=== PATIENT | male | born 1955 | race Caucasian/White ===

== ENCOUNTER 2021-08-27 10:27 | Outpatient (REF) | payer MEDICARE, SELFPAY ==
--- NOTE | ~2021-08-27 | XR_ITS ---
EXAMINATION: XR SHOULDER, RIGHT CLINICAL INFORMATION: Right shoulder pain COMPARISON: None TECHNIQUE: AP external rotation, Grashey, scapular Y, and axillary views of the right shoulder. FINDINGS: No acute fracture or dislocation. Glenohumeral joint space is maintained. Minimal marginal osteophyte formation at the inferior glenoid and inferior humeral head. Acromiohumeral interval is maintained. No periarticular soft tissue calcification. Acromioclavicular arthropathy is characterized by joint space narrowing with subchondral sclerosis and osteophyte formation. Mild chondrocalcinosis at the AC joint. Postsurgical changes of ACDF in the lower cervical spine noted. Visualized right lung as grossly clear. XR/XR shoulder RT min 2V IMPRESSION: 1. No acute osseous injury. 2. Advanced acromioclavicular arthropathy. 3. Minimal glenohumeral joint degenerative change with preserved joint space.
== END 2021-08-27 10:28 | disposition home or self-care (01) ==
LOC: HO.XRAY 10:27
PROVIDERS: PCP Family Medicine; Visit Provider Family Medicine
DX: M25.511 Pain in right shoulder (principal)
CPT/HCPCS: 73030

== ENCOUNTER → 2021-11-09 13:53 | Outpatient (BNVA) | payer MEDICARE, SELFPAY | PROVIDERS: PCP Family Medicine; Visit Provider Physician Assistant | DX: M19.011 Primary osteoarthritis, right shoulder (principal) | CPT/HCPCS: 20610; 99202; J1040 ==

== ENCOUNTER 2022-04-29 09:31 | Emergency (ER) | payer MEDICARE, SELFPAY ==
--- NOTE | 2022-04-29 | ECG_ITS ---
Test Reason : cp Blood Pressure : / mmHG Vent. Rate : 068 BPM Atrial Rate : 068 BPM P-R Int : 160 ms QRS Dur : 104 ms QT Int : 382 ms P-R-T Axes : -12 021 026 degrees QTc Int : 406 ms Normal sinus rhythm Normal ECG No previous ECGs available Referred By: Generic ED Physician Electronically Signed By:Harvey Lopez
[2022-04-29 09:33] VITALS: BP 149/88; PULSE 70; RESP 18; TEMP 36.3; O2SAT 96; BMI 33.4
[2022-04-29 09:48] VITALS: BP 139/88; PULSE 67; RESP 14; TEMP 36.7; O2SAT 97
[2022-04-29 10:21] LABS: Hematocrit 46.8 % (42.0-52.0); Hemoglobin 16.1 g/dl (14.0-18.0); Mean Corpuscular HGB Conc 34.4 g/dl (31.0-36.0); Mean Corpuscular Volume 87.3 fL (80.0-98.0); Mean Platelet Volume 8.7 fL (9.4-12.4); Platelet Count 185 X10*3/uL (160-400); Red Blood Count 5.36 X10*6/uL (4.60-5.80); Red Cell Distribution Width 12.6 % (11.0-16.0); White Blood Count 6.5 X10*3/uL (4.8-10.8)
[2022-04-29 10:26] LABS: Prothrombin Time 11.8 SEC (10.0-13.1)
[2022-04-29 10:42] LABS: Anion Gap 13 (12-20); Blood Urea Nitrogen 16 mg/dL (9-16); Calcium 9.4 mg/dL (8.4-10.2); Carbon Dioxide 25 mmol/L (22-29); Chloride 107 mmol/L (96-108); Creatinine Clr Calc Pharmacy 87.8; Estimated Glomerular Filt Rate > 60; Glucose Random 100 mg/dL (60-115); Potassium 4.2 mmol/L (3.3-5.1); Sodium 141 mmol/L (135-145)
[2022-04-29 10:54] LABS: Troponin-I High Sensitivity < 3.5 ng/L (<3.5-35.0)
--- NOTE | 2022-04-29 12:12 | ED_ITS ---
HPI - Chest Pain General Chief Complaint: Chest Pain Stated Complaint: chest pain Time Seen by Provider: 04/29/22 09:46 Source: patient Mode of arrival: ambulatory History of Present Illness HPI narrative: 67-year-old male without significant past medical history states he has been having 6 months of intermittent racing heart and was walking with his daughter last night and stated that he was having some palpitations and put on her Apple watch which demonstrated a heart rate of over 160. Patient denies any shortness of breath, dizziness, diaphoresis or nausea with his event and just ?rode it out?. Patient denies any current chest pain, palpitations, shortness of breath and states he does want to come in and get checked out. Related Data Previous Rx's Medication Instructions Recorded meloxicam 15 mg tablet 15 mg PO DAILY 30 days #30 tabs 05/21/21 cyclobenzaprine 10 mg tablet 10 mg PO TID PRN muscle spasm 10 08/27/21 days #30 tabs diclofenac potassium 50 mg tablet 50 mg PO TID PRN pain 14 days #42 08/27/21 tabs Allergies Allergy/AdvReac Type Severity Reaction Status Date / Time sildenafil [Viagra] AdvReac Unknown ineffective Verified 11/09/21 14:04 Review of Systems Review of Systems: Pertinent positives and negatives as stated in HPI [facility] Past Medical History Source: nursing notes reviewed Surgical History History of carpal tunnel release History of fusion of cervical spine History of repair of laceration Family History Family History Father Dementia Mother CHF (congestive heart failure) Hypertension Brother Afib Son In good health Daughter In good health Daughter In good health Sister No problems noted. 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 GENERAL: Well developed, well nourished, in no acute distress. HEAD: Normocephalic/atraumatic EYES: PERRLA, EOMI LUNGS: Normal breath sounds. No adventitious sounds or accessory muscle use. SpO2<97> CARDIOVASCULAR: Regular rate and rhythm without noted murmurs, no JVD or lower extremity edema. ABDOMEN: Soft, non-tender, non-distended with bowel sounds. MUSCULOSKELETAL: No tenderness, deformities, or effusions noted on gross inspection. EXTREMITIES: No cyanosis, clubbing or edema. SKIN: Inspection of the skin reveals no rashes NEUROLOGIC: Alert and oriented x 4. Strength and sensation to light touch were grossly intact x 4. Medical Decision Making Medical Decision Making [facility] Narrative: 67-year-old male who presents for evaluation for palpitations, I reviewed all investigations and I do not find any evidence of infection, anemia, electrolyte abnormalities and troponin is within normal limits. EKG does not demonstrate atrial fibrillation, however history sounds very suspicious for either intermittent SVT or atrial fibrillation he will be referred to Cardiology for either a Holter monitor or event monitor. He knows that he needs to follow-up with his primary care provider by calling the office TODAY. Differential Diagnosis Please see the discussion above Lab Data Please see the discussion above 04/29/22 10:14 04/29/22 10:14 Labs: Lab Results 04/29/22 04/29/22 04/29/22 Range/Units 10:14 10:14 10:14 WBC 6.5 (4.8-10.8) X10*3/uL RBC 5.36 (4.60-5.80) X10*6/uL Hgb 16.1 (14.0-18.0) g/dl Hct 46.8 (42.0-52.0) % MCV 87.3 (80.0-98.0) fL MCH 30.0 (27.0-33.0) pg MCHC 34.4 (31.0-36.0) g/dl RDW 12.6 (11.0-16.0) % Plt Count 185 (160-400) X10*3/uL MPV 8.7 L (9.4-12.4) fL Absolute Nucleated RBC 0.000 (0.0-0.012) X10*3/uL Nucleated RBC % (auto) 0.0 (0.0-0.2) /100WBC PT 11.8 (10.0-13.1) SEC INR 1.0 (0.9-1.1) Sodium 141 (135-145) mmol/L Potassium 4.2 (3.3-5.1) mmol/L Chloride 107 (96-108) mmol/L Carbon Dioxide 25 (22-29) mmol/L Anion Gap 13 (12-20) BUN 16 (9-16) mg/dL Creatinine 0.96 (0.5-1.4) mg/dL Estim Creat Clear Calc 87.8 Estimated GFR > 60 Random Glucose 100 (60-115) mg/dL Calcium 9.4 (8.4-10.2) mg/dL Troponin I High Sens (<3.5-35.0) ng/L 04/29/22 Range/Units 10:14 WBC (4.8-10.8) X10*3/uL RBC (4.60-5.80) X10*6/uL Hgb (14.0-18.0) g/dl Hct (42.0-52.0) % MCV (80.0-98.0) fL MCH (27.0-33.0) pg MCHC (31.0-36.0) g/dl RDW (11.0-16.0) % Plt Count (160-400) X10*3/uL MPV (9.4-12.4) fL Absolute Nucleated RBC (0.0-0.012) X10*3/uL Nucleated RBC % (auto) (0.0-0.2) /100WBC PT (10.0-13.1) SEC INR (0.9-1.1) Sodium (135-145) mmol/L Potassium (3.3-5.1) mmol/L Chloride (96-108) mmol/L Carbon Dioxide (22-29) mmol/L Anion Gap (12-20) BUN (9-16) mg/dL Creatinine (0.5-1.4) mg/dL Estim Creat Clear Calc Estimated GFR Random Glucose (60-115) mg/dL Calcium (8.4-10.2) mg/dL Troponin I High Sens < 3.5 (<3.5-35.0) ng/L Independent Interpretation I performed an independent interpretation of an: EKG Interpretation: Normal sinus rhythm, HR-68, no STEMI, NH/QRS/QTC is within normal limits External Record Review External record reviewed: Prior outpatient labs Discharge Plan Discharge Clinical Impression: Palpitations Patient Disposition: Home, Self-Care Instructions: Heart Palpitations (DC) Additional Instructions: 1. Recommend to stop your alcohol intake, try to limit your caffeine intake. 2. Call the office of Cardiology today to set up an appointment for Holter monitor and/or event monitor for further characterization of these palpitations that you have been experiencing. 3. Follow-up with primary care provider by calling the office today to set up an appointment for further outpatient management. Return to the ER for any worsening symptoms. Prescriptions: No Action meloxicam 15 mg tablet 15 mg PO DAILY 30 Days Qty: 30 1RF Rx Instructions: Take with food diclofenac potassium 50 mg tablet 50 mg PO TID PRN (Reason: pain) 14 Days Qty: 42 0RF cyclobenzaprine 10 mg tablet 10 mg PO TID PRN (Reason: muscle spasm) 10 Days Qty: 30 0RF Referrals: Gabe Warren MD [Primary Care Provider] - Harvey Lopez MD [Physician] - 1 day (Patient with intermittent palpitations for 6 months, apple watch identified a rate of over 160 yesterday, patient completely asymptomatic on presentation to this emergency room, no evidence of infection/anemia/electrolyte abnormality but patient does drink alcohol daily.)
== END 2022-04-29 13:00 | disposition home or self-care (01) ==
PROVIDERS: Emergency Provider Student in an Organized Health Care Education/Training Program; PCP Family Medicine
DX: R07.89 Other chest pain (principal); R00.2 Palpitations; Z79.899 Other long term (current) drug therapy
CPT/HCPCS: 36415; 80048; 84484; 85027; 85610; 93005; 99283; 99285

== ENCOUNTER → 2022-06-20 15:05 | Outpatient (BNVA) | payer MEDICARE, SELFPAY | PROVIDERS: PCP Family Medicine; Referring Provider Family Medicine; Visit Provider Nurse Practitioner Family | DX: R00.2 Palpitations (principal); R06.02 Shortness of breath | CPT/HCPCS: 99202 ==

== ENCOUNTER → 2022-08-26 10:00 | Outpatient (BNV) | payer MEDICARE, SELFPAY | PROVIDERS: PCP Family Medicine; Visit Provider Internal Medicine Cardiovascular Disease | DX: I48.91 Unspecified atrial fibrillation (principal) | CPT/HCPCS: 93244; 93306 ==

== ENCOUNTER → 2022-08-26 10:23 | Outpatient (REF) | payer MEDICARE, SELFPAY ==
--- NOTE | 2022-08-26 10:25 | HM_ITS ---
Conclusion: 1. Patient was monitored for total period of 5 days 2. Baseline was normal sinus rhythm with average heart of 74 beats per minute 3. Intermittent episodes of atrial fibrillation with total burden of 13.2% with longest episode lasting 15 hours and 53 minutes on day 3 with the fastest heart rate of 200 beats per minute 4. Rare PACs noted 5. No significant pauses noted 6. Patient had 1 symptom entry in the diary but this was associated with disconnected lead an artifact MTDD
== END ==
LOC: HO.CARD 10:23
PROVIDERS: PCP Family Medicine; Visit Provider Nurse Practitioner Family
DX: R00.2 Palpitations (principal)
CPT/HCPCS: 93242; 93306

== ENCOUNTER 2022-09-12 13:27 | Outpatient (REF) | payer MEDICARE, SELFPAY ==
[2022-09-12 16:09] LABS: B Type Natriuretic Peptide 220 pg/mL (<100)
[2022-09-12 16:21] LABS: Anion Gap 16 (12-20); Carbon Dioxide 22 mmol/L (22-29); Chloride 106 mmol/L (96-108); Estimated Glomerular Filt Rate > 60; Glucose Random 93 mg/dL (60-115); Magnesium 2.2 mg/dL (1.6-2.6); Potassium 4.3 mmol/L (3.3-5.1); Sodium 140 mmol/L (135-145)
[2022-09-12 17:09] LABS: Blood Urea Nitrogen 16 mg/dL (9-16)
== END 2022-09-12 13:28 | disposition home or self-care (01) ==
LOC: HO.LAB 13:27
PROVIDERS: PCP Family Medicine; Visit Provider Nurse Practitioner Family
DX: I48.91 Unspecified atrial fibrillation (principal); R06.02 Shortness of breath; R00.2 Palpitations; E66.9 Obesity, unspecified; Z68.35 Body mass index [BMI] 35.0-35.9, adult; Z79.899 Other long term (current) drug therapy
CPT/HCPCS: 36415; 80048; 83735; 83880; 93005; 99212

== ENCOUNTER 2022-09-12 13:27 | Outpatient (AMB) | payer MEDICARE, SELFPAY ==
[2022-09-12 13:49] VITALS: BP 120/90; PULSE 111; BMI 35.2
--- NOTE | 2022-09-12 13:49 | A.OFFVIS_ITS ---
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 He was ordered to start on diltiazem and Eliquis. An echocardiogram was performed and he now presents for follow-up. Today he reports that he has had heart palpitations consistently since yesterday afternoon after riding his bike. He can feel his heart beating fast. He denies having chest discomfort or shortness of breath but has had an intermittent cough in the last day. No dizziness, presyncope, syncope, falls. No PND, orthopnea or edema. He is maintaining good hydration. He continues to drink 2-3 beers daily. is present. He went to roll picker his medications from the pharmacy and they told him there was a conflict so he did not purchase them. He has not been on med management for his AFib. [facility] Medical History Arthritis of right acromioclavicular joint Asthma, mild intermittent, well-controlled Surgical History History of carpal tunnel release History of fusion of cervical spine History of repair of laceration Family History Father Dementia Mother CHF (congestive heart failure) Hypertension Brother Afib Son In good health Daughter In good health Daughter In good health Sister No problems noted. 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 Review of Systems Const All systems reviewed & are unremarkable except as noted in HPI and below ENT Reports dizziness Card Denies chest pain, Denies chest pain at rest, Denies chest pain with activity, Denies rapid heart rate, Denies pedal edema, Denies edema, Denies leg edema, Denies lightheadedness, Reports palpitations, Denies dyspnea, Denies dyspnea on exertion and Denies orthopnea Resp Reports cough, Denies dyspnea and Denies dyspnea on exertion GI Denies hematochezia and Denies change in stool character Musc Denies abnormal gait, Reports limited range of motion, Reports muscle cramps, Denies muscle weakness, Denies numbness, Denies radiating pain into limb, Denies stiffness and Denies tingling Neuro Denies abnormal gait, Reports dizziness, Denies numbness and Denies tingling Endo Reports palpitations Physical Exam Vital Signs: Last Vital Signs Pulse 111 H 09/12/22 13:49 BP 120/90 H 09/12/22 13:49 BMI result Body Mass Index 35.2 Const General: cooperative, comfortable and no acute distress Orientation/consciousness: patient oriented x3 Neck Neck: Yes normal visual inspection and Yes no JVD Resp Effort & Inspection: normal respiratory effort Auscultation: clear to auscultation bilaterally, no crackles, no rales, no rhonchi and no wheezes Cardio Jugular venous distension: no JVD Rate: tachycardic Rhythm: abnormal rhythm Heart sounds: S1 normal heart sound present, S2 normal heart sound present, no murmurs and no rubs GI Inspection: Yes normal to inspection Neuro General: patient oriented x3 Extrem General: Yes normal to inspection and No no pedal edema Psych Appearance: grossly normal Mental Status: mental status grossly normal Speech and movement: Normal speech and movement present Office Procedures EKG Details: Today, read by me, atrial fibrillation with rapid ventricular response, rate 111, no acute ST or T-wave abnormalities, QTC 437 millisecond [id number], Complete Assessment & Plan Assessment & Plan (1) Atrial fibrillation with RVR: Code(s): I48.91 - Unspecified atrial fibrillation Plan: New finding of paroxysmal atrial fibrillation inpatient with new were reports of heart palpitations. Holter monitor done on 08/26/2022 for 5 days showed baseline rhythm sinus with average heart rate 74, intermittent episodes of paroxysmal atrial fibrillation with burden of 13.2%, longest episode nearly 16 hours with fastest heart rate 200 beats per minute. Echocardiogram done 08/26/2022 showed EF 55-60%, mild aortic regurgitation, ascending aorta 3.7 cm. When Holter report was reviewed patient was notified and instructed to start on diltiazem CD 120 mg daily as well as Eliquis 5 mg b.i.d.. He says he went to the pharmacy and they told him there was a med conflict. He previously had meloxicam on his med list which has since been discontinued on our side. Pharmacy notified. Today he is reporting heart palpitations that started yesterday after riding his bike. EKG does confirm atrial fibrillation with rapid ventricular response rate 111. He does have an intermittent dry cough but no other signs indicating heart failure. Offered ER for evaluation and treatment and he declines. Will check labs today including CMP, magnesium and BNP. Diagnosis of atrial fibrillation, stroke risk with AFib, treatment plans for AFib reviewed with him and . At this time will work on obtaining rhythm control. Will have him start on his previously ordered diltiazem and Eliquis. Office EKG in 3 days. Emergency care if needed for ongoing sustained palpitations. Plan to review labs once available and call him if any significant abnormalities. Discussed avoidance of alcohol, caffeine reduction, rest quietly when he feels he is in AFib. Office visit 1 months, sooner if needed (2) Palpitations: Code(s): R00.2 - Palpitations (3) Shortness of breath: Code(s): R06.02 - Shortness of breath Plan: Reports of shortness of breath with activity which he relates to his asthma and drywall dust exposure. Lungs are clear on examination. Echocardiogram as above. Once heart rate and rhythm controlled, will plan on nuclear stress test for further evaluation. Orders: Orders Basic Metabolic Panel Today I48.91 - Unspecified atrial fibrillation B Type Natriuretic Peptide Today R06.02 - Shortness of breath Magnesium Today I48.91 - Unspecified atrial fibrillation Coding Level of Care Code Est Pt Level 4 (60619) Diagnoses Atrial fibrillation with RVR I48.91 Palpitations R00.2 Shortness of breath R06.02 CPT Codes EKG - CPT: 30117-[id number], Complete ([id number]) Time Spent (min) 28 Comment Chart review, documentation, interview, assessment
== END 2022-09-12 14:37 | disposition home or self-care (01) ==
PROVIDERS: Visit Provider Nurse Practitioner Family
DX: I48.91 Unspecified atrial fibrillation (principal); R00.2 Palpitations; R06.02 Shortness of breath
CPT/HCPCS: 93010; 99214

== ENCOUNTER 2022-09-16 08:26 | Outpatient (AMB) | payer MEDICARE, SELFPAY ==
--- NOTE | 2022-09-16 09:08 | AM.OFFVISNUR ---
Intake Intake Visit Reasons: EKG Intake Note: Recent h/o afib that was noted on Marija 08/26. He was here on 09/12/22 to see Valeria More NP, and was started on diltiazem 180mg qd and Eliquis 5mg bid. He is taking meds as directed. 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 EKG on Valeria More's desk for review and signature. Pt taking all meds as directed. Office Procedures EKG [id number], Complete Coding Diagnoses CPT Codes EKG - CPT: 41993-[id number], Complete ([id number]) Time Spent (min) 20 Comment EKG, Med reconciliation, education.
== END 2022-09-16 09:15 | disposition home or self-care (01) ==
PROVIDERS: PCP Family Medicine; Visit Provider Nurse Practitioner Family
DX: R94.31 Abnormal electrocardiogram [ECG] [EKG] (principal)
CPT/HCPCS: 93010

== ENCOUNTER → 2022-09-16 08:26 | Outpatient (BNVA) | payer MEDICARE, SELFPAY | PROVIDERS: PCP Family Medicine; Visit Provider Nurse Practitioner Family | DX: I48.91 Unspecified atrial fibrillation (principal) | CPT/HCPCS: 93005 ==

== ENCOUNTER 2022-10-15 08:03 | Outpatient (AMB) | payer MEDICARE, SELFPAY ==
--- NOTE | 2022-10-15 08:07 | MHC.OFFVIS ---
Intake Vital Signs 10/15/22 08:08 Height 5 ft 8 in Weight 229 lb 4.492 oz BMI 34.9 BP 120/84 Blood Pressure Location Lt brachial Position Sitting Pulse 67 Pulse Source Monitor Intake Visit Reasons: 1 mth f/up Intake Note: 1 month follow up with EKG. Open Claims Representative Required: No Accompanied by: Self / Same As Patient Allergies sildenafil [Viagra] Adverse Reaction (Unknown, Verified 09/12/22 14:05) ineffective Medication List - Last Reconciled 10/15/22 by Valeria More NP-C albuterol sulfate 90 mcg/actuation 1 puff inhalation QID apixaban (Eliquis) 5 mg PO BID dronedarone (Multaq) 400 mg PO BID levalbuterol tartrate 45 mcg/actuation 2 puffs inhalation Q4-6H PRN 30 days HPI 1 mth f/up HPI Details Parrish is a 67-year-old male with past medical history of obesity, mild asthma who was recently evaluated for heart palpitations with Holter monitor showing paroxysmal atrial fibrillation.? He was ordered to start on diltiazem and Eliquis.? Continue to have episodes and Multaq was added. He now presents for follow-up. Today he reports that he needed to stop diltiazem as it was giving him a pain that went up the back of his neck and into his head. He continues to take Multaq as directed. He has been getting breakthrough episodes of atrial fibrillation about once a week. He can feel the heart palpitations but no other significant associated symptoms. No chest discomfort at rest or with activity. His prior cough has resolved. He has some shortness of breath with exertion which is not new. He does report history of asthma. He denies any shortness of breath at rest, no PND, orthopnea or edema. No presyncope, syncope, falls. No bleeding issues reported. Taking meds as directed with the exception of diltiazem. [facility] Medical History Arthritis of right acromioclavicular joint Asthma, mild intermittent, well-controlled Surgical History History of carpal tunnel release History of fusion of cervical spine History of repair of laceration Family History Father Dementia Mother CHF (congestive heart failure) Hypertension Brother Afib Son In good health Daughter In good health Daughter In good health Sister No problems noted. 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 Review of Systems Const All systems reviewed & are unremarkable except as noted in HPI and below Denies weakness ENT Denies dizziness Card Denies chest pain, Denies chest pain with activity, Denies syncope, Denies rapid heart rate, Denies pedal edema, Denies edema, Denies leg edema, Denies lightheadedness, Reports palpitations, Denies dyspnea, Reports dyspnea on exertion and Denies orthopnea Resp Denies cough, Denies dyspnea and Reports dyspnea on exertion GI Denies hematochezia and Denies change in stool character Musc Denies abnormal gait, Denies muscle cramps, Denies muscle weakness, Denies numbness, Denies radiating pain into limb and Denies tingling Neuro Denies abnormal gait, Denies dizziness, Denies syncope, Denies numbness, Denies tingling and Denies weakness Endo Reports palpitations Physical Exam Vital Signs: Last Vital Signs Pulse 67 10/15/22 08:08 BP 120/84 10/15/22 08:08 BMI result Body Mass Index 34.9 Const General: cooperative, comfortable and no acute distress Orientation/consciousness: patient oriented x3 Neck Neck: Yes normal visual inspection and Yes no JVD Resp Effort & Inspection: normal respiratory effort Auscultation: clear to auscultation bilaterally, no crackles, no rales, no rhonchi and no wheezes Cardio Jugular venous distension: no JVD Rate: tachycardic Rhythm: abnormal rhythm Heart sounds: S1 normal heart sound present, S2 normal heart sound present, no murmurs and no rubs GI Inspection: Yes normal to inspection Neuro General: patient oriented x3 Extrem General: Yes normal to inspection and No no pedal edema Psych Appearance: grossly normal Mental Status: mental status grossly normal Speech and movement: Normal speech and movement present Office Procedures EKG Details: Today, reviewed by me, normal sinus rhythm, no acute ST or T-wave abnormalities, QTC 448 milliseconds, rate 67 [id number], Complete Assessment & Plan Assessment & Plan (1) Atrial fibrillation with RVR: Code(s): I48.91 - Unspecified atrial fibrillation Plan: New finding of paroxysmal atrial fibrillation in patient with reports of heart palpitations. Holter monitor done on 08/26/2022 for 5 days showed baseline rhythm sinus with average heart rate 74, intermittent episodes of paroxysmal atrial fibrillation with burden of 13.2%, longest episode nearly 16 hours with fastest heart rate 200 beats per minute. Echocardiogram done 08/26/2022 showed EF 55-60%, mild aortic regurgitation, ascending aorta 3.7 cm. When Holter report was reviewed patient was notified and instructed to start on diltiazem CD 120 mg daily as well as Eliquis 5 mg b.i.d. there was a minor delay in starting his medication and on last visit he came with palpitations and EKG does confirm atrial fibrillation with rapid ventricular response rate 111. He then started the diltiazem and dose was increased. He continued to have breakthrough episodes and Multaq was added. EKG done today showing sinus rhythm, QTC 448 milliseconds, rate 67. He tells me he had to stop the diltiazem due to reports of pain going up his neck and into his head each time after taking diltiazem. He is currently noticing heart palpitations approximately once a week lasting several hours. Will continue Multaq at this time with hopes that it will continue to further suppress AFib. Will order exercise nuclear stress test to evaluate for any ischemia. Will order home sleep study to evaluate for any obstructive sleep apnea. Will continue to work on rhythm control. If he has ongoing recurrent AFib then will consider alternate antiarrhythmic. He also may need ablation going forward. Emergency care if needed for concerning/sustained palpitations. Discussed avoidance of alcohol (drinking 2-3 beers daily), caffeine reduction, rest quietly when he feels he is in AFib. Office visit 3 months, sooner if needed (2) Palpitations: Code(s): R00.2 - Palpitations (3) Shortness of breath: Code(s): R06.02 - Shortness of breath Plan: Reports of shortness of breath with activity which he relates to his asthma and drywall dust exposure. Lungs are clear on examination. Echocardiogram as above. Nuclear stress test being ordered. (4) Paroxysmal A-fib: Code(s): I48.0 - Paroxysmal atrial fibrillation Orders: Orders CA stress test Today I48.0 - Paroxysmal atrial fibrillation NM cardiolite stress test Today I48.0 - Paroxysmal atrial fibrillation, R06.02 - Shortness of breath RT home sleep study Today G47.10 - Hypersomnia, unspecified, I48.0 - Paroxysmal atrial fibrillation Coding Level of Care Code Est Pt Level 3 (30656) Diagnoses Atrial fibrillation with RVR I48.91 Palpitations R00.2 Shortness of breath R06.02 Paroxysmal A-fib I48.0 CPT Codes EKG - CPT: 43387-[id number], Complete ([id number]) Time Spent (min) 24 Comment Chart review, documentation, interview, assessment
[2022-10-15 08:08] VITALS: BP 120/84; PULSE 67; BMI 34.9
== END 2022-10-15 08:35 | disposition home or self-care (01) ==
PROVIDERS: PCP Family Medicine; Referring Provider Family Medicine; Visit Provider Nurse Practitioner Family
DX: I48.91 Unspecified atrial fibrillation (principal); R00.2 Palpitations; R06.02 Shortness of breath; I48.0 Paroxysmal atrial fibrillation
CPT/HCPCS: 93010; 99213

== ENCOUNTER → 2022-10-15 08:03 | Outpatient (BNVA) | payer MEDICARE, SELFPAY | PROVIDERS: PCP Family Medicine; Referring Provider Family Medicine; Visit Provider Nurse Practitioner Family | DX: I48.91 Unspecified atrial fibrillation (principal); R00.2 Palpitations; R06.02 Shortness of breath; I48.0 Paroxysmal atrial fibrillation | CPT/HCPCS: 93005; 99212 ==

== ENCOUNTER → 2022-11-29 07:39 | Outpatient (REF) | payer MEDICARE, SELFPAY ==
--- NOTE | ~2022-11-29 | NM_ITS ---
EXERCISE MYOCARDIAL PERFUSION STUDY INDICATION: Atrial fibrillation, shortness of breath TECHNIQUE: The patient was brought in for an exercise perfusion study on 11/29/2022. Patient performed exercise as per Shashi protocol and was injected 35 mCi of sestamibi once target heart rate was achieved. Images were obtained using the SPECT gamma camera interlaced with the gating device. Images were obtained in supine position. Resting perfusion study was performed on 12/02/2022. Patient was administered 35 mCi of sestamibi intravenously at rest. Images were then obtained in supine position. Images were processed with the software and compared side to side in short axis, horizontal long axis and vertical long axis views. Total DLP 103mGy-cm. FINDINGS: Raw images were reviewed. The stress perfusion study showed diminished tracer uptake along the basal to mid part of inferior wall. With CT attenuation correction, there is improvement suggestive of diaphragmatic attenuation artifact. The gated study shows normal LV systolic function with calculated LVEF of 63%. LV cavity is normal in size. The gated study shows normal wall thickening and contraction of segments. Resting study shows no significant perfusion defects. Gating at rest reveals normal wall motion with ejection fraction at 45%. The findings are consistent with no clear reversible or fixed perfusion defects. NM/NM cardiolite stress test IMPRESSION: 1. Myocardial perfusion imaging study shows probably normal myocardial perfusion. 2. Gated LVEF is 63% during stress and 45% during rest. 3. Transient ischemic dilatation not present. EKG component of the test reported separately.
--- NOTE | 2022-11-29 07:41 | CA_ITS ---
Acquisition Time: 2022-11-29 07:45:32 Total Exercise Time: 00:09:29 Test Indications: AFIB, SOB Medications: SEE H Protocol: RIZWANA Max HR: 139 BPM 89% of Pred: 155 BPM Max BP: 154/068 mmHG Max Work Load: 10.7 METS Exercise stress test exercise 9 min 29 sec of Rizwana protocol achieving 89% MPHR, with mild SOB, no chest discofmort, without arrhythmias, with normotensive response to exercise, without EKG changes. Nuclear images pending. Test reviewed with Dr. Lopez. Referred By: Valeria More Overread By: Amber Kaur
== END ==
LOC: HO.CARD 07:39
PROVIDERS: PCP Family Medicine; Visit Provider Nurse Practitioner Family
DX: I48.0 Paroxysmal atrial fibrillation (principal); R06.02 Shortness of breath
CPT/HCPCS: 78452; 93017; A9500

== ENCOUNTER → 2022-11-29 07:41 | Outpatient (BNV) | payer MEDICARE, SELFPAY | PROVIDERS: PCP Family Medicine; Visit Provider Nurse Practitioner | DX: I48.0 Paroxysmal atrial fibrillation (principal); R06.02 Shortness of breath | CPT/HCPCS: 78452; 93016; 93018 ==

== ENCOUNTER → 2022-12-05 08:47 | Outpatient (REF) | payer MEDICARE, SELFPAY | LOC: HO.SL 08:47 | PROVIDERS: PCP Family Medicine; Visit Provider Nurse Practitioner Family | DX: Z13.89 Encounter for screening for other disorder (principal) ==

== ENCOUNTER → 2022-12-10 15:44 | Outpatient (REF) | payer MEDICARE, SELFPAY | LOC: HO.SL 15:44 | PROVIDERS: Visit Provider Nurse Practitioner Family | DX: G47.10 Hypersomnia, unspecified (principal); R06.83 Snoring; I48.0 Paroxysmal atrial fibrillation | CPT/HCPCS: 95806 ==

== ENCOUNTER → 2022-12-10 15:55 | Outpatient (BNV) | payer MEDICARE, SELFPAY | PROVIDERS: Visit Provider Internal Medicine | DX: R06.83 Snoring (principal); R40.0 Somnolence | CPT/HCPCS: 95806 ==

== ENCOUNTER 2022-12-17 11:44 | Outpatient (AMB) | payer MEDICARE, SELFPAY ==
[2022-12-17 11:54] VITALS: BP 120/58; PULSE 66; RESP 13; TEMP 37.1; O2SAT 100; BMI 40.5
--- NOTE | 2022-12-17 11:54 | A.OFFPC_ITS ---
Vital Signs 12/17/22 11:54 Height 5 ft 8 in Weight 266 lb 8 oz BMI 40.5 BP 120/58 L Blood Pressure Location Lt brachial Position Sitting Respiration 13 Pulse 66 Pulse Source Pulse Oximeter Temp 98.7 F Temp Source Oral Pulse Oximetry (%) 100 Oxygen Delivery Method Room Air Intake Visit Reasons: Annual Physical Intake Note: Patient is here for his physical and states he has no concerns at this time. 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 No recent labs to review. Pt reports he is tolerating medication regimen well. Pt has complaints of R ring finger trigger finger. [facility] Medical History Arthritis of right acromioclavicular joint Asthma, mild intermittent, well-controlled Surgical History History of fusion of cervical spine History of repair of laceration History of carpal tunnel release Family History Father Dementia Mother CHF (congestive heart failure) Hypertension Brother Afib Son In good health Daughter In good health Daughter In good health Sister No problems noted. Social History (Updated 12/17/22 @ 12:09 by Cyndee Curiel CMA) Household Members: Spouse Housing: House Alcohol intake: current Alcohol intake frequency: 0-2 drinks per day Alcohol type: beer Patient Tobacco Use Status: Former Tobacco user Years Smoked: 15 Packs Per Year: 8 Packs per year/per ci.75 e-Cigarette/Vaping Use: Never Used Second Hand Smoke Exposure: No service: No Current occupational status: retired Current occupational exposures/hazards: No Cognitive needs: No Hearing needs: No Vision needs: Yes (wears glasses) Questionnaire PHQ-9 Over the last 2 weeks, how often have you been bothered by any of the following problems? 1. Little interest or pleasure in doing things: not at all 2. Feeling down, depressed, or hopeless: not at all 3. Trouble falling or staying asleep, or sleeping too much: not at all 4. Feeling tired or having little energy: not at all 5. Poor appetite or overeating: not at all 6. Feeling bad about yourself - or that you are a failure or have let yourself or your family down: not at all 7. Trouble concentrating on things, such as reading the newspaper or watching television: not at all 8. Moving or speaking so slowly that other people could have noticed. Or the opposite - being so fidgety or restless that you have been moving around a lot more than usual: not at all 9. Thoughts that you would be better off or of hurting yourself in some way: not at all Total score: 0 Depression Screening Interpretation: Negative Depression Screening Done: Yes 85543 - PHQ-9 Billing: Yes Source: Developed by Drs. Delano Thibodeaux, Toma Del Rosario, Jon Pan and colleagues, with an educational ronn from [employer]. Thrive Questionnaire Date Thrive assessed: 12/17/22 I am a: Patient What is your living situation today?: I have a steady place to live Within the past 12 months, did the food you bought not last and you didn't have the money to get more?: Never true Within the past 12 months, did you worry whether your food would run out before you got money to buy more?: Never true Do you have trouble paying for medicines?: No Do you have trouble getting transportation to medical appointments?: No Do you have trouble paying your heating and electricity bill?: No Do you have trouble taking care of your child, family member or friend?: No Do you have trouble with day-to-day activities such as bathing, preparing meals, shopping, managing finances, etc.?: No Are you currently unemployed and looking for a job?: No Are you interested in more education?: No Please select the resources that you would like help with: None Currently or been in a relationship where the following occur: no concerns reported AUDIT C Alcohol Use Questionnaire (AUDIT-C) 1. How often do you have a drink containing alcohol?: Never 3. How often do you have six or more drinks on one occasion?: Never Total Score: 0 JOSÉ MIGUEL-7 AMB Questionnaire JOSÉ MIGUEL-7 Date JOSÉ MIGUEL - 7 assessed: 12/17/22 Feeling nervous, anxious, or on edge: 0 = Not at all Not being able to stop or control worryin = Not at all Worrying too much about different things: 0 = Not at all Trouble relaxin = Not at all Being so restless that it is hard to sit still: 0 = Not at all Becoming easily annoyed or irritable: 0 = Not at all Feeling afraid as if something awful might happen: 0 = Not at all Total JOSÉ MIGUEL-7 score (0-4 normal; 5-9 mild; 10-14 moderate; 15-21 severe): 0 Source: Developed by Drs. Delano Thibodeaux, Toma Del Rosario, Jon Pan and colleagues, with an educational ronn from [employer]. JOSÉ MIGUEL-7 Assessment Billing JOSÉ MIGUEL-7 Assessment Tool: JOSÉ MIGUEL-7 Assessment 93228 ACT Questionnaire In the past 4 weeks, how much of the time did your asthma keep you from getting as much done at work, school or at home?: None of the time During the past 4 weeks, how often have you had shortness of breath?: 1-2 times a week During the past 4 weeks, how often did your asthma symptoms wake you up at night or earlier than usual in the morning?: Not at all During the past 4 weeks, how often have you had to use your rescue inhaler or nebulizer medication?: Once a week or less How would you rate your asthma control during the past 4 weeks?: Completely controlled ACT Interpretation: Negative Score: 23 Review of Systems Const Denies chills, Denies fatigue, Denies fever(s), Denies headache(s) and Denies weakness Eyes Denies change in vision ENT Denies dizziness, Denies headache(s), Denies hearing loss, Denies nasal congestion, Denies sinus pain, Denies sinus pressure and Denies sore throat Card Denies chest pain, Denies lightheadedness, Denies dyspnea and Denies other (palpitations) Resp Denies cough, Denies dyspnea and Denies wheezing GI Denies abdominal pain, Denies melena, Denies hematochezia, Denies change in bowel habits, Denies dyspepsia and Denies nausea Denies hematuria and Denies dysuria Musc Denies abnormal gait, Denies myalgias, Denies arthralgias, Denies numbness and Denies tingling Skin/Breast Denies rash, Denies unusual bruising and Denies wounds Neuro Denies abnormal gait, Denies dizziness, Denies headache(s), Denies memory loss, Denies numbness, Denies Sensory deficit (Neuro), Denies tingling and Denies weakness Psych Denies anxiety, Denies depression and Denies memory loss Endo Denies cold intolerance, Denies fatigue, Denies heat intolerance, Denies polydipsia and Denies polyuria Freddie/Lymph Denies easy bleeding and Denies easy bruising Aller/Immun Denies wheezing Physical exam (Primary Care) Vital Signs: Last Vital Signs Temp 98.7 F 12/17/22 11:54 Pulse 66 12/17/22 11:54 Resp 13 12/17/22 11:54 BP 120/58 L 12/17/22 11:54 Pulse Ox 100 12/17/22 11:54 Oxygen Delivery Method Room Air 12/17/22 11:54 BMI result Body Mass Index 40.5 Tobacco/Smoking Status: Tobacco use Status Tobacco use date assessed 12/17/22 12/17/22 12:03 Patient Tobacco Use Status Former Tobacco user 12/17/22 12:09 e-Cigarette/Vaping Use Never Used 12/17/22 12:09 PHQ-9: PHQ-9 Score PHQ-9: Total score 0 12/17/22 12:23 Depression Screening Interpretation: Negative Thrive Assessment: Date of Thrive Assessment Date Thrive assessed 12/17/22 12/17/22 12:05 Currently or been in a relationship where the following occur: no concerns reported Const General: no acute distress, well developed, alert and awake Nutritional Appearance: well nourished and obese morbidly obese Orientation/consciousness: patient oriented x3 HENMT Head: Yes normocephalic and Yes atraumatic Ears: hearing grossly normal bilaterally and TM's normal bilaterally General nose exam: Normal external nose present and Normal nares present Mouth: Normal oral and palatal mucosa present and moist mucous membranes Teeth and gingiva: dentition normal Throat: Yes posterior oropharynx normal Eyes General: appearance normal, both eyes and all related structures Pupils: Equal, round and reactive pupils present and Pupil accommodation reflex normal EOM: EOMs intact bilaterally Neck Neck: Yes normal visual inspection, Yes no lymphadenopathy and Yes trachea midline Thyroid: Thyroid normal Carotids: no bruits Lymphatic: no lymphadenopathy noted Chest Chest palpation & inspection: normal inspection of the chest Resp Effort & Inspection: normal respiratory effort Auscultation: clear to auscultation bilaterally Cardio Rate: regular rate Rhythm: regular rhythm Heart sounds: S1 normal heart sound present, S2 normal heart sound present, no gallops, no murmurs and no rubs Bruits: no abdominal aortic bruits and no carotid bruits GI Palpation (GI): No Abdominal aortic bruit present, Soft to palpation, nontender, No hepatosplenomegaly present and No Rebound tenderness present Auscultation: normal bowel sounds General: Yes no CVA tenderness Back/Spine/Pelvis Back: no CVA tenderness Cervical Spine: cervical ROM normal and No Cervical spine tenderness Thoracic/Lumbar Spine: thoraco-lumbar ROM normal, No pain with thoraco-lumbar ROM, No thoracic spinal tenderness and No lumbar spinal tenderness Skin Lesions: no lesions Rashes: no rashes Trauma: no lacerations or abrasions Wounds: no wounds Nails: normal Neuro General: patient oriented x3 Cranial nerves: Yes Equal, round and reactive pupils present Cognition (Neuro): normal cognition Gait exam (Neuro): Normal gait present Motor exam (neuro): 5/5 motor strength present throughout Sensory Exam: No Sensory deficit (Neuro) Deep tendon reflexes (DTR's): Right patellar reflex intensity grade: 2+ and Left patellar reflex intensity grade: 2+ Extrem General: Yes normal to inspection and No edema Psych Appearance: grossly normal Affect: normal affect Attitude: cooperative Thought process: Normal thought process present Assessment and Plan Assessment & Plan (1) Adult general medical exam: Code(s): Z00.00 - Encounter for general adult medical examination without abnormal findings Plan: 67-year-old?male?presents?for?complete?physical?exam Encouraged?healthy?diet?with?active?lifestyle?and?plenty?of?exercise (2) Paroxysmal A-fib: Code(s): I48.0 - Paroxysmal atrial fibrillation Plan: Currently?in?regular?rhythm He?is?rhythm?controlled?with?Multaq?and?he?is?anticoagulated?with?Eliquis Follow-up?with?Cardiology?as?recommended (3) Trigger finger: Code(s): M65.30 - Trigger finger, unspecified finger Plan: Right?ring?finger?catches?and?needs?to?be?extended?using?his?other?hand. Will?refer?to?hand?surgery?for?evaluation (4) Screening for colon cancer: Code(s): Z12.11 - Encounter for screening for malignant neoplasm of colon Plan: Cologuard?test?in?September?was?negative. He?will?have?another?Cologuard?test?in?3?year (5) Screening for prostate cancer: Code(s): Z12.5 - Encounter for screening for malignant neoplasm of prostate Plan: Check?PSA Orders: Orders Lipid Panel Today Z00.00 - Encounter for general adult medical examination without abnormal findings Microalbumin, Random (w Creat) Today I10 - Essential (primary) hypertension TSH reflex Free T4 Today Z00.00 - Encounter for general adult medical examination without abnormal findings Comprehensive [place]. Panel Fast Today Z00.00 - Encounter for general adult medical examination without abnormal findings Complete Blood Count Auto Diff Today Z00.00 - Encounter for general adult medical examination without abnormal findings Prostate Specific Antigen Scr Today Z12.5 - Encounter for screening for malignant neoplasm of prostate UA and rflx microscopic Today Z00.00 - Encounter for general adult medical examination without abnormal findings Referrals Hand Surgery Referral M65.30 - Trigger finger, unspecified finger Coding Level of Care Code Est Pt Level 3 (39516) Est Pt Prev Care >65y(33256) Diagnoses Adult general medical exam Z00.00 Paroxysmal A-fib I48.0 Trigger finger M65.30 Screening for colon cancer Z12.11 Screening for prostate cancer Z12.5 Additional Codes JOSÉ MIGUEL-7 Assessment Billing - JOSÉ MIGUEL-7 Assessment Tool: JOSÉ MIGUEL-7 Assessment 97488 ([id number])
== END 2022-12-17 12:43 | disposition home or self-care (01) ==
PROVIDERS: PCP Family Medicine; Visit Provider Family Medicine
DX: Z00.00 Encounter for general adult medical examination without abnormal findings (principal); I48.0 Paroxysmal atrial fibrillation; M65.311 Trigger thumb, right thumb; Z12.11 Encounter for screening for malignant neoplasm of colon; Z12.5 Encounter for screening for malignant neoplasm of prostate
CPT/HCPCS: 99397

== ENCOUNTER 2022-12-24 08:20 | Outpatient (REF) | payer MEDICARE, SELFPAY ==
[2022-12-24 11:17] LABS: MANUAL DIFF FLAG NO
[2022-12-24 11:27] LABS: Basophils Absolute Auto 0.1 X10*3/uL (0.0-0.2); Basophils Percent Auto 0.9 % (0-2); Eosinophils Absolute Auto 0.1 X10*3/uL (0.0-0.4); Eosinophils Percent Auto 1.5 % (0-4); Hematocrit 45.1 % (42.0-52.0); Hemoglobin 15.5 g/dl (14.0-18.0); Imm Gran Abs Auto 0.02 X10*3/uL (0.00-0.03); Imm Gran Pct Auto 0.4 % (0.0-0.4); Lymphocytes Absolute Auto 1.8 X10*3/uL (1.2-4.9); Mean Corpuscular HGB Conc 34.4 g/dl (31.0-36.0); Mean Corpuscular Hemoglobin 30.8 pg (27.0-33.0); Mean Corpuscular Volume 89.5 fL (80.0-98.0); Mean Platelet Volume 9.6 fL (9.4-12.4); Monocytes Absolute Auto 0.5 X10*3/uL (0.1-1.2); Monocytes Percent Auto 9.5 % (2-11); Neutrophils Absolute Auto 2.8 x10*3/uL (2.0-8.3); Neutrophils Percent Auto 53.7 % (45-73); Platelet Count 183 X10*3/uL (160-400); Red Blood Count 5.04 X10*6/uL (4.60-5.80); Red Cell Distribution Width 13.5 % (11.0-16.0); White Blood Count 5.3 X10*3/uL (4.8-10.8)
[2022-12-24 11:28] LABS: Appearance Urine Clear; Color Urine Yellow; Glucose Urine UA Negative (Negative); Leukocyte Esterase Urine Negative (Negative); Nitrite Urine Negative (Negative); PH 6.5 (5.0-9.0); Urine Blood Negative (Negative); Urine Ketones Negative (Negative); Urine Protein Negative (Neg-Trace)
[2022-12-24 12:10] LABS: Prostate Specific Antigen Scr 1.43 ng/mL (<0.05-4.0)
[2022-12-24 12:14] LABS: Alanine Aminotransferase 36 U/L (0-40); Albumin Level 4.2 g/dL (3.5-5.0); Alkaline Phosphatase 54 U/L (39-117); Anion Gap 12 (12-20); Aspartate Amino Transferase 23 U/L (5-37); Bilirubin Total 0.5 mg/dL (0.0-1.0); Blood Urea Nitrogen 13 mg/dL (9-16); Calcium 9.4 mg/dL (8.4-10.2); Carbon Dioxide 23 mmol/L (22-29); Chloride 108 mmol/L (96-108); Cholesterol 217 mg/dL (<200); Estimated Glomerular Filt Rate > 60; Glucose Fasting 110 mg/dL (60-99); HDL Cholesterol 44 mg/dL (>40); LDL Cholesterol Calculated 133 mg/dL (<100); Potassium 4.1 mmol/L (3.3-5.1); Sodium 139 mmol/L (135-145); TSH reflex Free T4 0.66 uIU/mL (0.32-4.0); Total Protein 6.9 g/dL (6.5-8.0); Triglycerides 200 mg/dL (<150)
[2022-12-24 12:21] LABS: Creatinine Urine 62.63 mg/dL; Microalbumin Urine < 5.0 mg/L
== END 2022-12-24 08:21 | disposition home or self-care (01) ==
LOC: HO.WFDLDS 08:20
PROVIDERS: Visit Provider Family Medicine
DX: Z00.00 Encounter for general adult medical examination without abnormal findings (principal); I10 Essential (primary) hypertension; Z12.5 Encounter for screening for malignant neoplasm of prostate
CPT/HCPCS: 36415; 80053; 80061; 81003; 82043; 82570; 84153; 84443; 85025

== ENCOUNTER 2023-01-16 07:58 | Outpatient (AMB) | payer MEDICARE, SELFPAY ==
[2023-01-16 08:06] VITALS: BP 120/82; PULSE 68; BMI 34.3
--- NOTE | 2023-01-16 08:06 | MHC.OFFVIS ---
Intake Vital Signs 01/16/23 08:06 Height 5 ft 8 in Weight 225 lb 4.999 oz BMI 34.3 BP 120/82 Blood Pressure Location Lt brachial Position Sitting Pulse 68 Intake Visit Reasons: f/up stress Allergies sildenafil [Viagra] Adverse Reaction (Unknown, Verified 01/16/23 08:08) ineffective Medication List - Last Reconciled 01/16/23 by Valeria More, SCIENTIFIC RESEARCH ASSOCIATE-C albuterol sulfate 90 mcg/actuation 1 puff inhalation QID apixaban (Eliquis) 5 mg PO BID dronedarone (Multaq) 400 mg PO BID HPI f/up stress HPI Details Parrish is a 67-year-old male with past medical history of obesity, mild asthma who was recently evaluated for heart palpitations with Holter monitor showing paroxysmal atrial fibrillation.? He was ordered to start on diltiazem and Eliquis.? Continue to have episodes and Multaq was added. He stopped Diltiazem due to side effects. On last visit a stress test and sleep study were ordered. Today he reports that he has been doing well overall. He will notice some heart palpitations at times that last a few hours then resolved. He has some fatigue when he has the heart palpitations however no other symptoms. He states his asthma has been mostly controlled. He has only occasional shortness of breath. No chest discomfort at rest or with activity. No lightheadedness, presyncope, syncope, PND, orthopnea or edema. No bleeding issues with Eliquis. Taking meds as directed. Asking about ablation. [facility] Medical History Arthritis of right acromioclavicular joint Asthma, mild intermittent, well-controlled Surgical History History of fusion of cervical spine History of repair of laceration History of carpal tunnel release Family History Father Dementia Mother CHF (congestive heart failure) Hypertension Brother Afib Son In good health Daughter In good health Daughter In good health Sister No problems noted. Social History Household Members: Spouse Housing: House Alcohol intake: current Alcohol intake frequency: 0-2 drinks per day Alcohol type: beer Patient Tobacco Use Status: Former Tobacco user Years Smoked: 15 e-Cigarette/Vaping Use: Never Used Second Hand Smoke Exposure: No service: No Current occupational status: retired Current occupational exposures/hazards: No Cognitive needs: No Hearing needs: No Vision needs: Yes (wears glasses) Review of Systems Const All systems reviewed & are unremarkable except as noted in HPI and below ENT Denies dizziness Card Details: Heart palpitations Denies chest pain, Denies chest pain at rest, Denies chest pain with activity, Denies rapid heart rate, Denies pedal edema, Denies edema, Denies leg edema, Denies lightheadedness, Denies palpitations, Denies dyspnea, Denies dyspnea on exertion and Denies orthopnea Resp Denies cough, Denies dyspnea and Denies dyspnea on exertion GI Denies hematochezia and Denies change in stool character Musc Denies abnormal gait, Reports limited range of motion, Reports muscle cramps, Denies muscle weakness, Denies numbness, Denies radiating pain into limb, Denies stiffness and Denies tingling Neuro Denies abnormal gait, Denies dizziness, Denies numbness and Denies tingling Endo Denies palpitations Physical Exam Vital Signs: Last Vital Signs Pulse 68 01/16/23 08:06 BP 120/82 01/16/23 08:06 BMI result Body Mass Index 34.3 Const General: cooperative, healthy appearing, comfortable and no acute distress Orientation/consciousness: patient oriented x3 Neck Neck: Yes normal visual inspection Resp Effort & Inspection: normal respiratory effort Auscultation: clear to auscultation bilaterally, no crackles, no rales, no rhonchi and no wheezes Cardio Jugular venous distension: no JVD Rate: regular rate Rhythm: regular rhythm Heart sounds: S1 normal heart sound present, S2 normal heart sound present, no murmurs and no rubs Neuro General: patient oriented x3 Extrem General: Yes normal to inspection, No no pedal edema and No calf tenderness Psych Appearance: grossly normal Mental Status: mental status grossly normal Speech and movement: Normal speech and movement present Office Procedures EKG Details: Today, read by me, normal sinus rhythm, no acute ST or T-wave abnormalities, QTC 429 milliseconds, rate 68 [id number], Complete Assessment & Plan Assessment & Plan (1) Atrial fibrillation with RVR: Code(s): I48.91 - Unspecified atrial fibrillation Plan: Newer finding of paroxysmal atrial fibrillation in patient with reports of heart palpitations. Holter monitor done on 08/26/2022 for 5 days showed baseline rhythm sinus with average heart rate 74, intermittent episodes of paroxysmal atrial fibrillation with burden of 13.2%, longest episode nearly 16 hours with fastest heart rate 200 beats per minute. Echocardiogram done 08/26/2022 showed EF 55-60%, mild aortic regurgitation, ascending aorta 3.7 cm. When Holter report was reviewed patient was notified and instructed to start on diltiazem CD 120 mg daily as well as Eliquis 5 mg b.i.d.. Multaq was then added for breakthrough heart palpitations. He stopped diltiazem 2 to reported side effects of pain going up his neck and into his head. Today he reports that he has been getting heart palpitations at times, a proximally once every 1-2 weeks lasting a few hours. He has some fatigue with this however no shortness of breath or chest discomfort. He is asking about ablation. Discussed option of AFib ablation and he prefers to wait until next visit to make a final decision. EKG done today showing normal sinus rhythm, QTC 429 milliseconds, rate 68. Nuclear stress test was done on 11/29/2022 with good exercise tolerance, no EKG changes of ischemia and normal myocardial perfusion imaging. A sleep study was done on 12/16/2022 which was negative for sleep apnea. At this time will continue on Multaq for rhythm control. Will continue Eliquis for anticoagulation. Office EKG in 3 months. Cardiology follow up an EKG in 6 months. He may consider referral for ablation next visit. Emergency care if needed for concerning/sustained palpitations. Discussed avoidance of alcohol (drinking 1-2 beers few times a weekly), caffeine reduction, rest quietly when he feels he is in AFib. (2) Palpitations: Code(s): R00.2 - Palpitations Plan: As above (3) Shortness of breath: Code(s): R06.02 - Shortness of breath Plan: Reports of shortness of breath with activity which he relates to his asthma and drywall dust exposure. Lungs are clear on examination. Echocardiogram as above. Nuclear stress test normal. (4) Paroxysmal A-fib: Code(s): I48.0 - Paroxysmal atrial fibrillation Plan: As above Patient Instructions: Time spent with chart review, documentation, interview and assessment Coding Level of Care Code Est Pt Level 3 (18622) Diagnoses Atrial fibrillation with RVR I48.91 Palpitations R00.2 Shortness of breath R06.02 Paroxysmal A-fib I48.0 CPT Codes EKG - CPT: [id number]-[id number], Complete ([id number]) Time Spent (min) 24
== END 2023-01-16 08:40 | disposition home or self-care (01) ==
PROVIDERS: PCP Family Medicine; Visit Provider Nurse Practitioner Family
DX: I48.91 Unspecified atrial fibrillation (principal); R00.2 Palpitations; R06.02 Shortness of breath; I48.0 Paroxysmal atrial fibrillation
CPT/HCPCS: 93010; 99213

== ENCOUNTER → 2023-01-16 07:58 | Outpatient (BNVA) | payer MEDICARE, SELFPAY | PROVIDERS: PCP Family Medicine; Visit Provider Nurse Practitioner Family | DX: R00.2 Palpitations (principal); R06.02 Shortness of breath; I48.0 Paroxysmal atrial fibrillation; J45.20 Mild intermittent asthma, uncomplicated; Z87.891 Personal history of nicotine dependence | CPT/HCPCS: 93005; 99212 ==

== ENCOUNTER 2023-01-29 16:44 | Outpatient (AMB) | payer MEDICARE, SELFPAY ==
--- NOTE | 2023-01-29 16:39 | A.OFFPC_ITS ---
Intake Visit Reasons: follow up CPE Lab Allergies sildenafil [Viagra] Adverse Reaction (Unknown, Verified 01/29/23 16:40) ineffective Tobacco use date assessed: 01/29/23 Fall risk assessment: No Falls in past year Last assessed Fall Risk: 01/29/23 HPI follow up CPE Lab HPI Details 67 y/o male presents to f/u CPE-labs via telemedicine. Labs were drawn 12/24/22. Reviewed labs with pt. Elevated fasting glucose of 110. He notes he felt like he had a good fast. Triglycerides 200. TC 217. LDL improved from 153 to 133. HDL 44. [facility] Medical History (Updated 01/29/23 @ 16:47 by Satish Kapoor) Afib Arthritis of right acromioclavicular joint Asthma, mild intermittent, well-controlled Surgical History History of fusion of cervical spine History of repair of laceration History of carpal tunnel release Family History Father Dementia Mother CHF (congestive heart failure) Hypertension Brother Afib Son In good health Daughter In good health Daughter In good health Sister No problems noted. Social History Household Members: Spouse Housing: House Alcohol intake: current Alcohol intake frequency: 0-2 drinks per day Alcohol type: beer Patient Tobacco Use Status: Former Tobacco user Years Smoked: 15 e-Cigarette/Vaping Use: Never Used Second Hand Smoke Exposure: No service: No Current occupational status: retired Current occupational exposures/hazards: No Cognitive needs: No Hearing needs: No Vision needs: Yes (wears glasses) Questionnaire Thrive Questionnaire Date Thrive assessed: 12/17/22 JOSÉ MIGUEL-7 AMB Questionnaire JOSÉ MIGUEL-7 Date JOSÉ MIGUEL - 7 assessed: 12/17/22 Source: Developed by Drs. Delano Thibodeaux, Toma Del Rosario, Jon Pan and colleagues, with an educational ronn from [employer]. Physical exam (Primary Care) Tobacco/Smoking Status: Tobacco use Status Tobacco use date assessed 01/29/23 01/29/23 16:43 Patient Tobacco Use Status Former Tobacco user 01/29/23 16:43 e-Cigarette/Vaping Use Never Used 01/29/23 16:43 Thrive Assessment: Date of Thrive Assessment Date Thrive assessed 12/17/22 01/29/23 16:43 Telehealth Telehealth Minutes spent on Phone/Video with Pt.: 8 Assessment and Plan Assessment & Plan (1) Elevated fasting glucose: Code(s): R73.01 - Impaired fasting glucose Plan: Mildly?elevated?fasting?blood?sugar Will?repeat?fasting?blood?sugar?along?with?an?A1c?in?February. Encouraged?him?to?ensure?he?has?a?good?10+?our?fast? (2) Hyperlipidemia: Code(s): E78.5 - Hyperlipidemia, unspecified Plan: LDL?cholesterol?is?a?little?high Encouraged?a?diet?lower?in?saturated?fats?and?cholesterol We?can?follow-up?on?this?at?a?subsequent?visit Orders: Orders Hemoglobin A1c Today R73.01 - Impaired fasting glucose Basic Metabolic Panel Fasting Today R73.01 - Impaired fasting glucose Coding Level of Care Code Tele Est Pt Level 2 (41515) Diagnoses Elevated fasting glucose R73.01 Hyperlipidemia E78.5
== END 2023-01-29 17:00 | disposition home or self-care (01) ==
LOC: HO.HMGFM 16:44
PROVIDERS: PCP Family Medicine; Visit Provider Family Medicine
DX: R73.01 Impaired fasting glucose (principal); E78.5 Hyperlipidemia, unspecified
CPT/HCPCS: 99212

== ENCOUNTER 2023-03-11 08:45 | Outpatient (REF) | payer MEDICARE, SELFPAY ==
[2023-03-11 12:10] LABS: Estimated Average Glucose 108 mg/dL; Hemoglobin A1c % 5.4 % (<6.0)
[2023-03-11 12:28] LABS: Anion Gap 12 (12-20); Blood Urea Nitrogen 18 mg/dL (9-16); Calcium 9.5 mg/dL (8.4-10.2); Carbon Dioxide 27 mmol/L (22-29); Chloride 106 mmol/L (96-108); Estimated Glomerular Filt Rate > 60; Glucose Fasting 94 mg/dL (60-99); Potassium 4.5 mmol/L (3.3-5.1); Sodium 140 mmol/L (135-145)
== END 2023-03-11 08:46 | disposition home or self-care (01) ==
LOC: HO.WFDLDS 08:45
PROVIDERS: Visit Provider Family Medicine
DX: R73.01 Impaired fasting glucose (principal)
CPT/HCPCS: 36415; 80048; 83036

== ENCOUNTER → 2023-07-17 07:50 | Outpatient (BNVA) | payer MEDICARE, SELFPAY | PROVIDERS: PCP Family Medicine; Visit Provider Nurse Practitioner Family ==

== ENCOUNTER 2024-01-17 10:43 | Inpatient (IN) | payer MEDICARE, SELFPAY ==
[2024-01-17] VITALS (9 sets, daily range): BP systolic 111–167; BP diastolic 78–109; PULSE 83–156; RESP 16–20; TEMP 36.1–37; O2SAT 95–97; BMI 35.5
--- NOTE | ~2024-01-17 | XR_ITS ---
EXAMINATION: XR CHEST CLINICAL INFORMATION: Dyspnea. COMPARISON: Chest radiograph dated 12/09/2018. TECHNIQUE: Frontal view of the chest was obtained. FINDINGS: Mild cardiomegaly, new when compared to the prior examination. No pleural effusion or pneumothorax. No airspace consolidation. XR/XR chest 1V IMPRESSION: Mild cardiomegaly, new when compared to the prior examination. Electronically signed by: Tam Adam MD 01/17/2024 12:01 PM [facility]
--- NOTE | ~2024-01-17 | CT_ITS ---
EXAMINATION: IV contrast enhanced CT angiography of the head and neck; delayed IV contrast-enhanced CT the head CLINICAL INFORMATION: Facial droop in rapid A. fib COMPARISON: Unenhanced CT of the head 01/17/2024 TECHNIQUE: IV contrast enhanced CT angiography of the head and neck with multiple 3-D reformatted angiographic thick section MIPS images processed on the technologist workstation under concurrent supervision; delayed IV contrast-enhanced CT the head. Vascular stenoses are made with reference to the NASCET criteria less otherwise specified. This CT examination was performed using dose optimization techniques as appropriate, variously including the following: *Automated exposure control *Adjustment of mA and/or kV according to patient size (this includes techniques or standardized protocols for targeted exams where dose is matched to indication/reason for exam; i.e. extremities or head) *Use of iterative reconstruction technique Intravenous Contrast: Omnipaque 350 70 mL DLP: 1555 mGy-cm FINDINGS: IV contrast enhanced CT of the head: No intracranial hemorrhage, tumors or acute infarcts identified. Mild diffuse commensurate prominence of ventricles and sulci are within expected limits of normal anatomic variation. No focal parenchymal lesions of the brain or abnormal extra-axial fluid collections. Normal appearance of the orbits and globes. No extracranial soft tissue inflammatory changes. Opacification of the small number left mastoid air cells towards the mastoid tip are noted. Elsewhere within the mastoid air cells, paranasal sinuses and middle ear cavities, no significant opacification identified. Serial profile interbody devices are noted at C5-C6 and C6-C7. In the body osseous bridging is present at C5-C6. Interbody bridging is not visualized at C6-C7. Multilevel facet and endplate hypertrophic changes are present including a moderate posterior broad-based disc-osteophyte complex at C4-C5. Subligamentous disc ossification is present focally at C3-C4 and may represent a chronic disc extrusion. CT angiography neck: Conventional branching anatomy of the great vessels in relation to the transverse aorta is noted. Minimal scattered calcific plaque is noted in the transverse aorta. Minimal nonocclusive eccentric calcific and noncalcific plaque without ulceration is noted in the left carotid bulb. The right carotid bulb is patent. The vertebral arteries are codominant. No stenoses, occlusions or dissections are noted in the cervical components of the carotid and vertebral artery systems. CT angiography head: origin of the left posterior cerebral artery is present. Minimal nonocclusive scattered calcific plaques are present in the cavernous portions of the internal carotid arteries. An anterior communicating artery is present. No intracranial occlusions, stenoses or aneurysms are noted. Within the inside visualized pulmonary arterial system, no intraluminal filling defects are noted to suggest the presence of pulmonary emboli. The lung apices are clear. Normal appearance of the thyroid. No cervical lymphadenopathy. CT/CT angio head neck STROKE IMPRESSION: IV contrast enhanced CT the head: *No acute intracranial abnormalities. No acute infarcts or intracranial hemorrhage. CT angiography head: *No intracranial large vessel occlusions. *Minimal scattered nonocclusive calcific atherosclerosis of the cavernous portions of the internal carotid arteries. CT angiography neck: *No occlusions or stenoses of the cervical carotid and vertebral artery systems. *Nonocclusive eccentric mixed calcific and noncalcific nonulcerative plaque within the left carotid bulb. Patent right carotid bulb. *Multilevel chronic spondylosis of the cervical spine. Status post C4-C5 interbody fusion. Status post C5-C6 interbody device placement. No gross interbody osseous bridging at C5-C6. Electronically signed by: Nate Bain MD 01/17/2024 11:51 AM EST
--- NOTE | ~2024-01-17 | MR_ITS ---
EXAMINATION: MR BRAIN WITHOUT CONTRAST CLINICAL INFORMATION: Facial droop. Question CVA.] Atrial fibrillation. COMPARISON: CT head dated January 17, 2024. CTA head and neck dated January 17, 2024. TECHNIQUE: MRI of the brain was obtained using routine sequences without contrast. FINDINGS: There is a small focus of abnormal restricted diffusion within the right insular cortex seen best on image #15, series #7. This same area of abnormal restricted diffusion demonstrates mild increased signal on both T2 and FLAIR sequences and is consistent with a subacute infarct. There is a punctate focus of abnormal restricted diffusion and the linear focus of abnormal restricted diffusion within the right boswell radiata. These areas of abnormal restricted diffusion are difficult to appreciate on the T2 and FLAIR sequences but are also consistent with subacute infarcts. These are best illustrated on image #18, series #7. There is no acute intracranial hemorrhage. There is minimal microvascular ischemic change. There is no midline shift or mass effect. There is no extra-axial fluid collection. The ventricles are normal in size. The flow voids at the base of the brain are intact. Midline structures are normal in appearance. The cerebellar tonsils are normally positioned. The orbits are symmetric and within normal limits. There is minimal right maxillary sinus circumferential mucosal thickening. There is scattered ethmoid air cell mucosal disease. There is a moderate to large left mastoid air cell effusion. MR/MR head/brain wo con IMPRESSION: There is a small subacute infarct within the right insular cortex. There are small subacute infarcts within the right boswell radiata. This critical result was discussed with Corey BILLINGS at 9:23 PM on 01/17/2024 and it was ascertained that the content and urgency of the report was understood at the time of direct communication. Electronically signed by: Partha Louis DO 01/17/2024 09:23 PM [facility]
--- NOTE | ~2024-01-17 | CT_ITS ---
EXAMINATION: CT HEAD WITHOUT CONTRAST (STROKE PROTOCOL) CLINICAL INFORMATION: Stroke protocol. Facial drooping. Rapid atrial fibrillation. COMPARISON: None available. TECHNIQUE: Contiguous axial imaging was performed from the skull base to vertex without intravenous administration of contrast. This CT examination was performed using dose optimization techniques as appropriate, variously including the following: *Automated exposure control *Adjustment of mA and/or kV according to patient size (this includes techniques or standardized protocols for targeted exams where dose is matched to indication/reason for exam; i.e. extremities or head) *Use of iterative reconstruction technique DLP: 721 mGy-cm FINDINGS: No acute intracranial hemorrhage. No mass effect or midline shift. No parenchymal lesion. The ferrell-white differentiation is maintained. No extra-axial fluid collection. The ventricles and sulci are unremarkable. The basal cisterns are patent. The calvarium is intact. The visualized paranasal sinuses and mastoid air cells are clear. CT/CT head for STROKE IMPRESSION: No acute intracranial hemorrhage or mass effect. This critical result was discussed with Dr. Sung at 11:25 AM on 01/17/2024. It was ascertained that the content and urgency of the report was understood at the time of direct communication. Electronically signed by: Tam Adam MD 01/17/2024 11:27 AM [facility]
--- NOTE | 2024-01-17 10:52 | ED_ITS ---
HPI - SOB/Dyspnea General Chief Complaint: Dyspnea Stated Complaint: diff breathing Time Seen by Provider: 01/17/24 10:50 Source: patient and old records reviewed Mode of arrival: ambulatory Limitations: no limitations History of Present Illness ED Provider: JOSHUA CAMPOS Narrative: 68 yo male with PMH afib, HLD, reactive airway disease, BPH who took himself off all medications 6 months ago including afib meds and eliquis only takes his xopenex inhaler who notes worsening breathing over 3 days but no cough, fevers, swelling, chest pain. Noted this AM they think around 830am (he woke at 5am) L sided lower facial droop and drooling. He denies headache, prior bleeding, no other weakness or numbness. No difficulty speaking or swallowing. noted the droop at the kitchen table when he mentioned it. confirms he drank coffe at 645am but then stated it was 745am and was normal no drooling or having a hard time keeping liquid in his mouth he then noted around 830pm things on the left lower corner of the mouth seemed different - in between that time did not drink anything else or look in the mirror. The never saw him or noted till he asked her. Last known well 745am. MD elicited complaint: shortness of breath (facial droop) Pertinent past history: other (afib) Onset (ago): hour(s) (8/830am) Context: medication noncompliance Timing: constant Severity: moderate Exacerbating factors: lying flat, exertion and movement Relieving factors: rest Known history of: other (asthma and afib) Associated symptoms: palpitations and other (L facial droop) Treatment prior to arrival: none Related Data Home Medications ?Medication ?Instructions ?Recorded ?Confirmed albuterol sulfate 90 mcg/actuation 1 puff inhalation QID 07/11/22 01/16/23 aerosol inhaler Previous Rx's ?Medication ?Instructions ?Recorded apixaban 5 mg tablet (Eliquis) 5 mg PO BID 90 days #180 tabs 01/17/23 dronedarone 400 mg tablet (Multaq) 400 mg PO BID 90 days #180 tabs 01/17/23 levalbuterol tartrate 45 2 puff inhalation Q4-6H PRN 10/21/23 mcg/actuation aerosol inhaler shortness of breath 30 days #15 grams Allergies Allergy/AdvReac Type Severity Reaction Status Date / Time No Known Allergies Allergy Verified 01/17/24 10:48 Review of Systems 2 Review of Systems: Constitutional : No Fever, No Chills ENT/Mouth : No sore throat, No Rhinorrhea, No Swallowing Difficulty Eyes: No Eye Pain, No Swelling, No Redness Cardiovascular : No Chest Pain, positive SOB, No Orthopnea, no Edema, pos palpitations Respiratory : No Cough, No Sputum, No Wheezing, positive dyspnea Gastrointestinal : No Nausea, No Vomiting, No Diarrhea, No abdominal Pain, No Hematochezia, No Melena Genitourinary : No Dysuria, No Urinary Frequency, No Hematuria Musculoskeletal : No joint pain, No Myalgias Skin : No Skin Lesions, No rash Neuro : No Weakness, No Numbness, No Dizziness, No Headache Psych : No Anxiety/Panic, No Depression All other systems reviewed and are negative [facility] [place] Past Medical History Attestation statement: The following information was validated with the patient. Medical History Afib Arthritis of right acromioclavicular joint Asthma, mild intermittent, well-controlled Surgical History History of fusion of cervical spine History of repair of laceration History of carpal tunnel release Family History Family History Father Dementia Mother CHF (congestive heart failure) Hypertension Brother Afib Son In good health Daughter In good health Daughter In good health Sister No problems noted. Social History Social History Household Members: Spouse Housing: House Alcohol intake: current Alcohol intake frequency: 0-2 drinks per day Alcohol type: beer Patient Tobacco Use Status: Former Tobacco user Years Smoked: 15 Smoked in Last 30 Days: No e-Cigarette/Vaping Use: Never Used Second Hand Smoke Exposure: No Use of substances other than those prescribed or required for medical reasons: No Advance Directives: No Advance Directives Information Provided: Yes Do you have a plan to hurt others: No Plan service: No Current occupational status: retired Current occupational exposures/hazards: No Cognitive needs: No Hearing needs: No Vision needs: Yes (wears glasses) Physical Exam 2 Vital Signs: Vital Signs: Last Vital Signs Temp 97.8 F 01/17/24 11:00 Pulse 137 H 01/17/24 11:06 Resp 18 01/17/24 11:00 BP 135/109 H 01/17/24 11:06 Pulse Ox 96 01/17/24 11:00 O2 Del Method Room Air 01/17/24 11:00 BMI result Body Mass Index 35.5 Appearance: Alert. Oriented X3. No acute distress. Eyes: Pupils equal, round and reactive to light. ENT: Pharynx normal. Neck: Normal inspection. Neck supple. CVS: irregular tachycardic heart rate and rhythm. Pulses normal. Respiratory: No respiratory distress. Breath sounds normal. Abdomen: Soft and non-tender. Skin: Skin warm and dry. Normal skin color. Normal skin turgor. Extremities: No lower extremity edema. No calf ttp Neuro: Oriented X 3. mild L lower facial droop. No sensory deficit. NIH Stroke Scale Internal: Initial- Upon Arrival Level of Consciousness: Alert Level of Consciousness Questions: Answers both questions correctly Level of Consciousness Commands: Performs both tasks correctly Best Gaze: Normal Visual: No visual loss Facial Palsy: Minor paralyis Motor Arm (Right): No drift Motor Arm (Left): No drift Motor Leg (Right): No drift Motor Leg (Left): No drift Limb Ataxia: Absent Sensory: Normal Best Language: No aphasia Dysarthia: Normal Extinction and Inattention: No abnormality Score: 1 Course Course Course Narrative: [place] to [place] [id number] Reevaluation(s) Reevaluation #1: symptoms stable still NIH 1 no change in mild droop no other symptoms HR down to 90s after IV dilt RN aware if neurology wants TNK he is 25mg Reevaluation #2: symptoms better with rate control symptoms on and off for months doubt VTE suspect afib with rvr Medications Administered Discontinued Medications Generic Name Dose Route Start Last Admin Trade Name Efraq PRN Reason Stop Dose Admin Diltiazem HCl 10 mg 01/17/24 11:01 01/17/24 11:06 Diltiazem Hcl 50 Mg/10 Ml Vial IVPUSH 01/17/24 11:02 10 mg STAT STA Administration Iohexol 70 ml 01/17/24 11:28 01/17/24 11:28 Iohexol 350 Mg/Ml 100 Ml Infus..Btl IV 01/17/24 11:29 70 ml ONCE ONE Administration Medical Decision Making Medical Decision Making [facility] Narrative: 68 yo male with PMH afib, HLD, reactive airway disease, BPH here with 2 complaints has dyspnea on and off for 3 days but much worse and then intermittent elevated HR though he has a hard time telling he is in afib. He took himself off all of his medications including eliquis 6 months ago only takes xopenex inhaler now. This AM around 830 he noted L facial droop and drooling when trying to eat breakfast. He went to bed normal 830pm. He woke up at 5am and denies these symptoms were present but did not look in the mirror or drink anything. He has isolated lower mild facial droop and NIH score is 1 - suspect afib with CVA drank coffee at 745am and was fine (he initially stated 645am so the timing has changed a few times). Upon assessment and line access patient sent over for stroke protocol IV dilt 10mg ordered labs has no contraindications to TNK if needed per discussion last known well 745am his score is so low and I only note left lower facial droop given the changes of last known well and such a low score with NIH 1 which is NOT debilitating spoke to [place] agrees with holding TNK patient and his aware and are in agreement given the timeline the mild score to hold TNK they are very comfortable with this Differential Diagnosis Differential Diagnoses: The differential diagnosis associated with the presentation includes afib, stroke, CHF, viral syndrome, med noncompliance Admission/Observation Consideration of admission/observation: Escalation of care including admission/observation considered Consult Healthcare Provider Management of the patient was discussed with: Perinatal Educator Lab Data [facility] Lab Attestation statement: I reviewed the patient's lab results. 01/17/24 11:08 01/17/24 11:08 Labs: Lab Results 01/17/24 01/17/24 Range/Units 11:08 11:49 WBC 7.1 (4.8-10.8) X10*3/uL RBC 5.45 (4.60-5.80) X10*6/uL Hgb 17.0 (14.0-18.0) g/dl Hct 47.7 (42.0-52.0) % MCV 87.5 (80.0-98.0) fL MCH 31.2 (27.0-33.0) pg MCHC 35.6 (31.0-36.0) g/dl RDW 13.2 (11.0-16.0) % Plt Count 184 (160-400) X10*3/uL MPV 9.0 L (9.4-12.4) fL Immature Gran % (Auto) 0.6 H (0.0-0.4) % Neut % (Auto) 53.5 (45-73) % Lymph % (Auto) 32.9 (20-40) % Cedar % (Auto) 10.6 (2-11) % Eos % (Auto) 1.6 (0-4) % Baso % (Auto) 0.8 (0-2) % Lymph # (Auto) 2.3 (1.2-4.9) X10*3/uL Cedar # (Auto) 0.8 (0.1-1.2) X10*3/uL Eos # (Auto) 0.1 (0.0-0.4) X10*3/uL Baso # (Auto) 0.1 (0.0-0.2) X10*3/uL Abs Immat Gran (auto) 0.04 H (0.00-0.03) X10*3/uL Absolute Neuts (auto) 3.8 (2.0-8.3) x10*3/uL Absolute Nucleated RBC 0.000 (0.0-0.012) X10*3/uL Nucleated RBC % (auto) 0.0 (0.0-0.2) /100WBC PT 11.4 (10.9-12.4) SEC INR 1.0 (0.9-1.1) APTT 29.8 (26.0-36.8) SEC VBG pH 7.39 (7.32-7.43) VBG pCO2 62 mmHg VBG pO2 44 mmHg VBG HCO3 38 H (22-26) mmol/L VBG O2 Saturation 74.0 % VBG Base Excess 10.7 mmol/L Sodium 142 (135-145) mmol/L Potassium 4.4 (3.3-5.1) mmol/L Chloride 109 H (96-108) mmol/L Carbon Dioxide 22 (22-29) mmol/L Anion Gap 15 (12-20) BUN 21 H (9-16) mg/dL Creatinine 1.25 (0.5-1.4) mg/dL Estim Creat Clear Calc 68.6 Estimated GFR 58 Random Glucose 116 H (60-115) mg/dL Calcium 9.7 (8.4-10.2) mg/dL Magnesium 2.4 (1.6-2.6) mg/dL Total Bilirubin 0.6 (0.0-1.0) mg/dL Direct Bilirubin 0.2 (0.0-0.5) mg/dL AST 36 (5-37) U/L ALT 56 H (0-40) U/L Alkaline Phosphatase 51 (39-117) U/L Troponin I High Sens < 2.7 (<3.5-35.0) ng/L B-Natriuretic Peptide 174 H (<100) pg/mL Total Protein 7.3 (6.5-8.0) g/dL Albumin 4.5 (3.5-5.0) g/dL Independent Interpretation I performed an independent interpretation of an: EKG, Plain X-Ray and CT Scan Interpretation: Rate: 120 Rhythm: afib with RVR [place]: normal Normal QRS complex. ST T wave : no KEN qTC: 460 prior studies: in afib with RVR The study has been interpreted contemporaneously by me. . Radiology Impression Discussion of test interpretation with radiology: I have reviewed the radiologist's reading. Radiologist Impression: CT head normal 1126am Independent Historian Clinical information obtained from an independent historian. History obtained from or confirmed by: Spouse External Record Review External record reviewed: Outpatient record Critical Care Time Critical Care Time Critical Care Time: Yes Total Critical Care Time: 45 Attestation: stroke protocol, IV dilt for afib with RVR, consult, admission, discussion with patinet and family, reassessments I attest to this time spent taking care of the patient Discharge Plan Discharge Clinical Impression: Atrial fibrillation with rapid ventricular response, Acute dyspnea, Facial droop Patient Disposition: Admitted As Inpatient Print Language: [place] Citizen
[2024-01-17] MEDS: dilTIAZem HCL 50 MG/10 ML VIAL 10 MG IVPUSH (11:06)
--- NOTE | 2024-01-17 11:11 | ECG_ITS ---
Test Reason : sob Blood Pressure : / mmHG Vent. Rate : 120 BPM Atrial Rate : 000 BPM P-R Int : 000 ms QRS Dur : 102 ms QT Int : 326 ms P-R-T Axes : 000 020 023 degrees QTc Int : 460 ms Atrial fibrillation with rapid ventricular response Abnormal ECG When compared with ECG of 29-APR-2022 09:37, Atrial fibrillation has replaced Sinus rhythm Vent. rate has increased BY 52 BPM Referred By: Hermelinda Sung Electronically Signed By:SHYLA ARRIAZA
[2024-01-17 11:13] LABS: MANUAL DIFF FLAG NO
[2024-01-17 11:14] LABS: Basophils Absolute Auto 0.1 X10*3/uL (0.0-0.2); Basophils Percent Auto 0.8 % (0-2); Eosinophils Absolute Auto 0.1 X10*3/uL (0.0-0.4); Eosinophils Percent Auto 1.6 % (0-4); Hematocrit 47.7 % (42.0-52.0); Imm Gran Abs Auto 0.04 X10*3/uL (0.00-0.03); Imm Gran Pct Auto 0.6 % (0.0-0.4); Lymphocytes Absolute Auto 2.3 X10*3/uL (1.2-4.9); Lymphocytes Percent Auto 32.9 % (20-40); Mean Corpuscular HGB Conc 35.6 g/dl (31.0-36.0); Mean Corpuscular Hemoglobin 31.2 pg (27.0-33.0); Mean Corpuscular Volume 87.5 fL (80.0-98.0); Monocytes Absolute Auto 0.8 X10*3/uL (0.1-1.2); Monocytes Percent Auto 10.6 % (2-11); Neutrophils Absolute Auto 3.8 x10*3/uL (2.0-8.3); Neutrophils Percent Auto 53.5 % (45-73); Platelet Count 184 X10*3/uL (160-400); Red Blood Count 5.45 X10*6/uL (4.60-5.80); Red Cell Distribution Width 13.2 % (11.0-16.0); White Blood Count 7.1 X10*3/uL (4.8-10.8)
[2024-01-17 11:23] LABS: Prothrombin Time 11.4 SEC (10.9-12.4)
[2024-01-17 11:25] LABS: Partial Thromboplastin Time 29.8 SEC (26.0-36.8)
[2024-01-17] MEDS: iohexoL 350 MG/ML 100 ML INFUS..BTL 70 ML IV (11:28)
--- NOTE | 2024-01-17 11:28 | PC.NURSE ---
Patient arrived from home with with reports of left sided facial droop, garbled speech, and drooling. Reports cough and sob. Patient in rapid afib. 20g placed in left ac , medicated per apr. Brought to CT scan. patient reports symptoms started around 8:30am, was okay around 6:45am when he was drinking his coffee
[2024-01-17 11:30] LABS: Alanine Aminotransferase 56 U/L (0-40); Albumin Level 4.5 g/dL (3.5-5.0); Alkaline Phosphatase 51 U/L (39-117); Anion Gap 15 (12-20); Aspartate Amino Transferase 36 U/L (5-37); Bilirubin Direct 0.2 mg/dL (0.0-0.5); Bilirubin Total 0.6 mg/dL (0.0-1.0); Blood Urea Nitrogen 21 mg/dL (9-16); Calcium 9.7 mg/dL (8.4-10.2); Carbon Dioxide 22 mmol/L (22-29); Chloride 109 mmol/L (96-108); Creatinine Clr Calc Pharmacy 68.6; Estimated Glomerular Filt Rate 58; Glucose Random 116 mg/dL (60-115); Magnesium 2.4 mg/dL (1.6-2.6); Potassium 4.4 mmol/L (3.3-5.1); Sodium 142 mmol/L (135-145); Total Protein 7.3 g/dL (6.5-8.0)
[2024-01-17 11:35] LABS: B Type Natriuretic Peptide 174 pg/mL (<100)
[2024-01-17 11:37] LABS: Troponin-I High Sensitivity < 2.7 ng/L (<3.5-35.0)
[2024-01-17 11:53] LABS: VBG Base Excess 10.7 mmol/L; VBG HCO3 38 mmol/L (22-26); VBG pCO2 62 mmHg; VBG pH 7.39 (7.32-7.43); VBG pO2 44 mmHg
[2024-01-17 11:55] LABS: Venous Blood Gas Refer to POC result
[2024-01-17 12:18] LABS: Estimated Average Glucose 117 mg/dL; Hemoglobin A1C 164.1524 umol/L; Hemoglobin A1c % 5.7 % (<6.0); Total Hemoglobin (HGBA1C) 4256.5833 umol/L
[2024-01-17] MEDS: Metoprolol Tartrate 25 MG TABLET PO ×3 (12:18→20:20)
[2024-01-17 12:20] LABS: Cholesterol 259 mg/dL (<200); HDL Cholesterol 48 mg/dL (>40); LDL Cholesterol Calculated 146 mg/dL (<100); Triglycerides 326 mg/dL (<150)
[2024-01-17] MEDS: Aspirin 81 MG TAB.CHEW PO (12:20)
[2024-01-17 12:33] LABS: Influenza A PCR NEGATIVE (Negative); Influenza B PCR NEGATIVE (Negative); Resp Syncy Virus RNA Qual PCR NEGATIVE (Negative); SARS COV2 PCR INHOUSE NEGATIVE (Negative)
--- NOTE | 2024-01-17 13:14 | PM.IMHP ---
History of Present Illness Date of Service: 01/17/24 Attending physician on admission: Yesi El Chief Complaint: Left facial droop Pt is a 68-year-old male with a PMH significant for?paroxysmal AFib no longer taking Eliquis or Multaq, HLD, and peripheral neuropathy who presents to the ED with?left-sided facial droop and drooling since earlier this morning. Patient reports has been experiencing shortness of breath for the past 1-2 months worse the past 2 days. Patient reports difficulty breathing and shortness of breath was so bad last night was having difficulty sleeping. Also experiencing a minor, sharp upper abdominal/lower chest pain. During breakfast this morning at around 8:30 noticed he was drooling food and drink out of the left side of his mouth. noted left-sided facial droop and some mumbling when patient pointed this out to her. Pt's timeline of last known well time unclear: reported to this provider last drink prior to breakfast was some water at 1:00 when he got up to go to the bathroom, but reported to ED clinician he drank coffee before breakfast at 7:45 without difficulty. Patient denies headache or acute vision changes. No difficulty word finding or fogginess in thinking. Denies new or worsening numbness or tingling in extremities. No hemiparesis. No difficulty grasping or holding onto objects. No chest pressure or palpitations. Patient stopped taking his home medications around 5-6 months ago, including Eliquis and Multaq for AFib. Patient reports he did not think that he needed them or that he had AFib. States every time he came to get an EKG it never showed atrial fibrillation. However, patient had Holter monitor in 08/2022 which found intermittent episodes of AFib with total burden of 13.2% with longest episode lasting 15 hours 53 minutes with fastest heart rate of 200 beats per minute. In the ED pt was tachycardic up to 156 and hypertensive up to 167/104. Labs were significant for ALT 56, BNP 1 784, lipid panel elevated at triglycerides 326, cholesterol 259, and LDL at 146. No leukocytosis. No significant electrolyte abnormalities. Stable H&H. CXR showed mild cardiomegaly, new when compared to prior from 2019. Tested negative for flu, RSV, COVID. CT of head negative for acute intracranial hemorrhage or mass effect. CTA of head found no acute intracranial large vessel occlusion, but showed minimal scattered nonocclusive calcific atherosclerosis of internal carotid arteries. CTA of neck showed no occlusions or stenosis of cervical carotid and vertebral artery systems, but did show nonocclusive mixed calcific and noncalcific non ulcerative plaque within left carotid bulb. Pt was treated with diltiazem 10 mg IV, metoprolol 25 p.o., and aspirin. ED contacted Neurology but given patient's low NIH score of 1, decided against giving TNK. Pt will be admitted to the hospital for treatment and further evaluation of left-sided facial droop concerning for CVA versus TIA and AFib with RVR secondary to medication noncompliance. Review of Systems Review of Systems: Negative except for that which is stated in the [facility] Medical History Afib Arthritis of right acromioclavicular joint Asthma, mild intermittent, well-controlled Family History Father Dementia Mother CHF (congestive heart failure) Hypertension Brother Afib Son In good health Daughter In good health Daughter In good health Sister No problems noted. Surgical History History of fusion of cervical spine History of repair of laceration History of carpal tunnel release Social History Household Members: Spouse Housing: House Alcohol intake: current Alcohol intake frequency: 0-2 drinks per day Alcohol type: beer Patient Tobacco Use Status: Former Tobacco user Years Smoked: 15 Smoked in Last 30 Days: No e-Cigarette/Vaping Use: Never Used Second Hand Smoke Exposure: No Use of substances other than those prescribed or required for medical reasons: No Advance Directives: No Advance Directives Information Provided: Yes Do you have a plan to hurt others: No Plan service: No Current occupational status: retired Current occupational exposures/hazards: No Cognitive needs: No Hearing needs: No Vision needs: Yes (wears glasses) Meds Allergies Allergy/AdvReac Type Severity Reaction Status Date / Time No Known Allergies Allergy Verified 01/17/24 10:48 Home Medications ?Medication ?Instructions ?Recorded ?Confirmed ?Last Taken ?Type cyanocobalamin (vitamin B-12) 1,000 mcg PO DAILY 01/17/24 01/17/24 Unknown History 1,000 mcg tablet levalbuterol tartrate 45 2 puff inhalation Q4H PRN 01/17/24 01/17/24 Unknown History mcg/actuation aerosol inhaler shortness of breath magnesium oxide 400 mg (241.3 mg 400 mg PO DAILY 01/17/24 01/17/24 Unknown History magnesium) tablet omega 8-hip-lxp-fish oil 300 1 cap PO DAILY 01/17/24 01/17/24 Unknown History mg-1,000 mg capsule,delayed release (Fish Oil) Physical Exam Vital Signs and Narrative: Vital Signs: Last Vital Signs Temp 97.8 F 01/17/24 11:00 Pulse 100 01/17/24 12:18 Resp 18 01/17/24 11:00 BP 119/81 01/17/24 12:18 Pulse Ox 96 01/17/24 11:00 O2 Del Method Room Air 01/17/24 11:00 BMI result Body Mass Index 35.5 General: AOx3, no acute distress Resp: CTA bilaterally CVS: Irregularly irregular rhythm, tachycardic GI: +BS, NT, no distention Skin: Warm, dry Neuro: Mild left-sided facial droop. Patient handling secretions well. No dysarthria or difficulty word finding noted. Motor grossly intact bilaterally. Intact sensation to light touch of face and bilateral upper and lower extremities. Intact and symmetric strength of upper and lower extremities bilaterally. Negative pronator drift. Extremities: No edema Psych: Appropriate affect Results Labs 01/17/24 11:08 01/17/24 11:08 Labs: Laboratory Results - last 24 hr 01/17/24 01/17/24 01/17/24 11:08 11:43 11:49 MCV 87.5 MCH 31.2 MCHC 35.6 RDW 13.2 Plt Count 184 MPV 9.0 L Immature Gran % (Auto) 0.6 H Neut % (Auto) 53.5 Lymph % (Auto) 32.9 [place] % (Auto) 10.6 Eos % (Auto) 1.6 Baso % (Auto) 0.8 Lymph # (Auto) 2.3 [place] # (Auto) 0.8 Eos # (Auto) 0.1 Baso # (Auto) 0.1 Abs Immat Gran (auto) 0.04 H Absolute Neuts (auto) 3.8 Absolute Nucleated RBC 0.000 Nucleated RBC % (auto) 0.0 PT 11.4 INR 1.0 APTT 29.8 VBG pH 7.39 VBG pCO2 62 VBG pO2 44 VBG HCO3 38 H VBG O2 Saturation 74.0 VBG Base Excess 10.7 Anion Gap 15 Estim Creat Clear Calc 68.6 Estimated GFR 58 Random Glucose 116 H Estimat Average Glucose 117 Hemoglobin A1c % 5.7 Calcium 9.7 Magnesium 2.4 Total Bilirubin 0.6 Direct Bilirubin 0.2 AST 36 ALT 56 H Alkaline Phosphatase 51 Troponin I High Sens < 2.7 B-Natriuretic Peptide 174 H Total Protein 7.3 Albumin 4.5 Triglycerides 326 H Cholesterol 259 H LDL Cholesterol, Calc 146 H HDL Cholesterol 48 Influenza Type A (PCR) NEGATIVE Influenza Type B (PCR) NEGATIVE RSV RNA Qual (PCR) NEGATIVE SARS-CoV-2 RNA (RT-PCR) NEGATIVE Imaging Radiologist's Impressions: Impressions Chest X-Ray 01/17/24 11:01 IMPRESSION: Mild cardiomegaly, new when compared to the prior examination. Electronically signed by: Tam Adam MD 01/17/2024 12:01 PM [employer] Workstation: [id number] Head CT 01/17/24 11:01 IMPRESSION: No acute intracranial hemorrhage or mass effect. This critical result was discussed with Dr. Sung at 11:25 AM on 01/17/2024. It was ascertained that the content and urgency of the report was understood at the time of direct communication. Electronically signed by: Tam Adam MD 01/17/2024 11:27 AM [facility] [facility] Head/Neck CTA 01/17/24 11:14 IMPRESSION: IV contrast enhanced CT the head: *No acute intracranial abnormalities. No acute infarcts or intracranial hemorrhage. CT angiography head: *No intracranial large vessel occlusions. *Minimal scattered nonocclusive calcific atherosclerosis of the cavernous portions of the internal carotid arteries. CT angiography neck: *No occlusions or stenoses of the cervical carotid and vertebral artery systems. *Nonocclusive eccentric mixed calcific and noncalcific nonulcerative plaque within the left carotid bulb. Patent right carotid bulb. *Multilevel chronic spondylosis of the cervical spine. Status post C4-C5 interbody fusion. Status post C5-C6 interbody device placement. No gross interbody osseous bridging at C5-C6. Electronically signed by: Nate Bain MD 01/17/2024 11:51 AM [facility] Assessment and Plan (1) Facial droop: Status: Acute (2) Atrial fibrillation with RVR: Status: Acute Plan Pt is a 68-year-old male with a PMH significant for?paroxysmal AFib no longer taking Eliquis or Multaq, HLD, and peripheral neuropathy who presents to the ED with?left-sided facial droop and drooling since earlier this morning. Pt will be admitted to the hospital for treatment and further evaluation of left-sided facial droop concerning for CVA versus TIA and AFib with RVR secondary to medication noncompliance. Left-sided facial droop Patient noted drooling from left side of his mouth at breakfast this morning No other deficits noted TNK not given in ED given NIH score of 1, per neurology recommendations Non-compliant with Eliquis, CTA showing some atherosclerosis CT of head and negative for acute hemorrhage or mass effect Lipid profile elevated Will treat with aspirin, atorvastatin MRI brain Echocardiogram with bubble study PT/OT evaluation Neurology consult Monitor on telemetry AFib with RVR Arrived in AFib with RVR as high as 156 Pt with SOB, difficulty breathing x1-2 months, worsening last 2 days Pt noncompliant with medications: Stopped taking Eliquis and Multaq on his own 6 months ago Was treated with diltiazem 10mg IV and metoprolol 25mg p.o. Will treat with metoprolol 25 mg p.o. Q 6 Echocardiogram as above Cardiology consult Monitor on telemetry Full Code Attending:?Dr. El DVT Prophylaxis: On Eliquis Pt will require a hospitalization of at least two nights for treatment of?left-sided facial droop concerning for CVA versus TIA as well as AFib with RVR likely secondary to medication noncompliance. Patient will require additional imaging and workup, close monitoring of cardiac function, and specialist consultation with Neurology, Cardiology, and PT. Quality Stroke Does the patient have a stroke diagnosis?: No VTE Prior VTE?: No VTE Risk Level:: Medical - moderate - high VTE Device Contraindication: Treatment Not Indicated VTE Drug Contraindication: N/A - Med Ordered
--- NOTE | 2024-01-17 13:16 | PHA.MEDREC ---
Addendum entered by Carine Wright RPh 01/17/24 13:40: med rec reviewed by [email or web address] Original Note: Pharmacy Consult ? Medication Reconciliation Pharmacy has completed the medication reconciliation. Spoke to pt to confirm meds. Reports only taking levalbuterol inhaler. Stopped taking Multaq and Eliquis 6 months ago because the patient's labs and tests were fine , so they discontinued the medications on their own. 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
[2024-01-17] MEDS: Apixaban 5 MG TABLET PO (14:30)
--- NOTE | 2024-01-17 14:55 | PC.NURSE ---
Pt off unit to MRI
--- NOTE | 2024-01-17 15:57 | PC.NURSE ---
Returned from MRI, vss, reports feeling better
[2024-01-17] MEDS: 0.9 % Sodium Chloride Flush 3 ML SYRINGE IVFLUSH ×2 (17:05→20:20)
[2024-01-17] MEDS: Atorvastatin Calcium 40 MG TABLET PO (20:20)
[2024-01-17] MEDS: Melatonin 3 MG TABLET 6 MG PO (20:22)
[2024-01-18] VITALS (8 sets, daily range): BP systolic 112–131; BP diastolic 78–94; PULSE 70–90; RESP 14–20; TEMP 36.2–36.8; O2SAT 95–97
[2024-01-18] MEDS: diphenhydrAMINE HCL 25 MG CAPSULE 50 MG PO (03:24)
[2024-01-18] MEDS: 0.9 % Sodium Chloride Flush 3 ML SYRINGE IVFLUSH ×2 (09:10→23:17)
[2024-01-18] MEDS: Magnesium Oxide 400 MG TABLET PO (09:10)
[2024-01-18] MEDS: Cyanocobalamin (Vitamin B-12) 1,000 MCG TABLET 1000 MCG PO (09:10)
[2024-01-18] MEDS: Metoprolol Tartrate 25 MG TABLET PO (09:10)
[2024-01-18] MEDS: Aspirin Enteric Coated 81 MG TABLET.DR PO (09:10)
[2024-01-18] MEDS: Apixaban 5 MG TABLET PO ×2 (09:10→20:11)
--- NOTE | 2024-01-18 11:14 | P.CONCA_ITS ---
History of Present Illness History of Present Illness Date of Service: 01/18/24 Chief complaint: Afib W/RVR Facial Droop ? CVA vs TIA Narrative: This is a cardiology consultation regarding atrial fibrillation and stroke. Patient has been seen by Valeria More in our clinic. It seems that he has a history of paroxysmal atrial fibrillation. He was maintained on combination regimen including diltiazem, Multaq and Eliquis. However, about 6 months ago patient felt that the medications were not necessary and hence he stopped everything. He had been having various symptoms including shortness of breath, heartburn type symptoms but it has been going on for a long time. With regard to the heartburn, he states it is essentially persistent 24 hours a day and gets worse with lying down and hence not clear if it is just acid reflux. It is nonexertional. Current admission is because of stroke and left-sided facial droop. He is also found to be in atrial fibrillation with rapid ventricular response. Hence we are consulted. Currently, the stroke symptoms are much better. He states he is feeling better as well. Review of Systems 2 Review of Systems: Yes all other systems are reviewed and are negative Constitutional: Constitutional: Reports as per HPI and Reports no additional constitutional complaints Eyes: Eyes: Reports as per HPI and Denies no additional eye complaints ENT: Denies system reviewed and no additional complaints, except as documented and Reports as per HPI Cardiovascular: Cardiovascular: Reports as per HPI, Reports no additional cardiovascular complaints, Denies acrocyanosis, Denies cool extremities, Denies chest pain, Denies leg edema, Denies lightheadedness, Denies palpitations and Reports dyspnea Respiratory: Respiratory: Reports as per HPI, Denies no additional respiratory complaints and Reports dyspnea Gastrointestinal: Gastrointestinal: Reports as per HPI, Denies no additional gastrointestinal complaints and Reports heartburn Genitourinary: Genitourinary: Reports no additional male genitourinary complaints and Reports as per HPI Musculoskeletal: Musculoskeletal: Reports no additional musculoskeletal complaints and Reports as per HPI Integumentary/Breasts: Skin/Breast: Reports system reviewed and no additional complaints, except as docu Neurologic: Reports system reviewed and no additional complaints, except as documented and Reports as per HPI Psychiatric: Psychiatric: Reports no additional psychiatric complaints and Reports as per HPI Endocrine: Endocrine: Reports no additional endocrine complaints, Reports as per HPI and Denies palpitations Hematologic/Lymphatic: Hematologic/Lymphatic: Reports no additional hematologic/lymphatic complaints and Reports as per HPI Allergic/Immunologic: Allergic/Immunologic: Reports no additional allergic/immunologic complaints and Reports as per HPI [facility] Past Medical History Medical History Afib Arthritis of right acromioclavicular joint Asthma, mild intermittent, well-controlled Family History Family History Father Dementia Mother CHF (congestive heart failure) Hypertension Brother Afib Son In good health Daughter In good health Daughter In good health Sister No problems noted. Surgical History Surgical History History of fusion of cervical spine History of repair of laceration History of carpal tunnel release Social History Social History Household Members: Spouse Housing: House Do you presently have visiting nurse or other home services: No Alcohol intake: current Alcohol intake frequency: 0-2 drinks per day Alcohol type: beer Patient Tobacco Use Status: Former Tobacco user Years Smoked: 15 Smoked in Last 30 Days: No e-Cigarette/Vaping Use: Never Used Second Hand Smoke Exposure: No Use of substances other than those prescribed or required for medical reasons: No Currently Displaying Signs/Symptoms of Drug Intoxication Withdrawal: No Have you been hit, kicked, punched, or otherwise hurt by someone within the past year? If so, by whom?: No Do you feel safe in your current relationship?: Yes Is there a partner from a previous relationship who is making you feel unsafe now?: No Are you made to feel afraid or neglected: No Advance Directives: No Advance Directives Information Provided: Yes Do you have a plan to hurt others: No Plan Recently lost weight without trying: No service: No Current occupational status: retired Current occupational exposures/hazards: No Cognitive needs: No Hearing needs: No Vision needs: Yes (wears glasses) Meds Allergies Allergy/AdvReac Type Severity Reaction Status Date / Time No Known Allergies Allergy Verified 01/17/24 10:48 Active Medications: Current Medications Acetaminophen (Acetaminophen 325 Mg Tablet) 650 mg PO Q6H PRN PRN Reason: Pain, Mild (Pain Scale 1-3), fever or headache Albuterol Sulfate (Albuterol Sulfate 90 Mcg 8 Gm Inhaler) 2 puff INHALE Q4H PRN PRN Reason: shortness of breath Apixaban (Apixaban 5 Mg Tablet) 5 mg PO BID [facility] Last Admin: 01/18/24 09:10 Dose: 5 mg Aspirin (Aspirin Enteric Coated 81 Mg Tablet.Dr) 81 mg PO DAILY [facility] Last Admin: 01/18/24 09:10 Dose: 81 mg Atorvastatin Calcium (Atorvastatin Calcium 40 Mg Tablet) 40 mg PO BEDTIME [facility] Last Admin: 01/17/24 20:20 Dose: 40 mg Benzonatate (Benzonatate 100 Mg Capsule) 100 mg PO TID PRN PRN Reason: Cough Calcium Carbonate (Calcium Carbonate 750 Mg Tab.Chew) 750 mg PO Q4H PRN PRN Reason: Heartburn Cyanocobalamin (Cyanocobalamin (Vitamin B-12) 1,000 Mcg Tablet) 1,000 mcg PO DAILY [facility] Last Admin: 01/18/24 09:10 Dose: 1,000 mcg Magnesium Hydroxide (Milk Of Magnesia 30 Ml Oral.Susp) 30 ml PO DAILY PRN PRN Reason: Constipation Magnesium Oxide (Magnesium Oxide 400 Mg Tablet) 400 mg PO DAILY [facility] Last Admin: 01/18/24 09:10 Dose: 400 mg Metoprolol Tartrate (Metoprolol Tartrate 50 Mg Tablet) 50 mg PO QID [facility]; Protocol Ondansetron HCl (Ondansetron Hcl 4 Mg/2 Ml Vial) 4 mg IVPUSH Q8H PRN PRN Reason: Nausea and Vomiting Sodium Chloride (0.9 % Sodium Chloride Flush 3 Ml Syringe) [facility] Last Admin: 01/18/24 09:10 Dose: 3 ml Home Medications ?Medication ?Instructions ?Recorded ?Confirmed ?Last Taken ?Type cyanocobalamin (vitamin B-12) 1,000 mcg PO DAILY 01/17/24 01/17/24 Unknown History 1,000 mcg tablet levalbuterol tartrate 45 2 puff inhalation Q4H PRN 01/17/24 01/17/24 Unknown History mcg/actuation aerosol inhaler shortness of breath magnesium oxide 400 mg (241.3 mg 400 mg PO DAILY 01/17/24 01/17/24 Unknown History magnesium) tablet omega 6-iap-yyx-fish oil 300 1 cap PO DAILY 01/17/24 01/17/24 Unknown History mg-1,000 mg capsule,delayed release (Fish Oil) Physical Exam 2 Vital Signs: Vital Signs: Last Vital Signs Temp 98.3 F 01/18/24 08:00 Pulse 90 01/18/24 08:00 Resp 18 01/18/24 08:00 BP 128/88 01/18/24 08:00 Pulse Ox 96 01/18/24 08:00 O2 Del Method Room Air 01/18/24 08:00 BMI result Body Mass Index 35.5 Const: General: comfortable and no acute distress O rientation/consciousness: patient oriented x3 HEENT: Other: Unremarkable Head: Yes normal to inspection Neck: Neck: Yes normal visual inspection Chest: Chest palpation & inspection: normal inspection of the chest Resp: Auscultation: clear to auscultation bilaterally Cardio: Palpation: normal PMI Heart sounds: S1 normal heart sound present, S2 normal heart sound present, no gallops, no murmurs and no rubs GI: Palpation (GI): Soft to palpation Back/Spine/Pelvis: Other: unremarkable Skin: General skin exam: no rashes or lesions noted Neuro: General: patient oriented x3 Extrem: General: Yes normal to inspection Psych: Mental Status: mental status grossly normal Objective Labs and Meds 01/17/24 11:08 01/17/24 11:08 Lab results: Laboratory Results - last 24 hr 01/17/24 01/17/24 01/17/24 11:08 11:43 11:49 WBC 7.1 RBC 5.45 Hgb 17.0 Hct 47.7 MCV 87.5 MCH 31.2 MCHC 35.6 RDW 13.2 Plt Count 184 MPV 9.0 L Immature Gran % (Auto) 0.6 H Neut % (Auto) 53.5 Lymph % (Auto) 32.9 Cobb % (Auto) 10.6 Eos % (Auto) 1.6 Baso % (Auto) 0.8 Lymph # (Auto) 2.3 Cobb # (Auto) 0.8 Eos # (Auto) 0.1 Baso # (Auto) 0.1 Abs Immat Gran (auto) 0.04 H Absolute Neuts (auto) 3.8 Absolute Nucleated RBC 0.000 Nucleated RBC % (auto) 0.0 PT 11.4 INR 1.0 APTT 29.8 VBG pH 7.39 VBG pCO2 62 VBG pO2 44 VBG HCO3 38 H VBG O2 Saturation 74.0 VBG Base Excess 10.7 Sodium 142 Potassium 4.4 Chloride 109 H Carbon Dioxide 22 Anion Gap 15 BUN 21 H Creatinine 1.25 Estim Creat Clear Calc 68.6 Estimated GFR 58 Random Glucose 116 H Estimat Average Glucose 117 Hemoglobin A1c % 5.7 Calcium 9.7 Magnesium 2.4 Total Bilirubin 0.6 Direct Bilirubin 0.2 AST 36 ALT 56 H Alkaline Phosphatase 51 Troponin I High Sens < 2.7 B-Natriuretic Peptide 174 H Total Protein 7.3 Albumin 4.5 Triglycerides 326 H Cholesterol 259 H LDL Cholesterol, Calc 146 H HDL Cholesterol 48 Influenza Type A (PCR) NEGATIVE Influenza Type B (PCR) NEGATIVE RSV RNA Qual (PCR) NEGATIVE SARS-CoV-2 RNA (RT-PCR) NEGATIVE ECG Interpretation: EKG with atrial fibrillation at a rate of 120/Min. Imaging Radiologist's impression: Impressions Chest X-Ray 01/17/24 11:01 IMPRESSION: Mild cardiomegaly, new when compared to the prior examination. Electronically signed by: Tam Adam MD 01/17/2024 12:01 PM [employer] RP Head CT 01/17/24 11:01 IMPRESSION: No acute intracranial hemorrhage or mass effect. This critical result was discussed with Dr. Sung at 11:25 AM on 01/17/2024. It was ascertained that the content and urgency of the report was understood at the time of direct communication. Electronically signed by: Tam Adam MD 01/17/2024 11:27 AM EST RP Head/Neck CTA 01/17/24 11:14 IMPRESSION: IV contrast enhanced CT the head: *No acute intracranial abnormalities. No acute infarcts or intracranial hemorrhage. CT angiography head: *No intracranial large vessel occlusions. *Minimal scattered nonocclusive calcific atherosclerosis of the cavernous portions of the internal carotid arteries. CT angiography neck: *No occlusions or stenoses of the cervical carotid and vertebral artery systems. *Nonocclusive eccentric mixed calcific and noncalcific nonulcerative plaque within the left carotid bulb. Patent right carotid bulb. *Multilevel chronic spondylosis of the cervical spine. Status post C4-C5 interbody fusion. Status post C5-C6 interbody device placement. No gross interbody osseous bridging at C5-C6. Electronically signed by: Nate Bain MD 01/17/2024 11:51 AM EST RP Brain MRI 01/17/24 15:00 IMPRESSION: There is a small subacute infarct within the right insular cortex. There are small subacute infarcts within the right boswell radiata. This critical result was discussed with Corey BILLINGS at 9:23 PM on 01/17/2024 and it was ascertained that the content and urgency of the report was understood at the time of direct communication. Electronically signed by: Partha Louis DO 01/17/2024 09:23 PM EST RP Assessment and Plan (1) Atrial fibrillation with RVR: Status: Acute (2) Embolic stroke: Status: Acute Plan Cardiac studies reviewed. Echocardiogram from 2022 with LVEF of 55-60%. Mildly dilated left atrium. Mild aortic regurgitation. In the Holter from 2022, underlying sinus rhythm with intermittent atrial fibrillation and a burden of 13%. Myocardial perfusion imaging study from 2022 shows probably normal perfusion. Overall, suspect possibly embolic stroke related to not taking anticoagulation. Duration of the current atrial fibrillation issue is not clear. By EKG from June of this year, he was in normal sinus rhythm. Hence he could have had atrial fibrillation since any time after that. In the setting of acute stroke, recommend mainly rate control medications. Beta-blockers can be up titrate for adequate rate control. If necessary, add digoxin. Anticoagulation with Eliquis. Statins for dyslipidemia. Repeat echocardiogram. Consider cardioversion in about 4-6 weeks. Eventually, if he wants to stay off antiarrhythmics, then possibly ablation. Discussed with significant other at the bedside. Discussed with Dr. El. Procedures Date of Service Date of Service: 01/18/24
[2024-01-18] MEDS: Metoprolol Tartrate 50 MG TABLET PO ×3 (11:53→20:11)
[2024-01-18] MEDS: Acetaminophen 325 MG TABLET 650 MG PO ×3 (11:53→23:14)
--- NOTE | 2024-01-18 12:03 | PM.NEUROCN ---
History of Present Illness Data of Consult Service Date: 01/18/24 Primary Care Provider: Gabe Warren MD [facility] Reason for consult: Stroke 68 years old man with atrial fibrillation who stopped taking anticoagulation on his old stating that whenever he saw his doctors the told him that everything was okay but then he said why he was taking that medicine and on his own 1 day stopped taking it. He came to hospital with new onset of facial droop. He said that he was having difficulty eating due to that and at the same time was having palpitation. In emergency room he was noted to have mild facial droop. Despite the fact that he was having an ischemic stroke, because of minor nature of symptoms a limited NIH stroke scale, he was not considered a candidate for treatment like TNK. CTA did not reveal any arterial lesion and intra-arterial treatment was also not considered. Now he was feeling better Review of Systems Review of Systems: No recent cold or flu-like illness. [facility] Past Medical History Medical History Afib Arthritis of right acromioclavicular joint Asthma, mild intermittent, well-controlled Family History Family History Father Dementia Mother CHF (congestive heart failure) Hypertension Brother Afib Son In good health Daughter In good health Daughter In good health Sister No problems noted. Surgical History Surgical History History of fusion of cervical spine History of repair of laceration History of carpal tunnel release Social History Social History Household Members: Spouse Housing: House Do you presently have visiting nurse or other home services: No Alcohol intake: current Alcohol intake frequency: 0-2 drinks per day Alcohol type: beer Patient Tobacco Use Status: Former Tobacco user Years Smoked: 15 Smoked in Last 30 Days: No e-Cigarette/Vaping Use: Never Used Second Hand Smoke Exposure: No Use of substances other than those prescribed or required for medical reasons: No Currently Displaying Signs/Symptoms of Drug Intoxication Withdrawal: No Have you been hit, kicked, punched, or otherwise hurt by someone within the past year? If so, by whom?: No Do you feel safe in your current relationship?: Yes Is there a partner from a previous relationship who is making you feel unsafe now?: No Are you made to feel afraid or neglected: No Advance Directives: No Advance Directives Information Provided: Yes Do you have a plan to hurt others: No Plan Recently lost weight without trying: No service: No Current occupational status: retired Current occupational exposures/hazards: No Cognitive needs: No Hearing needs: No Vision needs: Yes (wears glasses) Meds Allergies Allergy/AdvReac Type Severity Reaction Status Date / Time No Known Allergies Allergy Verified 01/17/24 10:48 Active Medications: Current Medications Acetaminophen (Acetaminophen 325 Mg Tablet) 650 mg PO Q6H PRN PRN Reason: Pain, Mild (Pain Scale 1-3), fever or headache Last Admin: 01/18/24 11:53 Dose: 650 mg Albuterol Sulfate (Albuterol Sulfate 90 Mcg 8 Gm Inhaler) 2 puff INHALE Q4H PRN PRN Reason: shortness of breath Apixaban (Apixaban 5 Mg Tablet) 5 mg PO BID [facility] Last Admin: 01/18/24 09:10 Dose: 5 mg Aspirin (Aspirin Enteric Coated 81 Mg Tablet.Dr) 81 mg PO DAILY [facility] Last Admin: 01/18/24 09:10 Dose: 81 mg Atorvastatin Calcium (Atorvastatin Calcium 40 Mg Tablet) 40 mg PO BEDTIME [facility] Last Admin: 01/17/24 20:20 Dose: 40 mg Benzonatate (Benzonatate 100 Mg Capsule) 100 mg PO TID PRN PRN Reason: Cough Calcium Carbonate (Calcium Carbonate 750 Mg Tab.Chew) 750 mg PO Q4H PRN PRN Reason: Heartburn Cyanocobalamin (Cyanocobalamin (Vitamin B-12) 1,000 Mcg Tablet) 1,000 mcg PO DAILY [facility] Last Admin: 01/18/24 09:10 Dose: 1,000 mcg Magnesium Hydroxide (Milk Of Magnesia 30 Ml Oral.Susp) 30 ml PO DAILY PRN PRN Reason: Constipation Magnesium Oxide (Magnesium Oxide 400 Mg Tablet) 400 mg PO DAILY [facility] Last Admin: 01/18/24 09:10 Dose: 400 mg Metoprolol Tartrate (Metoprolol Tartrate 50 Mg Tablet) 50 mg PO QID [facility]; Protocol Last Admin: 01/18/24 11:53 Dose: 50 mg Ondansetron HCl (Ondansetron Hcl 4 Mg/2 Ml Vial) 4 mg IVPUSH Q8H PRN PRN Reason: Nausea and Vomiting Sodium Chloride (0.9 % Sodium Chloride Flush 3 Ml Syringe) 3 ml IVFLUSH QSHIFT [facility] Last Admin: 01/18/24 09:10 Dose: 3 ml Home Medications ?Medication ?Instructions ?Recorded ?Confirmed ?Last Taken ?Type cyanocobalamin (vitamin B-12) 1,000 mcg PO DAILY 01/17/24 01/17/24 Unknown History 1,000 mcg tablet levalbuterol tartrate 45 2 puff inhalation Q4H PRN 01/17/24 01/17/24 Unknown History mcg/actuation aerosol inhaler shortness of breath magnesium oxide 400 mg (241.3 mg 400 mg PO DAILY 01/17/24 01/17/24 Unknown History magnesium) tablet omega 3-wgg-ift-fish oil 300 1 cap PO DAILY 01/17/24 01/17/24 Unknown History mg-1,000 mg capsule,delayed release (Fish Oil) Physical Exam Vital Signs: Vital Signs: Last Vital Signs Temp 98.3 F 01/18/24 08:00 Pulse 90 01/18/24 11:53 Resp 18 01/18/24 08:00 BP 128/88 01/18/24 11:53 Pulse Ox 96 01/18/24 08:00 O2 Del Method Room Air 01/18/24 08:00 BMI result Body Mass Index 35.5 Neuro: Other: He is alert and awake with normal spontaneity of speech fluency comprehension and affect. There is mild left-sided central facial weakness. There is no pronator drift. Deep tendon reflexes are trace to absent with flexor plantars. Visual hawkins are full. Speech is normal. Results Labs 01/17/24 11:08 01/17/24 11:08 Labs: MRI of brain revealed a small right perisylvian acute ischemic infarction. CTA did not reveal any large vessel disease. 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 He was educated about this problem and was advised to continue anticoagulation for life. I would recommend putting him back on anticoagulation and educate him about the risk of not taking this type of medicines. Procedures Date of Service Date of Service: 01/18/24
--- NOTE | 2024-01-18 12:15 | MHC.CM.PN ---
IMM DELIVERED. PATIENT LIVES IN A HOME W/ . FUNCTIONALLY INDP. DENIES USE OF DME OR SERVICES PCP DR BANDA NO HCP. CM PROVIDED EDUCATION AND OFFERED ASSISTANCE. PATIENT DECLINED. STATES HIS IS WORKING ON THIS. DP: PENDING FORMAL PT/OT EVAL. PATIENT FEELS HE IS AT HIS BASELINE AND WILL NOT REQUIRE AR. GOAL IS HOME, WOULD BE OPEN TO SERVICES VIA [facility] IF RECOMMENDED. WILL TRANSPORT. CM WILL CONTINUE TO FOLLOW.
--- NOTE | 2024-01-18 12:37 | P.PNIM_ITS ---
Subjective Subjective Date of Service: 01/18/24 Interval History: Seen and evaluated this morning facial drop resolving denies any focal weakness HR better controlled Review of Systems Review of Systems: Yes all other systems are reviewed and are negative Physical Exam 2 Vital Signs: Vital Signs: Last Vital Signs Temp 98.3 F 01/18/24 08:00 Pulse 90 01/18/24 11:53 Resp 18 01/18/24 08:00 BP 128/88 01/18/24 11:53 Pulse Ox 96 01/18/24 08:00 O2 Del Method Room Air 01/18/24 08:00 BMI result Body Mass Index 35.5 Const: Other: Constitutional : Awake, interactive, not in distress Neck : Normal inspection, Supple Cardiovascular : irregular irregular, no JVP, no lower extremity edema Respiratory : good bilateral air entry, no crackles, wheezes or rhonchi Gastrointestinal: soft, lax, Normal bowel sounds, Non tender Skin : Warm, Dry Neurological : Alert & oriented x3, No focal deficit , CN 2-12 within normal Objective Data Active Medications Acetaminophen (Acetaminophen 325 Mg Tablet) 650 mg PO Q6H PRN PRN Reason: Pain, Mild (Pain Scale 1-3), fever or headache Last Admin: 01/18/24 11:53 Dose: 650 mg Documented By: ALEXEI Albuterol Sulfate (Albuterol Sulfate 90 Mcg 8 Gm Inhaler) 2 puff INHALE Q4H PRN PRN Reason: shortness of breath Apixaban (Apixaban 5 Mg Tablet) 5 mg PO BID [facility] Last Admin: 01/18/24 09:10 Dose: 5 mg Documented By: ALEXEI Aspirin (Aspirin Enteric Coated 81 Mg Tablet.) 81 mg PO DAILY [facility] Last Admin: 01/18/24 09:10 Dose: 81 mg Documented By: ALEXEI Atorvastatin Calcium (Atorvastatin Calcium 40 Mg Tablet) 40 mg PO BEDTIME [facility] Last Admin: 01/17/24 20:20 Dose: 40 mg Documented By: BERNIE Benzonatate (Benzonatate 100 Mg Capsule) 100 mg PO TID PRN PRN Reason: Cough Calcium Carbonate (Calcium Carbonate 750 Mg Tab.Chew) 750 mg PO Q4H PRN PRN Reason: Heartburn Cyanocobalamin (Cyanocobalamin (Vitamin B-12) 1,000 Mcg Tablet) 1,000 mcg PO DAILY [facility] Last Admin: 01/18/24 09:10 Dose: 1,000 mcg Documented By: ALEXEI Magnesium Hydroxide (Milk Of Magnesia 30 Ml Oral.Susp) 30 ml PO DAILY PRN PRN Reason: Constipation Magnesium Oxide (Magnesium Oxide 400 Mg Tablet) 400 mg PO DAILY [facility] Last Admin: 01/18/24 09:10 Dose: 400 mg Documented By: ALEXEI Metoprolol Tartrate (Metoprolol Tartrate 50 Mg Tablet) 50 mg PO QID [facility]; Protocol Last Admin: 01/18/24 11:53 Dose: 50 mg Documented By: ALEXEI Ondansetron HCl (Ondansetron Hcl 4 Mg/2 Ml Vial) 4 mg IVPUSH Q8H PRN PRN Reason: Nausea and Vomiting Sodium Chloride (0.9 % Sodium Chloride Flush 3 Ml Syringe) 3 ml IVFLUSH QSHIFT [facility] Last Admin: 01/18/24 09:10 Dose: 3 ml Documented By: ALEXEI Labs 01/17/24 11:08 01/17/24 11:08 Assessment and Plan (1) Embolic stroke: Status: Acute (2) Facial droop: Status: Acute (3) Atrial fibrillation with rapid ventricular response: Status: Acute Plan Pt is a 68-year-old male with a PMH significant for?paroxysmal AFib no longer taking Eliquis or Multaq, HLD, and peripheral neuropathy who presents to the ED with?left-sided facial droop and drooling since earlier this morning. Pt will be admitted to the hospital for treatment and further evaluation of left-sided facial droop concerning for CVA versus TIA and AFib with RVR secondary to medication noncompliance. Left-sided facial droop resolving, No other deficits noted Non-compliant with Eliquis, CTA showing some atherosclerosis CT of head and negative for acute hemorrhage or mass effect, MRI showing acute stroke in Continue atorvastatin Started Eliquis, DC Aspirin Echocardiogram with bubble study PT/OT evaluation Neurology input appreciated Monitor on telemetry AFib with RVR HR better controlled Increased metoprolol to 50 mg p.o. Q 6 Cardiology consult, add Digoxin if needed, in 4-6 weeks follow up for cardioversion Monitor on telemetry Full Code DVT Prophylaxis: On Eliquis Pt will require a hospitalization overnight for treatment of?left-sided facial droop concerning for CVA as well as AFib with RVR . Patient will require additional imaging and workup, close monitoring of cardiac function, Echo and PT. Quality Stroke Does the patient have a stroke diagnosis?: No VTE Prior VTE?: No VTE Risk Level:: Medical - moderate - high VTE Device Contraindication: Treatment Not Indicated VTE Drug Contraindication: N/A - Med Ordered
[2024-01-18] MEDS: Atorvastatin Calcium 40 MG TABLET PO (20:11)
[2024-01-19] VITALS (7 sets, daily range): BP systolic 105–120; BP diastolic 78–92; PULSE 74–108; RESP 17–20; TEMP 36.3–37.2; O2SAT 94–98
[2024-01-19 06:37] LABS: Hematocrit 48.8 % (42.0-52.0); Hemoglobin 17.1 g/dl (14.0-18.0); Mean Corpuscular Hemoglobin 31.3 pg (27.0-33.0); Mean Corpuscular Volume 89.2 fL (80.0-98.0); Mean Platelet Volume 9.2 fL (9.4-12.4); Platelet Count 174 X10*3/uL (160-400); Red Blood Count 5.47 X10*6/uL (4.60-5.80); White Blood Count 7.3 X10*3/uL (4.8-10.8)
[2024-01-19 06:51] LABS: Anion Gap 12 (12-20); Blood Urea Nitrogen 22 mg/dL (9-16); Calcium 9.5 mg/dL (8.4-10.2); Carbon Dioxide 24 mmol/L (22-29); Chloride 107 mmol/L (96-108); Estimated Glomerular Filt Rate 57; Glucose Random 102 mg/dL (60-115); Potassium 4.3 mmol/L (3.3-5.1); Sodium 139 mmol/L (135-145)
--- NOTE | 2024-01-19 07:00 | CA_ITS ---
Transthoracic Echocardiogram Patient (Last, First, Middle): Parrish Kaiser, Gender: Male Date of : 1955 Age: 68 Procedure Date: 01/19/2024 Procedure Type: Transthoracic Echocardiogram Location: [facility] [place] Height: 172. cm Weight: 105.69 kg BSA: 2.17 m2 Heart Rate: 93 bpm BP: 105 / 78 mmHg Assistant Floor Covering Printer: MADDY Referring MD: Corey BILLINGS Symptoms: ?CVA vs TIA, AFib w/RVR, new cardiomegaly on CXR Study Quality: Adequate w contrast ECG Rhythm: Atrial Fibrillation Conclusions: - Normal left ventricular cavity size. There is normal left ventricular wall thickness. The left ventricular systolic function is moderately decreased. The visually estimated ejection fraction is between 30-35%. - Mildly increased right ventricular cavity size. There is mildly decreased right ventricular systolic function. - There is mild dilatation of the ascending aorta measuring 3.70 cm. Findings Procedure Information Contrast agent, definity, is being given per protocol without apparent complications. Left Ventricle Normal left ventricular cavity size. There is normal left ventricular wall thickness. The left ventricular systolic function is moderately decreased. The visually estimated ejection fraction is between 30-35%. There is moderate global hypokinesis. Diastolic function is indeterminate on the basis of available data. Right Ventricle Mildly increased right ventricular cavity size. There is mildly decreased right ventricular systolic function. Atria The left atrium is mildly dilated. The right atrium is normal in size. Aortic Valve There is a normal trileaflet aortic valve. There is mild calcification of the aortic valve. There is no aortic valve stenosis. There is mild aortic valve regurgitation. Mitral Valve The mitral valve appears normal. There is trace mitral valve regurgitation. There is no mitral valve stenosis. Pulmonic Valve The pulmonic valve is likely normal. Tricuspid Valve Normal tricuspid valve structure. There is trace tricuspid valve regurgitation. Mildly elevated right atrial pressure. There is no evidence of pulmonary hypertension. Great Vessels There is mild dilatation of the ascending aorta measuring 3.70 cm. Small plaque is seen in the sino tubular ridge. Venous The inferior vena cava is dilated and collapses greater than 50% with inspiration. Pericardium/Pleural There is no evidence of pericardial effusion. Prior Study Comparison Changes noted compared to prior study dated: 08/26/2022. EF 30-35%, mild RV dysfunction. Measurements 2D Linear Measurements IVSd: 0.95 0.6-0.9/0.6-1.0 cm LVIDd: 5.42 3.9-5.3/4.2-5.9 cm LVIDd Index: 2.50 2.4-3.2/2.2-3.1 cm/m2 LVIDs: 3.72 2.0-3.6 cm LVPWd: 0.93 0.7-1.1 cm LA Diam: 4.70 2.7-3.8/3.0-4.0 cm LAIDs Index: 2.17 1.5-2.3 cm/m2 LV Mass: 239.16 67-162/88-224 g LV Mass Index: 110.21 43-95/49-115 g/m2 LVOT Diam: 2.40 3.0+(-)1.3 cm 2D Systolic Function EF 4C: 26.20 >55% EF 2C: 50.30 >55% EF BiP: 39.50 >55% Mitral Valve MV Pk E: 0.97 MV Decel Time: 156.00 E'Lateral: 10.40 E'Medial: 7.43 E/E' Med: 13.00 E/E' Lat: 9.30 PHT: 46.00 MVA PHT: 4.78 Decel [place]: 6.21 MR Vol - PW Dopp: 7.60 MR VTI: 1.52 MR ERO: 5.00 MR Alias Alfie: 0.39 MR RAD: 0.30 Aortic Valve AoV Pk Alfie: 1.08 AoV Mn Alfie: 0.85 AoV VTI: 0.19 AoV Pk Grad: 5.00 Aov Mn Grad: 3.00 JENELLE Cont.VTI: 3.54 AI Pk Alfie: 4.16 AI [place]: 1.41 LVOT LVOT Pk Alfie: 0.86 LVOT Mn Alfie: 0.63 LVOT VTI: 0.15 LVOT Pk Grad: 3.00 LVOT Mn Grad: 2.00 LVOT Diam: 2.40 LVOT Area: 4.52 Diastolic Function MV Pk E: 0.97 E'Medial: 7.43 E/E' Med: 13.00 E' Laterial: 10.40 E/E' Lat: 9.30 Right Ventricle TAPSE (mm): 19.30 TVS' Alfie: 10.90 Tricuspid Valve TR Pk Alfie: 1.59 TR Pk Grad: 10.00 RA Press: 8.00 RVSP: 18.00 Great Vessels Aorta Sinus of Valsalva: 3.50 2.0-3.5 cm Ao Asc: 3.70 2.1-3.4 cm Ao Arch: 3.50 Pulmonary Valve PV Pk Alfie: 0.62 Peak PV Grad: 2.00 Updated in Other Vendor System with Status of Final Harvey Lopez MD electronically signed on 01/19/2024 1:37:52 PM with status of Final
[2024-01-19] MEDS: Apixaban 5 MG TABLET PO ×2 (08:19→21:45)
[2024-01-19] MEDS: Metoprolol Succinate ER 50 MG TAB.ER.24H 150 MG PO ×2 (08:19→10:28)
[2024-01-19] MEDS: Cyanocobalamin (Vitamin B-12) 1,000 MCG TABLET 1000 MCG PO (08:19)
[2024-01-19] MEDS: Magnesium Oxide 400 MG TABLET PO (08:19)
[2024-01-19] MEDS: 0.9 % Sodium Chloride Flush 3 ML SYRINGE IVFLUSH ×2 (08:20→21:49)
[2024-01-19] MEDS: Acetaminophen 325 MG TABLET 650 MG PO ×3 (09:04→22:58)
[2024-01-19] MEDS: Digoxin 0.5 MG/2 ML AMPUL 0.4 MG IVPUSH (10:34)
--- NOTE | 2024-01-19 11:07 | PM.PNCARD ---
Subjective Subjective Date of Service: 01/19/24 Interval history: Seen examined at bedside. Physical Exam Vital Signs: Last Vital Signs Temp 97.4 F 01/19/24 10:46 Pulse 88 01/19/24 10:46 Resp 20 01/19/24 10:46 BP 111/80 01/19/24 10:46 Pulse Ox 95 01/19/24 10:46 O2 Del Method Room Air 01/19/24 10:46 BMI result Body Mass Index 35.5 GENERAL APPEARANCE: in no acute distress, pleasant. NECK: no carotid bruit, no jugular venous distention. SKIN: no suspicious lesions, warm and dry. HEART: no murmurs, irregular rate and rhythm. LUNGS: clear to auscultation bilaterally. ABDOMEN: soft, nontender. EXTREMITIES: no edema. PERIPHERAL PULSES: equal. NEUROLOGIC: No gross deficits, AAO X 3 Objective Labs and Meds 01/19/24 06:17 01/19/24 06:17 Lab results: Laboratory Results - last 24 hr 01/19/24 06:17 WBC 7.3 RBC 5.47 Hgb 17.1 Hct 48.8 MCV 89.2 MCH 31.3 MCHC 35.0 RDW 13.0 Plt Count 174 MPV 9.2 L Absolute Nucleated RBC 0.000 Nucleated RBC % (auto) 0.0 Sodium 139 Potassium 4.3 Chloride 107 Carbon Dioxide 24 Anion Gap 12 BUN 22 H Creatinine 1.26 Estim Creat Clear Calc 68.0 Estimated GFR 57 Random Glucose 102 Calcium 9.5 Progress Note: A&P Assessment and plan (1) Embolic stroke: Status: Acute (2) Atrial fibrillation with RVR: Status: Acute Plan [age] year gentleman with known history of atrial fibrillation and noncompliance with anticoagulation presenting with stroke. MRI has confirmed embolic CVA. After discussion he has been restarted on Eliquis and he is agreeable to take it regularly. Heart rate is better controlled currently on Toprol-XL 150 mg as well as digoxin load. Can start digoxin 125 mcg Friday along with Toprol-XL. Continue anticoagulation. If he is compliant with medicines and follows up regularly then we will consider cardioversion as outpatient. Thank you for allowing me to participate in the care of your patient. Please feel free to contact me if you have any questions. Time Spent With Patient Time: Total time managing care of this patient today ____ minutes. Progress Note: Quality Stroke Does the patient have a stroke diagnosis?: No Procedures Date of Service Date of Service: 01/19/24
--- NOTE | 2024-01-19 11:49 | MHC.STROKE ---
Met with patient and Adrianne to review stroke education. Pt awake, alert and oriented x 3. Pt sitting up in chair watching TV. We discussed patient's stroke location and signs/symptoms of strokes. We discussed risk factors including patient's hx of afib, elevated cholesterol, activity. We also discussed medication compliance and follow up. Patient and were engaged in conversation. All questions answered. Stroke Education pamphlet given to patient along with diagram of brain Will continue to assist as needed.
--- NOTE | 2024-01-19 13:43 | HO.PM.IMPN ---
Subjective Subjective Date of Service: 01/19/24 Interval History: Seen and evaluated this morning facial drop resolved Still in Afib w RvR denies any focal weakness Review of Systems Review of Systems: Yes all other systems are reviewed and are negative Physical Exam Vital Signs: Vital Signs: Last Vital Signs Temp 97.4 F 01/19/24 10:46 Pulse 88 01/19/24 10:46 Resp 20 01/19/24 10:46 BP 111/80 01/19/24 10:46 Pulse Ox 95 01/19/24 10:46 O2 Del Method Room Air 01/19/24 10:46 BMI result Body Mass Index 35.5 Const: Other: Constitutional : Awake, interactive, not in distress Neck : Normal inspection, Supple Cardiovascular : irregular irregular, no JVP, no lower extremity edema Respiratory : good bilateral air entry, no crackles, wheezes or rhonchi Gastrointestinal: soft, lax, Normal bowel sounds, Non tender Skin : Warm, Dry Neurological : Alert & oriented x3, No focal deficit , CN 2-12 within normal Objective Data Active Medications Acetaminophen (Acetaminophen 325 Mg Tablet) 650 mg PO Q6H PRN PRN Reason: Pain, Mild (Pain Scale 1-3), fever or headache Last Admin: 01/19/24 09:04 Dose: 650 mg Documented By: KRISTA Albuterol Sulfate (Albuterol Sulfate 90 Mcg 8 Gm Inhaler) 2 puff INHALE Q4H PRN PRN Reason: shortness of breath Apixaban (Apixaban 5 Mg Tablet) 5 mg PO BID [facility] Last Admin: 01/19/24 08:19 Dose: 5 mg Documented By: KRISTA Atorvastatin Calcium (Atorvastatin Calcium 40 Mg Tablet) 40 mg PO BEDTIME [facility] Last Admin: 01/18/24 20:11 Dose: 40 mg Documented By: JESSIEDRSarai Benzonatate (Benzonatate 100 Mg Capsule) 100 mg PO TID PRN PRN Reason: Cough Calcium Carbonate (Calcium Carbonate 750 Mg Tab.Chew) 750 mg PO Q4H PRN PRN Reason: Heartburn Cyanocobalamin (Cyanocobalamin (Vitamin B-12) 1,000 Mcg Tablet) 1,000 mcg PO DAILY [facility] Last Admin: 01/19/24 08:19 Dose: 1,000 mcg Documented By: HO.[email or web address] Digoxin (Digoxin 0.5 Mg/2 Ml Ampul) 0.25 mg IVPUSH Q6H [facility]; Protocol Stop: 01/19/24 21:01 Magnesium Hydroxide (Milk Of Magnesia 30 Ml Oral.Susp) 30 ml PO DAILY PRN PRN Reason: Constipation Magnesium Oxide (Magnesium Oxide 400 Mg Tablet) 400 mg PO DAILY [facility] Last Admin: 01/19/24 08:19 Dose: 400 mg Documented By: KRISTA Metoprolol Succinate (Metoprolol Succinate Er 50 Mg Tab.Er.24h) 150 mg PO DAILY [facility]; Protocol Last Admin: 01/19/24 10:28 Dose: 150 mg Documented By: KRISTA Ondansetron HCl (Ondansetron Hcl 4 Mg/2 Ml Vial) 4 mg IVPUSH Q8H PRN PRN Reason: Nausea and Vomiting Sodium Chloride (0.9 % Sodium Chloride Flush 3 Ml Syringe) 3 ml IVFLUSH QSHIFT [facility] Last Admin: 01/19/24 08:20 Dose: 3 ml Documented By: KRISTA Labs 01/19/24 06:17 01/19/24 06:17 Labs: Laboratory Results - last 24 hr 01/19/24 06:17 MCV 89.2 MCH 31.3 MCHC 35.0 RDW 13.0 Plt Count 174 MPV 9.2 L Absolute Nucleated RBC 0.000 Nucleated RBC % (auto) 0.0 Anion Gap 12 Estim Creat Clear Calc 68.0 Estimated GFR 57 Random Glucose 102 Calcium 9.5 Assessment and Plan (1) Embolic stroke: Status: Acute (2) Facial droop: Status: Acute (3) Acute dyspnea: Status: Acute (4) Atrial fibrillation with rapid ventricular response: Status: Acute Plan Pt is a 68-year-old male with a PMH significant for?paroxysmal AFib no longer taking Eliquis or Multaq, HLD, and peripheral neuropathy who presents to the ED with?left-sided facial droop and drooling since earlier this morning. Pt will be admitted to the hospital for treatment and further evaluation of left-sided facial droop concerning for CVA versus TIA and AFib with RVR secondary to medication noncompliance. Left-sided facial droop resolving, No other deficits noted Non-compliant with Eliquis, CTA showing some atherosclerosis CT of head and negative for acute hemorrhage or mass effect, MRI showing acute stroke in Continue atorvastatin Started Eliquis, DC Aspirin Echocardiogram with bubble study PT/OT evaluation Neurology input appreciated Monitor on telemetry AFib with RVR Load with IV Digoxin for now Increased metoprolol to 50 mg p.o. Q 6 Cardiology consult, add Digoxin if needed, in 4-6 weeks follow up for cardioversion Monitor on telemetry Full Code DVT Prophylaxis: On Eliquis Pt will require a hospitalization overnight for treatment of?left-sided facial droop concerning for CVA as well as AFib with RVR . Patient will require additional imaging and workup, close monitoring of cardiac function, Echo and PT. Quality Stroke Does the patient have a stroke diagnosis?: No VTE Prior VTE?: No VTE Risk Level:: Medical - moderate - high VTE Device Contraindication: Treatment Not Indicated VTE Drug Contraindication: N/A - Med Ordered
--- NOTE | 2024-01-19 15:35 | MHC.CM.PN ---
EMR reviewed and per MD rounds, pt is not medically cleared for discharge due to management of A. fib w/ RVR/rate control.
[2024-01-19] MEDS: Digoxin 0.5 MG/2 ML AMPUL 0.25 MG IVPUSH ×2 (16:45→21:45)
[2024-01-19] MEDS: Atorvastatin Calcium 40 MG TABLET PO (21:45)
[2024-01-20] VITALS: BP 126/92; PULSE 74; RESP 20; TEMP 36.6; O2SAT 96
[2024-01-20 04:00] VITALS: BP 109/71; PULSE 67; RESP 20; TEMP 36.5; O2SAT 97
[2024-01-20 07:16] LABS: Anion Gap 13 (12-20); Blood Urea Nitrogen 21 mg/dL (9-16); Calcium 9.7 mg/dL (8.4-10.2); Carbon Dioxide 23 mmol/L (22-29); Chloride 107 mmol/L (96-108); Creatinine Clr Calc Pharmacy 69.7; Estimated Glomerular Filt Rate 59; Glucose Random 102 mg/dL (60-115); Potassium 4.3 mmol/L (3.3-5.1); Sodium 139 mmol/L (135-145)
[2024-01-20 07:21] LABS: Digoxin 0.9 ng/mL (0.8-2.0)
[2024-01-20 08:00] VITALS: BP 135/73; PULSE 74; RESP 18; TEMP 36.7; O2SAT 96
[2024-01-20] MEDS: Magnesium Oxide 400 MG TABLET PO (08:21)
[2024-01-20] MEDS: Cyanocobalamin (Vitamin B-12) 1,000 MCG TABLET 1000 MCG PO (08:21)
[2024-01-20] MEDS: Apixaban 5 MG TABLET PO (08:21)
[2024-01-20] MEDS: Metoprolol Succinate ER 50 MG TAB.ER.24H 150 MG PO (08:21)
[2024-01-20] MEDS: Acetaminophen 325 MG TABLET 650 MG PO (08:23)
[2024-01-20] MEDS: 0.9 % Sodium Chloride Flush 3 ML SYRINGE IVFLUSH (08:25)
[2024-01-20] MEDS: Sacubitril/Valsartan 24/26 1 TAB TABLET PO (11:30)
--- NOTE | 2024-01-20 11:43 | PM.PNCARD ---
Subjective Subjective Date of Service: 01/20/24 Interval history: Seen examined at bedside. ECHO showed moderate LV dysfunction. He has been started on Eliquis. Physical Exam Vital Signs: Last Vital Signs Temp 98.0 F 01/20/24 08:00 Pulse 74 01/20/24 08:00 Resp 18 01/20/24 08:00 BP 135/73 01/20/24 08:00 Pulse Ox 96 01/20/24 08:00 O2 Del Method Room Air 01/20/24 08:00 BMI result Body Mass Index 35.5 GENERAL APPEARANCE: in no acute distress, pleasant. NECK: no carotid bruit, no jugular venous distention. SKIN: no suspicious lesions, warm and dry. HEART: no murmurs, irregular rate and rhythm. LUNGS: clear to auscultation bilaterally. ABDOMEN: soft, nontender. EXTREMITIES: no edema. PERIPHERAL PULSES: equal. NEUROLOGIC: No gross deficits, AAO X 3 Objective Labs and Meds 01/19/24 06:17 01/20/24 06:37 Lab results: Laboratory Results - last 24 hr 01/20/24 06:37 Sodium 139 Potassium 4.3 Chloride 107 Carbon Dioxide 23 Anion Gap 13 BUN 21 H Creatinine 1.23 Estim Creat Clear Calc 69.7 Estimated GFR 59 Random Glucose 102 Calcium 9.7 Digoxin 0.9 Progress Note: A&P Assessment and plan (1) Embolic stroke: Status: Acute (2) Atrial fibrillation with rapid ventricular response: Status: Acute (3) Cardiomyopathy: Status: Acute Plan [age] year gentleman presenting for acute CVA and AFib with RVR. He was noncompliant with Eliquis. He has recovered well from the stroke at this stage. Continues to be in persistent atrial fibrillation. His echocardiography has shown biventricular dysfunction with moderate LV and mild RV dysfunction. He is rate controlled at this stage with digoxin and metoprolol. Clinically improving. Added Entresto. Detailed discussion with him and his . He is going to take Eliquis regularly. He will need LUIS ANGEL cardioversion in 4-6 weeks. He will be referred to EP for ablation in the future. Thank you for allowing me to participate in the care of your patient. Please feel free to contact me if you have any questions. Time Spent With Patient Time: Total time managing care of this patient today ____ minutes. Progress Note: Quality Stroke Does the patient have a stroke diagnosis?: No Procedures Date of Service Date of Service: 01/20/24
--- NOTE | 2024-01-20 11:44 | P.DS_ITS ---
DS: Providers Provider Date of Service: 01/20/24 Date of admission: 01/17/24 14:15 Date of discharge: 01/20/24 Primary care physician: Gabe Warren MD Consults: 01/17/24 14:20 Consult to Neurology Routine Consulting Provider: [facility] Reason for consultation: Facial droop, ?CVA vs TIA 01/17/24 14:31 Consult to Cardiology Routine Consulting Provider: [facility] Reason for consultation: AFib w/RVR, non compliant w/Eliquis or Multaq DS: Diagnosis Discharge Diagnosis (1) Embolic stroke: Status: Acute (2) Facial droop: Status: Acute (3) Acute dyspnea: Status: Acute (4) Atrial fibrillation with rapid ventricular response: Status: Acute (5) Cardiomyopathy: Status: Acute (6) Hyperlipidemia: Status: Acute DS: Summary Hospital Course Hospital Course: Admission note HPI Pt is a 68-year-old male with a PMH significant for?paroxysmal AFib no longer taking Eliquis or Multaq, HLD, and peripheral neuropathy who presents to the ED with?left-sided facial droop and drooling since earlier this morning. Patient reports has been experiencing shortness of breath for the past 1-2 months worse the past 2 days. Patient reports difficulty breathing and shortness of breath was so bad last night was having difficulty sleeping. Also experiencing a minor, sharp upper abdominal/lower chest pain. During breakfast this morning at around 8:30 noticed he was drooling food and drink out of the left side of his mouth. noted left-sided facial droop and some mumbling when patient pointed this out to her. Pt's timeline of last known well time unclear: reported to this provider last drink prior to breakfast was some water at 1:00 when he got up to go to the bathroom, but reported to ED clinician he drank coffee before breakfast at 7:45 without difficulty. Patient denies headache or acute vision changes. No difficulty word finding or fogginess in thinking. Denies new or worsening numbness or tingling in extremities. No hemiparesis. No difficulty grasping or holding onto objects. No chest pressure or palpitations. Patient stopped taking his home medications around 5-6 months ago, including Eliquis and Multaq for AFib. Patient reports he did not think that he needed them or that he had AFib. States every time he came to get an EKG it never showed atrial fibrillation. However, patient had Holter monitor in 08/2022 which found intermittent episodes of AFib with total burden of 13.2% with longest episode lasting 15 hours 53 minutes with fastest heart rate of 200 beats per minute. In the ED pt was tachycardic up to 156 and hypertensive up to 167/104. Labs were significant for ALT 56, BNP 1 784, lipid panel elevated at triglycerides 326, cholesterol 259, and LDL at 146. No leukocytosis. No significant electrolyte abnormalities. Stable H&H. CXR showed mild cardiomegaly, new when compared to prior from 2019. Tested negative for flu, RSV, COVID. CT of head negative for acute intracranial hemorrhage or mass effect. CTA of head found no acute intracranial large vessel occlusion, but showed minimal scattered nonocclusive calcific atherosclerosis of internal carotid arteries. CTA of neck showed no occlusions or stenosis of cervical carotid and vertebral artery systems, but did show nonocclusive mixed calcific and noncalcific non ulcerative plaque within left carotid bulb. Pt was treated with diltiazem 10 mg IV, metoprolol 25 p.o., and aspirin. ED contacted Neurology but given patient's low NIH score of 1, decided against giving TNK. Pt will be admitted to the hospital for treatment and further evaluation of left-sided facial droop concerning for CVA versus TIA and AFib with RVR secondary to medication noncompliance. Hospital course The patient was admitted for evaluation of acute Left-sided facial droop as a result of acute stroke within the right insular cortex and within the right boswell radiata based on MRI findings. The facial droop resolved with No other deficits noted. He was not compliant with Eliquis. Presented with Afib w RvR. CTA showing some atherosclerosis. CT of head and negative for acute hemorrhage or mass effect, MRI showing acute stroke in right insular cortex and within the right boswell radiata. He was started Eliquis, Atorvastatin. Echocardiogram with bubble study showed cardiomypathy with decreased EF between 30-35%. PT/OT evaluated the patient and felt he was doing good enough to be discharged home. Neurology evaluated the patient and recommended medical management and full anticoagulation. He was also treated for AFib with RVR as he recieved IV and PO Metoprolol and Loaded with IV Digoxin with good response as his heart rate controlled in 80- 90s. Cardiology consulted and recommended to continue Eliquis and follow in 4-6 weeks for cardioversion if needed. Discharge plan Start Metoprolol XL and Digoxin to control your heart rate Start Eliquis as blood thinner to avoid stroke Entresto to help heart function recovery Atorvastatin for elevated cholesterol level Follow with Cardiology outpatient as scheduled Time Attestation Discharge Coordination Time (in mins): 46 Quality: Safe Use of Opioids Does Pt have an Active Cancer Diagnosis on the Problem List?: No Quality: Stroke Does the patient have a stroke diagnosis?: Yes Reason for No Anti-thrombotic at DC: Not indicated Reason for No Anticoagulant at DC: N/A - Med Ordered Reason Not Initiating IV-Tpa: Not indicated Reason for No Anti-thrombotic by Day Two: Not indicated Reason for No Statin at DC: N/A - Med Ordered Physical Exam Vital Signs: Vital Signs: Last Vital Signs Temp 98.0 F 01/20/24 08:00 Pulse 74 01/20/24 08:00 Resp 18 01/20/24 08:00 BP 135/73 01/20/24 08:00 Pulse Ox 96 01/20/24 08:00 O2 Del Method Room Air 01/20/24 08:00 BMI result Body Mass Index 35.5 Const: Other: Constitutional : Awake, interactive, not in distress Neck : Normal inspection, Supple Cardiovascular : irregular irregular, no JVP, no lower extremity edema Respiratory : good bilateral air entry, no crackles, wheezes or rhonchi Gastrointestinal: soft, lax, Normal bowel sounds, Non tender Skin : Warm, Dry Neurological : Alert & oriented x3, No focal deficit , no facial droop, CN 2-12 within normal DS: Data Data Completed and Pending Labs on day of discharge: Laboratory Results - last 24 hr 01/20/24 06:37 Sodium 139 Potassium 4.3 Chloride 107 Carbon Dioxide 23 Anion Gap 13 BUN 21 H Creatinine 1.23 Estim Creat Clear Calc 69.7 Estimated GFR 59 Random Glucose 102 Calcium 9.7 Digoxin 0.9 Imaging Chest x-ray: Radiologist's impression: ITS Impressions Chest X-Ray 01/17/24 11:01 IMPRESSION: Mild cardiomegaly, new when compared to the prior examination. Electronically signed by: Tam Adam MD 01/17/2024 12:01 PM [facility] [place] 01/17/24 11:01 IMPRESSION: No acute intracranial hemorrhage or mass effect. This critical result was discussed with Dr. Sung at 11:25 AM on 01/17/2024. It was ascertained that the content and urgency of the report was understood at the time of direct communication. Electronically signed by: Tam Adam MD 01/17/2024 11:27 AM EST RP Head/Neck CTA 01/17/24 11:14 IMPRESSION: IV contrast enhanced CT the head: *No acute intracranial abnormalities. No acute infarcts or intracranial hemorrhage. CT angiography head: *No intracranial large vessel occlusions. *Minimal scattered nonocclusive calcific atherosclerosis of the cavernous portions of the internal carotid arteries. CT angiography neck: *No occlusions or stenoses of the cervical carotid and vertebral artery systems. *Nonocclusive eccentric mixed calcific and noncalcific nonulcerative plaque within the left carotid bulb. Patent right carotid bulb. *Multilevel chronic spondylosis of the cervical spine. Status post C4-C5 interbody fusion. Status post C5-C6 interbody device placement. No gross interbody osseous bridging at C5-C6. Electronically signed by: Nate Bain MD 01/17/2024 11:51 AM EST RP Brain MRI 01/17/24 15:00 IMPRESSION: There is a small subacute infarct within the right insular cortex. There are small subacute infarcts within the right boswell radiata. This critical result was discussed with Corey BILLINGS at 9:23 PM on 01/17/2024 and it was ascertained that the content and urgency of the report was understood at the time of direct communication. Electronically signed by: Partha Louis DO 01/17/2024 09:23 PM EST RP Discharge Plan Discharge Anticipated Discharge Date/Time: 01/20/24 11:38 Patient Disposition: Home, Self-Care Discharge Diagnosis: ACute stroke Atrial fibrillation Referrals: Gabe Warren MD [Primary Care Provider] - 1 Week Discharge Medications: New Eliquis 5 mg Tablet 5 mg PO BID Qty: 180 0RF atorvastatin 40 mg Tablet 40 mg PO BEDTIME Qty: 90 0RF metoprolol succinate 50 mg Tablet Extended Release 24 Hr 150 mg PO DAILY Qty: 90 1RF Protocol: Hold for SBP/HR < HOLD for SBP < : 90 HOLD for HR < : 60 digoxin 125 mcg (0.125 mg) Tablet 0.125 mg PO MoWeFr Qty: 30 0RF Protocol: Hold for HR <: HOLD for HR < : 60 Entresto 24-26 mg Tablet 1 tab PO BID Qty: 60 0RF Protocol: Hold for SBP< HOLD for SBP < : 90 Continued levalbuterol tartrate 45 mcg/actuation HFA aerosol inhaler 2 puff inhalation Q4H PRN (Reason: shortness of breath) cyanocobalamin (vitamin B-12) 1,000 mcg Tablet 1,000 mcg PO DAILY magnesium oxide 400 mg (241.3 mg magnesium) Tablet 400 mg PO DAILY omega 0-umd-otk-fish oil [Fish Oil] 300-1,000 mg Capsule,Delayed Release(Dr/Ec) 1 cap PO DAILY Discharge Orders: Discharge Order (Routine); Ordered 01/20/24 Ordered By: Yesi El Diet: Low salt diet Activity on Discharge: As tolerated Stand Alone Forms: Patient Portal Discharge page Print Language: Iranian Care Plan Goals: Start Metoprolol XL and Digoxin to control your heart rate Start Eliquis as blood thinner to avoid stroke Entresto to help heart function recovery Atorvastatin for elevated cholesterol level Follow with Cardiology outpatient as scheduled Health Concerns: Acute stroke Heart failure Atrial fibrillation Plan of Treatment: Blood thinner, rate control medications, cardiology follow up Assessment: as above
--- NOTE | 2024-01-20 11:47 | MHC.CM.PN ---
Patient has been medically cleared for dc to home today, self care. Last IMM addressed on 01/18/2024.
--- NOTE | 2024-01-21 15:26 | MHC.STROKE ---
01/19/24 Late entry Confirmed with GREGORY Wells that patient passed bedside swallow evaluation prior to medication administration. Documentation was done late by RN
[2024-01-22 16:30] LABS: INR Whole Blood 1.1 (0.9-1.1); Prothrombin Time Whole Blood 12.8 sec (11.1-13.5)
== END 2024-01-20 13:13 | disposition home or self-care (01) | DRG 65 ==
LOC: HO.ED 11:50 → HO.EDOVER 14:40 → HO.IMC 16:41
PROVIDERS: Admitting Provider Student in an Organized Health Care Education/Training Program; Emergency Provider Emergency Medicine; PCP Family Medicine; Visit Provider Student in an Organized Health Care Education/Training Program
DX: I63.131 Cerebral infarction due to embolism of right carotid artery (principal); I48.19 Other persistent atrial fibrillation; R29.810 Facial weakness; J45.20 Mild intermittent asthma, uncomplicated; G62.9 Polyneuropathy, unspecified; N40.0 Benign prostatic hyperplasia without lower urinary tract symptoms; I35.1 Nonrheumatic aortic (valve) insufficiency; R29.700 NIHSS score 0; Z20.822 Contact with and (suspected) exposure to COVID-19; T45.516A Underdosing of anticoagulants, initial encounter; T50.916A Underdosing of multiple unspecified drugs, medicaments and biological substances, initial encounter; Z91.128 Patient's intentional underdosing of medication regimen for other reason; Z87.891 Personal history of nicotine dependence; Z79.899 Other long term (current) drug therapy
CPT/HCPCS: 0241U; 36415; 70450; 70496; 70498; 70551; 71045; 80048; 80061; 80076; 80162; 82803; 83036; 83735; 83880; 84484; 85025; 85027; 85610; 85730; 93005; 93306; 97161; 97165; 99285; J1160; Q9957; Q9967

== ENCOUNTER → 2024-01-17 14:15 | Outpatient (BNV) | payer MEDICARE, SELFPAY | PROVIDERS: Admitting Provider Student in an Organized Health Care Education/Training Program; Emergency Provider Emergency Medicine; PCP Family Medicine; Visit Provider Internal Medicine | DX: I48.91 Unspecified atrial fibrillation (principal); I63.9 Cerebral infarction, unspecified | CPT/HCPCS: 93010; 99223; 99233 ==

== ENCOUNTER → 2024-01-17 14:15 | Outpatient (BNV) | payer MEDICARE, SELFPAY | PROVIDERS: Admitting Provider Student in an Organized Health Care Education/Training Program; Emergency Provider Emergency Medicine; PCP Family Medicine; Visit Provider Psychiatry & Neurology Neurology | DX: I63.131 Cerebral infarction due to embolism of right carotid artery (principal) | CPT/HCPCS: 99222 ==

== ENCOUNTER → 2024-01-17 14:15 | Outpatient (BNV) | payer MEDICARE, SELFPAY | PROVIDERS: Admitting Provider Student in an Organized Health Care Education/Training Program; Emergency Provider Emergency Medicine; PCP Family Medicine; Visit Provider Student in an Organized Health Care Education/Training Program | DX: I63.131 Cerebral infarction due to embolism of right carotid artery (principal); R29.810 Facial weakness; R06.00 Dyspnea, unspecified; I48.91 Unspecified atrial fibrillation; I42.9 Cardiomyopathy, unspecified; E78.5 Hyperlipidemia, unspecified | CPT/HCPCS: 99223; 99232; 99239 ==

== ENCOUNTER 2024-01-26 13:56 | Outpatient (AMB) | payer MEDICARE, SELFPAY ==
--- NOTE | 2024-01-26 14:03 | A.OFFPC_ITS ---
Vital Signs 01/26/24 14:05 Height 5 ft 8 in Weight 232 lb BMI 35.3 BP 102/60 Blood Pressure Location Rt brachial Position Sitting Respiration 16 Pulse 86 Pulse Source Pulse Oximeter Temp 97.5 F Temp Source Oral Pulse Oximetry (%) 97 Oxygen Delivery Method Room Air Intake Visit Reasons: Tmc /A fib Intake Note: tcm Allergies No Known Allergies Allergy (Verified 01/26/24 14:04) Tobacco use date assessed: 03/18/23 Dental Screening Dental Screen Date: 12/17/22 HPI Tmc /A fib HPI Details Patient with a history of paroxysmal atrial fibrillation was admitted to [facility] on 01/17/2024 for L facial droop. He had discontinued his Eliquis and Multaq. He was found to be in AFib with RVR on presentation. CT of head negative for acute intracranial hemorrhage or mass effect. CTA of head found no acute intracranial large vessel occlusion, but showed minimal scattered nonocclusive calcific atherosclerosis of internal carotid arteries. CTA of neck showed no occlusions or stenosis of cervical carotid and vertebral artery systems, but did show nonocclusive mixed calcific and noncalcific non ulcerative plaque within left carotid bulb. Pt was treated with diltiazem 10 mg IV, metoprolol 25 p.o., and aspirin. ED contacted Neurology but given patient's low NIH score of 1, decided against giving TNK. Pt was admitted and MRI showed acute stroke within the right insular cortex and within the right boswell radiata. He was started Eliquis, Atorvastatin. Echocardiogram with bubble study showed cardiomypathy with decreased EF between 30-35%. Also started on Entresto to aid in her functional recovery. PT/OT evaluated the patient and felt he was doing good enough to be discharged home. Neurology evaluated the patient and recommended medical management and full anticoagulation. He was also treated for AFib with RVR as he recieved IV and PO Metoprolol and Loaded with IV Digoxin with good response as his heart rate controlled in 80- 90s. Cardiology consulted and recommended to continue Eliquis and follow in 4-6 weeks for cardioversion if needed. Discharged 01/20/2024 Acute stroke Heart failure Atrial fibrillation TCM TCM Information Date of Discharge 01/19/24 Discharged From [facility] Interactive Contact Date (Reference documentation from this date) 01/26/24 [facility] Medical History Afib Arthritis of right acromioclavicular joint Asthma, mild intermittent, well-controlled Surgical History History of fusion of cervical spine History of repair of laceration History of carpal tunnel release Family History Father Dementia Mother CHF (congestive heart failure) Hypertension Brother Afib Son In good health Daughter In good health Daughter In good health Sister No problems noted. Social History Household Members: Spouse Housing: House Do you presently have visiting nurse or other home services: No Alcohol intake: current Alcohol intake frequency: 0-2 drinks per day Alcohol type: beer Patient Tobacco Use Status: Former Tobacco user Years Smoked: 15 e-Cigarette/Vaping Use: Never Used Second Hand Smoke Exposure: No service: No Current occupational status: retired Current occupational exposures/hazards: No Cognitive needs: No Hearing needs: No Vision needs: Yes (wears glasses) Questionnaire PHQ-9 Over the last 2 weeks, how often have you been bothered by any of the following problems? 2. Feeling down, depressed, or hopeless: not at all 3. Trouble falling or staying asleep, or sleeping too much: nearly every day 4. Feeling tired or having little energy: nearly every day 5. Poor appetite or overeating: not at all 6. Feeling bad about yourself - or that you are a failure or have let yourself or your family down: not at all 7. Trouble concentrating on things, such as reading the newspaper or watching television: not at all 8. Moving or speaking so slowly that other people could have noticed. Or the opposite - being so fidgety or restless that you have been moving around a lot more than usual: not at all 9. Thoughts that you would be better off or of hurting yourself in some way: not at all Source: Developed by Drs. Delano Thibodeaux, Toma Del Rosario, Jon Pan and colleagues, with an educational ronn from [employer]. Thrive Questionnaire Date Thrive assessed: 01/18/24 I am a: Patient What is your living situation today?: I have a steady place to live Within the past 12 months, did the food you bought not last and you didn't have the money to get more?: Never true Within the past 12 months, did you worry whether your food would run out before you got money to buy more?: Never true Do you have trouble paying for medicines?: No Do you have trouble getting transportation to medical appointments?: No Do you have trouble paying your heating and electricity bill?: No Do you have trouble taking care of your child, family member or friend?: No Do you have trouble with day-to-day activities such as bathing, preparing meals, shopping, managing finances, etc.?: No Are you currently unemployed and looking for a job?: No Are you interested in more education?: No Please select the resources that you would like help with: None Currently or been in a relationship where the following occur: No concerns reported THRIVE Score: 0 AUDIT C Alcohol Use Questionnaire (AUDIT-C) 1. How often do you have a drink containing alcohol?: 2-3 times a week 2. How many drinks containing alcohol do you have on a typical day when you are drinking?: 1 or 2 3. How often do you have six or more drinks on one occasion?: Monthly Total Score: 5 JOSÉ MIGUEL-7 AMB Questionnaire JOSÉ MIGUEL-7 Date JOSÉ MIGUEL - 7 assessed: 12/17/22 Feeling nervous, anxious, or on edge: 0 = Not at all Not being able to stop or control worryin = Not at all Worrying too much about different things: 0 = Not at all Trouble relaxin = Not at all Being so restless that it is hard to sit still: 0 = Not at all Becoming easily annoyed or irritable: 0 = Not at all Feeling afraid as if something awful might happen: 0 = Not at all Total JOSÉ MIGUEL-7 score (0-4 normal; 5-9 mild; 10-14 moderate; 15-21 severe): 0 Source: Developed by Drs. Delano Thibodeaux, Toma Del Rosario, Jon Pan and colleagues, with an educational ronn from [employer]. Review of Systems Const Denies chills, Denies fatigue, Denies fever(s), Denies headache(s) and Denies weakness ENT Denies dizziness and Denies headache(s) Card Denies dyspnea Resp Denies cough, Denies dyspnea, Denies wheezing and Denies other (shortness of breath) Musc Denies numbness and Denies tingling Neuro Denies dizziness, Denies headache(s), Denies numbness, Denies tingling and Denies weakness Psych Denies anxiety and Denies depression Endo Denies fatigue Aller/Immun Denies wheezing Physical exam (Primary Care) Vital Signs: Last Vital Signs Temp 97.5 F 01/26/24 14:05 Pulse 86 01/26/24 14:05 Resp 16 01/26/24 14:05 BP 102/60 01/26/24 14:05 Pulse Ox 97 01/26/24 14:05 Oxygen Delivery Method Room Air 01/26/24 14:05 BMI result Body Mass Index 35.3 Tobacco/Smoking Status: Tobacco use Status Tobacco use date assessed 03/18/23 01/26/24 14:09 Patient Tobacco Use Status Former Tobacco user 01/26/24 14:09 e-Cigarette/Vaping Use Never Used 01/26/24 14:09 Thrive Assessment: Date of Thrive Assessment Date Thrive assessed 01/18/24 01/26/24 14:09 Currently or been in a relationship where the following occur: No concerns reported Const General: well developed; No acute distress Nutritional Appearance: well nourished Orientation/consciousness: patient oriented x3 HENMT Head: Yes normocephalic and Yes atraumatic Eyes General: appearance normal, both eyes and all related structures Pupils: Equal, round and reactive pupils present EOM: EOMs intact bilaterally Resp Effort & Inspection: normal respiratory effort Auscultation: clear to auscultation bilaterally Cardio Rate: regular rate Rhythm: regular rhythm Heart sounds: S1 normal heart sound present, S2 normal heart sound present, no gallops, no murmurs and no rubs Neuro General: patient oriented x3 and gait normal Cranial nerves: Yes Equal, round and reactive pupils present Psych Affect: normal affect Coding Level of Care Code TCM High MDM <= 7 Days Diagnoses 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 I63.131 Laterality of affected vessel: right Precerebral and cerebral artery: carotid artery Cardiomyopathy I42.9 Atrial fibrillation with rapid ventricular response I48.91 Elevated fasting glucose R73.01 Hyperlipidemia E78.5 Assessment & Plan Assessment & Plan (1) Embolic stroke: Code(s): I63.9 - Cerebral infarction, unspecified Category: Medical Qualifiers: Laterality of affected vessel: right Precerebral and cerebral artery: carotid artery Qualified Code(s): I63.131 - Cerebral infarction due to embolism of right carotid artery Plan: Embolic?stroke?with?left?facial?droop Patient?has?a?history?of?paroxysmal?atrial?fibrillation?and?was?not?taking?Multa q?or Eliquis. Now?on?metoprolol,?digoxin,?Entresto,?Eliquis?and?atorvastatin. Still?has?irregularly?irregular?rhythm?though?rate?controlled. He?is?taking?his?medications?as?prescribed?though?he?is?currently?hoping?get?as? many?of?them?as?can,?as?soon?as?possible. Reviewed?with?patient?that?recently?are?necessary Encouraged?him?to?work?at?a?diet?low?in?salt/sodium,?work?at?a?diet?low?in?sugar s?and?starches?and?also?saturated?fats?and?cholesterol. Encouraged?weight He?has?an?appointment?with?cardiology?for?cardioversion He?has?an?appointment?for?follow-up?with?Neurology Will?check?labs?including?repeat?lipids?and?we?discussed?a?goal?of?less?70?for ?LDL?cholesterol. Will?also?repeat?BNP (2) Cardiomyopathy: Code(s): I42.9 - Cardiomyopathy, unspecified Category: Medical Plan: As?above (3) Atrial fibrillation with rapid ventricular response: Code(s): I48.91 - Unspecified atrial fibrillation Category: Medical Plan: As?above (4) Elevated fasting glucose: Code(s): R73.01 - Impaired fasting glucose Category: Medical Plan: History?of?pre?diabetes Checking?labs?so?will?add?A1c Will?discuss?with?patient?had?close?follow-up?ointment (5) Hyperlipidemia: Code(s): E78.5 - Hyperlipidemia, unspecified Category: Medical Plan: As?above Orders: Orders Comprehensive [place]. Panel Fast Today I48.91 - Unspecified atrial fibrillation, Z00.00 - Encounter for general adult medical examination without abnormal findings UA and rflx microscopic Today I48.91 - Unspecified atrial fibrillation, Z00.00 - Encounter for general adult medical examination without abnormal findings Microalbumin, Random (w Creat) Today I10 - Essential (primary) hypertension, I48.91 - Unspecified atrial fibrillation B Type Natriuretic Peptide Today I42.9 - Cardiomyopathy, unspecified, I50.9 - Heart failure, unspecified Lipid Panel Today I63.131 - Cerebral infarction due to embolism of right carotid artery, Z00.00 - Encounter for general adult medical examination without abnormal findings Hemoglobin A1c Today R73.01 - Impaired fasting glucose TSH reflex Free T4 Today I48.91 - Unspecified atrial fibrillation, Z00.00 - Encounter for general adult medical examination without abnormal findings
[2024-01-26 14:05] VITALS: BP 102/60; PULSE 86; RESP 16; TEMP 36.4; O2SAT 97; BMI 35.3
== END 2024-01-26 14:46 | disposition home or self-care (01) ==
PROVIDERS: PCP Family Medicine; Visit Provider Family Medicine
DX: I42.9 Cardiomyopathy, unspecified (principal); I63.131 Cerebral infarction due to embolism of right carotid artery; I48.91 Unspecified atrial fibrillation; R73.01 Impaired fasting glucose; E78.5 Hyperlipidemia, unspecified

== ENCOUNTER → 2024-01-26 13:56 | Outpatient (BNVA) | payer MEDICARE, SELFPAY | PROVIDERS: PCP Family Medicine; Visit Provider Family Medicine | DX: I63.131 Cerebral infarction due to embolism of right carotid artery (principal); I42.9 Cardiomyopathy, unspecified; I48.91 Unspecified atrial fibrillation; E78.5 Hyperlipidemia, unspecified; R73.01 Impaired fasting glucose | CPT/HCPCS: 99496 ==

== ENCOUNTER 2024-02-04 07:36 | Outpatient (REF) | payer MEDICARE, SELFPAY ==
[2024-02-04 07:53] LABS: MANUAL DIFF FLAG NO
[2024-02-04 08:28] LABS: Basophils Absolute Auto 0.1 X10*3/uL (0.0-0.2); Eosinophils Absolute Auto 0.1 X10*3/uL (0.0-0.4); Eosinophils Percent Auto 2.3 % (0-4); Hematocrit 47.5 % (42.0-52.0); Hemoglobin 16.9 g/dl (14.0-18.0); Imm Gran Abs Auto 0.02 X10*3/uL (0.00-0.03); Imm Gran Pct Auto 0.3 % (0.0-0.4); Lymphocytes Percent Auto 32.3 % (20-40); Mean Corpuscular HGB Conc 35.6 g/dl (31.0-36.0); Mean Platelet Volume 9.4 fL (9.4-12.4); Monocytes Absolute Auto 0.5 X10*3/uL (0.1-1.2); Monocytes Percent Auto 8.4 % (2-11); Neutrophils Absolute Auto 3.4 x10*3/uL (2.0-8.3); Neutrophils Percent Auto 55.7 % (45-73); Platelet Count 180 X10*3/uL (160-400); Red Blood Count 5.46 X10*6/uL (4.60-5.80); Red Cell Distribution Width 13.1 % (11.0-16.0); White Blood Count 6.1 X10*3/uL (4.8-10.8)
[2024-02-04 08:36] LABS: Estimated Average Glucose 120 mg/dL; Hemoglobin A1C 165.1802 umol/L; Hemoglobin A1c % 5.8 % (<6.0); Total Hemoglobin (HGBA1C) 4182.0837 umol/L
[2024-02-04 08:43] LABS: Appearance Urine Clear; Color Urine Yellow; Glucose Urine UA Negative (Negative); Leukocyte Esterase Urine Negative (Negative); Nitrite Urine Negative (Negative); PH 5.5 (5.0-9.0); Specific Gravity - Urine 1.025 (1.005-1.025); Urine Blood Negative (Negative); Urine Ketones Negative (Negative); Urine Protein Negative (Neg-Trace)
[2024-02-04 08:44] LABS: B Type Natriuretic Peptide 198 pg/mL (<100)
[2024-02-04 08:46] LABS: Alanine Aminotransferase 54 U/L (0-40); Albumin Level 4.3 g/dL (3.5-5.0); Alkaline Phosphatase 49 U/L (39-117); Anion Gap 10 (12-20); Aspartate Amino Transferase 32 U/L (5-37); Bilirubin Total 0.6 mg/dL (0.0-1.0); Blood Urea Nitrogen 19 mg/dL (9-16); Calcium 8.9 mg/dL (8.4-10.2); Carbon Dioxide 25 mmol/L (22-29); Chloride 111 mmol/L (96-108); Cholesterol 137 mg/dL (<200); Estimated Glomerular Filt Rate > 60; Glucose Fasting 106 mg/dL (60-99); HDL Cholesterol 42 mg/dL (>40); LDL Cholesterol Calculated 70 mg/dL (<100); Potassium 4.3 mmol/L (3.3-5.1); Sodium 142 mmol/L (135-145); Triglycerides 128 mg/dL (<150)
[2024-02-04 09:02] LABS: TSH reflex Free T4 0.92 uIU/mL (0.32-4.0)
[2024-02-04 09:20] LABS: Creatinine Urine 125.68 mg/dL; Microalbum/Creatinine Ratio Ur 7.1 ug/mg cr (<30)
== END 2024-02-04 07:37 | disposition home or self-care (01) ==
LOC: HO.LAB 07:36
PROVIDERS: PCP Family Medicine; Visit Provider Family Medicine
DX: Z00.00 Encounter for general adult medical examination without abnormal findings (principal); E78.5 Hyperlipidemia, unspecified; I48.91 Unspecified atrial fibrillation; I50.9 Heart failure, unspecified; I42.9 Cardiomyopathy, unspecified; I63.131 Cerebral infarction due to embolism of right carotid artery; I10 Essential (primary) hypertension; R73.01 Impaired fasting glucose
CPT/HCPCS: 36415; 80053; 80061; 81003; 82043; 82570; 83036; 83880; 84443; 85025

== ENCOUNTER 2024-02-12 14:27 | Outpatient (AMB) | payer MEDICARE, SELFPAY ==
--- NOTE | 2024-02-12 14:28 | MHC.OFFVIS ---
Vital Signs 02/12/24 14:29 Height 5 ft 8 in Weight 231 lb 14.821 oz BMI 35.3 BP 130/72 Blood Pressure Location Lt brachial Position Sitting Pulse 94 Pulse Source Monitor Intake Visit Reasons: 1 year follow-up with ekg Statistician Theoretical Required: No Treasury Accountant: Treasury Accountant Present Allergies No Known Allergies Allergy (Verified 02/12/24 14:32) Medication List - Last Reconciled 02/12/24 by ANGELITA Garcia apixaban (Eliquis) 5 mg PO BID atorvastatin 40 mg PO BEDTIME cyanocobalamin (vitamin B-12) 1,000 mcg PO DAILY digoxin 0.125 mg See Protocol PO MoWeFr levalbuterol tartrate 45 mcg/actuation 2 puffs inhalation Q4H PRN magnesium oxide 400 mg PO DAILY metoprolol succinate ER 50 mg See Protocol PO DAILY omega 1-iqb-axv-fish oil 300-1,000 mg (Fish Oil) 1 cap PO DAILY sacubitril-valsartan 24-26 mg (Entresto) 1 tab See Protocol PO BID HPI HPI 1 year follow-up with ekg: Details: Parrish is a 68-year-old male with past medical history of obesity, mild asthma, newer diagnosis of paroxysmal atrial fibrillation, 08/2022, who was on the appropriate medication management. Then this past year he stopped his medications as he believed his heart condition had stabilized. He then had left mouth droop, drooling, shortness of breath and rapid heart palpitations prompting ER evaluation admission for CVA versus TIA, AFib RVR, acute systolic heart failure. He was restarted on rate slowing medications, Eliquis and put on Entresto. He remained in atrial fib at discharge. Today he presents for post hospital follow-up. Today he reports that he was off his medications for about 6 months then finally needed to go to the hospital on 01/17/2024. Since his hospital discharge on 01/20/2024 he says he is feeling much better. He has not had any new neurological symptoms. His prior mouth droop is mostly resolved. He still has a small amount of drooling at times. He is no longer noticing heart palpitations. He says his breathing is almost back to normal. He has no chest pain at rest or with activity. No PND, orthopnea or edema. No presyncope, syncope, falls. He has been doing only light activities. is present. [facility] Medical History Embolic stroke Afib Arthritis of right acromioclavicular joint Asthma, mild intermittent, well-controlled Surgical History History of fusion of cervical spine History of repair of laceration History of carpal tunnel release Family History Father Dementia Mother CHF (congestive heart failure) Hypertension Brother Afib Son In good health Daughter In good health Daughter In good health Sister No problems noted. Social History Household Members: Spouse Housing: House Do you presently have visiting nurse or other home services: No Alcohol intake: current Alcohol intake frequency: 0-2 drinks per day Alcohol type: beer Patient Tobacco Use Status: Former Tobacco user Years Smoked: 15 e-Cigarette/Vaping Use: Never Used Second Hand Smoke Exposure: No service: No Current occupational status: retired Current occupational exposures/hazards: No Cognitive needs: No Hearing needs: No Vision needs: Yes (wears glasses) Review of Systems Const All systems reviewed & are unremarkable except as noted in HPI and below ENT Denies dizziness Card Reports chest pain, Denies chest pain at rest, Denies chest pain with activity, Denies rapid heart rate, Denies pedal edema, Denies edema, Denies leg edema, Denies lightheadedness, Denies palpitations, Reports dyspnea, Denies dyspnea on exertion and Denies orthopnea Resp Denies cough, Reports dyspnea and Denies dyspnea on exertion GI Denies hematochezia and Denies change in stool character Musc Denies abnormal gait, Denies limited range of motion, Denies muscle cramps, Denies muscle weakness, Denies numbness, Denies radiating pain into limb, Denies stiffness and Denies tingling Neuro Denies abnormal gait, Denies dizziness, Denies numbness and Denies tingling Endo Denies palpitations Physical Exam Vital Signs: Last Vital Signs Pulse 94 02/12/24 14:29 BP 130/72 02/12/24 14:29 BMI result Body Mass Index 35.3 Const General: cooperative, healthy appearing, comfortable and no acute distress Orientation/consciousness: patient oriented x3 Neck Neck: Yes normal visual inspection and Yes no JVD Resp Effort & Inspection: normal respiratory effort Auscultation: clear to auscultation bilaterally, no crackles, no rales, no rhonchi and no wheezes Cardio Jugular venous distension: no JVD Rate: regular rate Rhythm: abnormal rhythm Heart sounds: S1 normal heart sound present, S2 normal heart sound present, no murmurs and no rubs Neuro General: patient oriented x3 Extrem General: Yes normal to inspection and No no pedal edema Psych Appearance: grossly normal Mental Status: mental status grossly normal Speech and movement: Normal speech and movement present Office Procedures EKG Details: Today, read by me, atrial fibrillation, incomplete RBBB, rate 94, QTC 450ms [id number], Complete Assessment & Plan Assessment & Plan (1) Atrial fibrillation with RVR: Code(s): I48.91 - Unspecified atrial fibrillation Category: Medical Plan: Newer finding of paroxysmal atrial fibrillation in patient with reports of heart palpitations, 08/2022. A Holter monitor on 08/26/2022 for 5 days showed atrial fibrillation 13.2% of the time. He was initially on diltiazem for heart rate control and put on Eliquis for anticoagulation. He did have breakthrough heart palpitations and was put on Multaq. He then stopped diltiazem due to report of side effects. His echocardiogram from 08/26/2022 showed normal EF, mildly dilated left atrium, mildly dilated ascending aorta 3.9 cm, mild AR. Nuclear stress test 12/02/2022 showed good exercise tolerance, no EKG changes, probably normal myocardial perfusion. His last prior visit with me was 01/16/2023. Then 1 year later on 01/17/2024 he presented to [facility] with mouth droop, drooling, shortness of breath and heart palpitations. He had not taken any of his medications for the previous 6 months. He was treated for CVA versus TIA, atrial fibrillation with RVR, cardiomyopathy/Congestive heart failure. Echocardiogram showed EF 30-35%, mild increase in the RV cavity size and decrease in the RV systolic function, ascending aorta 3.7 cm. He was restarted on rate slowing agents including metoprolol and digoxin. He was started on Eliquis for anticoagulation and Entresto for neurohormonal modulation. Upon discharge he was still in atrial fibrillation. Today he reports he has been feeling well since his hospital discharge. He reports that he was not able to tolerate the metoprolol XL 150 mg daily. He says his blood pressure came way down to the low 100s and he felt lightheaded. Also the Entresto he has been only taking once a day. He has been taking metoprolol XL 50 mg daily. Digoxin 0.125 mg 3 times weekly, Eliquis 5 mg b.i.d. without interruption, Entresto once daily and atorvastatin daily. His EKG today shows atrial fibrillation, incomplete right bundle branch block, rate 94. He has no signs of heart failure on examination. Instructed him to take his Entresto b.i.d.. If his blood pressure allows then increase metoprolol to 50 mg b.i.d.. Plan for cardioversion, following his full 4 weeks of anticoagulation, discussed with him including risks and potential outcomes of the procedure. He is agreeable to proceed. Will arrange with Dr. Wong in the near future. Patient told to hold his metoprolol and digoxin the morning of the procedure. Will plan for cardiology follow-up 1 month post cardioversion. Will plan for a limited echo in the near future to re-evaluate EF. (2) Palpitations: Code(s): R00.2 - Palpitations Category: Medical Plan: As above (3) Shortness of breath: Code(s): R06.02 - Shortness of breath Category: Medical Plan: As above, breathing almost to his baseline. (4) Paroxysmal A-fib: Code(s): I48.0 - Paroxysmal atrial fibrillation Category: Medical Plan: As above - currently persistent (5) Cardiomyopathy: Code(s): I42.9 - Cardiomyopathy, unspecified Category: Medical Plan: New finding of cardiomyopathy in the setting of AFib RVR. He is being treated with rate control then plan for cardioversion. 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 Brain MRI 01/17/2024 shows a small subacute infarct within the right insular cortex, small subacute infarcts within the right boswell radiata. He was evaluated by Neurology. He is back on anticoagulation. Plan Time spent on chart review, documentation, interview and assessment Orders: Orders AMB EKG-In Office Today I48.0 - Paroxysmal atrial fibrillation Cardioversion 2 Weeks I48.19 - Other persistent atrial fibrillation Coding Level of Care Code Est Pt Level 4 (06102) Complex EM visit Add On G2211 Diagnoses Atrial fibrillation with RVR I48.91 Palpitations R00.2 Shortness of breath R06.02 Paroxysmal A-fib I48.0 Cardiomyopathy I42.9 Hospital discharge follow-up Z09 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 I63.131 Precerebral and cerebral artery: carotid artery Laterality of affected vessel: right CPT Codes EKG - CPT: [id number], Complete ([id number]) Time Spent (min) 36
[2024-02-12 14:29] VITALS: BP 130/72; PULSE 94; BMI 35.3
== END 2024-02-12 15:31 | disposition home or self-care (01) ==
PROVIDERS: PCP Family Medicine; Visit Provider Nurse Practitioner Family
DX: I48.91 Unspecified atrial fibrillation (principal); R00.2 Palpitations; R06.02 Shortness of breath; I48.0 Paroxysmal atrial fibrillation; I42.9 Cardiomyopathy, unspecified; Z09 Encounter for follow-up examination after completed treatment for conditions other than malignant neoplasm; I63.131 Cerebral infarction due to embolism of right carotid artery
CPT/HCPCS: 93010; 99214; G2211

== ENCOUNTER → 2024-02-12 14:27 | Outpatient (BNVA) | payer MEDICARE, SELFPAY | PROVIDERS: PCP Family Medicine; Visit Provider Nurse Practitioner Family | DX: I48.0 Paroxysmal atrial fibrillation (principal); E66.9 Obesity, unspecified; R00.2 Palpitations; R06.02 Shortness of breath; I42.9 Cardiomyopathy, unspecified; Z09 Encounter for follow-up examination after completed treatment for conditions other than malignant neoplasm; Z86.73 Personal history of transient ischemic attack (TIA), and cerebral infarction without residual deficits; Z68.35 Body mass index [BMI] 35.0-35.9, adult; Z87.891 Personal history of nicotine dependence | CPT/HCPCS: 93005; 99212 ==

== ENCOUNTER 2024-02-27 11:51 | Day surgery (SDC) | payer MEDICARE, SELFPAY ==
--- NOTE | 2024-02-25 12:07 | HO.ANESPROP2 ---
Documented by User: Carlene Mortensen NP 02/25/24 12:08 HPI - Anesthesia Eval Consult details Narrative: 68yo M for Cardioversion Eliquis for afib PMFSH Active Problems Active Problems: All Active Problems Hospital discharge follow-up (Acute) Cardiomyopathy (Acute) Hyperlipidemia (Acute) Elevated fasting glucose (Acute) Trigger finger (Acute) Screening for prostate cancer (Acute) Screening for colon cancer (Acute) Adult general medical exam (Acute) Hypersomnia (Acute) Paroxysmal A-fib (Acute) Shortness of breath (Acute) Arthritis of right acromioclavicular joint (Acute) Asthma, mild intermittent, well-controlled (Acute) Right shoulder pain (Acute) Generalized arthritis (Acute) BPH w urinary obs/LUTS (Acute) Obesity (BMI 30.0-34.9) (Acute) Well adult exam (Acute) Past Medical History Medical History (Updated 02/27/24 @ 13:23 by Annmarie Barker MD) Embolic stroke Afib Arthritis of right acromioclavicular joint Asthma, mild intermittent, well-controlled Family History Family History Father Dementia Mother CHF (congestive heart failure) Hypertension Brother Afib Son In good health Daughter In good health Daughter In good health Sister No problems noted. Surgical History Surgical History History of fusion of cervical spine History of repair of laceration History of carpal tunnel release Social History Social History Household Members: Spouse Housing: House Do you presently have visiting nurse or other home services: No Alcohol intake: current Alcohol intake frequency: 0-2 drinks per day Alcohol type: beer Patient Tobacco Use Status: Former Tobacco user Years Smoked: 15 e-Cigarette/Vaping Use: Never Used Second Hand Smoke Exposure: No service: No Current occupational status: retired Current occupational exposures/hazards: No Cognitive needs: No Hearing needs: No Vision needs: Yes (wears glasses) Meds Allergies Allergy/AdvReac Type Severity Reaction Status Date / Time No Known Allergies Allergy Verified 02/12/24 14:32 Home Medications ?Medication ?Instructions ?Recorded ?Confirmed ?Last Taken ?Type cyanocobalamin (vitamin B-12) 1,000 mcg PO DAILY 01/17/24 02/27/24 Unknown History 1,000 mcg tablet levalbuterol tartrate 45 2 puff inhalation Q4H PRN 01/17/24 02/27/24 Unknown History mcg/actuation aerosol inhaler shortness of breath magnesium oxide 400 mg (241.3 mg 400 mg PO DAILY 01/17/24 02/27/24 Unknown History magnesium) tablet omega 5-wiy-kzp-fish oil 300 1 cap PO DAILY 01/17/24 02/27/24 Unknown History mg-1,000 mg capsule,delayed release (Fish Oil) metoprolol succinate 50 mg 50 mg PO DAILY 02/12/24 02/27/24 02/25/24 20:00 History tablet,extended release 24 hr Exam Narrative Narrative: EKG 2023 Details: Today, read by me, atrial fibrillation, incomplete RBBB, rate 94, QTC 450ms ECHO 2023 Conclusions: - Normal left ventricular cavity size. There is normal left ventricular wall thickness. The left ventricular systolic function is moderately decreased. The visually estimated ejection fraction is between 30-35%. - Mildly increased right ventricular cavity size. There is mildly decreased right ventricular systolic function. - There is mild dilatation of the ascending aorta measuring 3.70 cm. Assessment and Plan Assessment Anesthesia Assessment: Chart Reviewed Documented by User: Annmarie Barker MD 02/27/24 13:27 HPI - Anesthesia Eval Consult details Narrative: 68yo M for Cardioversion Eliquis for afib. Last dose this morning PMFSH Active Problems Active Problems: All Active Problems Hospital discharge follow-up (Acute) Cardiomyopathy (Acute) Hyperlipidemia (Acute) Elevated fasting glucose (Acute) Trigger finger (Acute) Screening for prostate cancer (Acute) Screening for colon cancer (Acute) Adult general medical exam (Acute) Hypersomnia (Acute) Paroxysmal A-fib (Acute) Shortness of breath (Acute) Arthritis of right acromioclavicular joint (Acute) Asthma, mild intermittent, well-controlled (Acute) Right shoulder pain (Acute) Generalized arthritis (Acute) BPH w urinary obs/LUTS (Acute) Obesity (BMI 30.0-34.9) (Acute) Well adult exam (Acute) TIA Past Medical History Medical History (Updated 02/27/24 @ 13:23 by Annmarie Barker MD) Embolic stroke Afib Arthritis of right acromioclavicular joint Asthma, mild intermittent, well-controlled Family History Family History Father Dementia Mother CHF (congestive heart failure) Hypertension Brother Afib Son In good health Daughter In good health Daughter In good health Sister No problems noted. Family history of problems with anesthesia: No Surgical History Surgical History History of fusion of cervical spine History of repair of laceration History of carpal tunnel release History of Problems with Anesthesia: No Social History Social History Household Members: Spouse Housing: House Do you presently have visiting nurse or other home services: No Alcohol intake: current Alcohol intake frequency: 0-2 drinks per day Alcohol type: beer Patient Tobacco Use Status: Former Tobacco user Years Smoked: 15 e-Cigarette/Vaping Use: Never Used Second Hand Smoke Exposure: No service: No Current occupational status: retired Current occupational exposures/hazards: No Cognitive needs: No Hearing needs: No Vision needs: Yes (wears glasses) Meds Allergies Allergy/AdvReac Type Severity Reaction Status Date / Time No Known Allergies Allergy Verified 02/12/24 14:32 Home Medications ?Medication ?Instructions ?Recorded ?Confirmed ?Last Taken ?Type cyanocobalamin (vitamin B-12) 1,000 mcg PO DAILY 01/17/24 02/27/24 Unknown History 1,000 mcg tablet levalbuterol tartrate 45 2 puff inhalation Q4H PRN 01/17/24 02/27/24 Unknown History mcg/actuation aerosol inhaler shortness of breath magnesium oxide 400 mg (241.3 mg 400 mg PO DAILY 01/17/24 02/27/24 Unknown History magnesium) tablet omega 7-hwz-oxy-fish oil 300 1 cap PO DAILY 01/17/24 02/27/24 Unknown History mg-1,000 mg capsule,delayed release (Fish Oil) metoprolol succinate 50 mg 50 mg PO DAILY 02/12/24 02/27/24 02/25/24 20:00 History tablet,extended release 24 hr Exam Height,Weight and Vital Signs: Height 5 ft 8 in Weight 102.512 kg Vital Signs Temp Pulse Resp BP Pulse Ox O2 Del Method 02/27/24 13:18 98.2 F 108 H 16 121/101 H 97 Room Air Airway Mallampati Class: III TM Dist: >3cm Neck ROM: Full Loose/Missing/Broken Teeth: Yes (Missing teeth back. Denies loose or broken teeth) Heart: Irregularly irregular Lungs: CTAB Assessment and Plan Assessment Anesthesia Assessment: Anesthesia Plan Discussed and Chart Reviewed Final Anesthetic Review Family History of Problems with Anesthesia: No History of Problems with Anesthesia: No NPO: Yes ASA Class: III Final Preanesthetic Review: No Changes in Pt Med Stat, Meds/Allgs Chart Reviewed, Consent Obtained/Reviewed and Anes Risks/Benef Reviewed Patient Risk: Intermediate Procedure Risk: Intermediate Assessment/Block/Sedation in SS: Assess/Block/Sedation-SS Anesthetic Plan Anesthetic Plan: GA Disposition: Standard PACU
[2024-02-27] VITALS (7 sets, daily range): BP systolic 97–121; BP diastolic 61–101; PULSE 64–108; RESP 16–17; TEMP 36.6–36.8; O2SAT 95–98; BMI 34.4
[2024-02-27] MEDS: Lactated Ringers 1,000 ML 100 ML IVCONT (13:52)
--- NOTE | 2024-02-27 14:21 | MHC.SHP ---
Pre-Procedural Eval Section A - 24 Hr Update-Section A only Date of Service: 02/27/24 The patient is an INPATIENT: No Section B - Complete if H&P > 30 days Chief Complaint: Other persistent atrial fibrillation Allergies: Allergies Allergy/AdvReac Type Severity Reaction Status Date / Time No Known Allergies Allergy Verified 02/12/24 14:32 Plan I have reviewed the history and physical and performed a pertinent physical examination on my patient. No changes have occurred unless specified. Time Spent With Patient Time: Total time managing care of this patient today ____ minutes.
--- NOTE | 2024-02-27 14:22 | HO.CARDIVERS ---
Cardioversion Procedure Note Cardioversion Date of Procedure: 02/27/2024 Pre-Op Diagnosis: Atrial fibrillation Post-Op Diagnosis: Sinus rhythm Procedure: After informed consent was obtained, patient was taken to the PACU. The patient was then positioned appropriately. The cardioversion pads were placed in anteroposterior position. Once under anesthesia, 120 joules of synchronized shock was administered. The rhythm converted from atrial fibrillation to sinus rhythm. Patient remained in sinus rhythm after the end of procedure. Complications: None Impression: Successful cardioversion from atrial fibrillation to sinus rhythm.
--- NOTE | 2024-02-27 14:33 | ECG_ITS ---
Test Reason : post cardioversion Blood Pressure : */* mmHG Vent. Rate : 76 BPM Atrial Rate : 76 BPM P-R Int : 162 ms QRS Dur : 102 ms QT Int : 390 ms P-R-T Axes : 49 8 21 degrees QTcB Int : 438 ms Normal sinus rhythm Normal ECG When compared with ECG of 17-Jan-2024 11:02, Sinus rhythm has replaced Atrial fibrillation Vent. rate has decreased by 44 bpm Referred By: Shyla Arriaza Electronically Signed By: SHYLA ARRIAZA
[2024-02-27] MEDS: Amiodarone HCL 200 MG TABLET 400 MG PO (14:56)
== END 2024-02-27 15:43 | disposition home or self-care (01) ==
PROVIDERS: PCP Family Medicine; Visit Provider Internal Medicine
PROC: 5A2204Z Restoration of Cardiac Rhythm, Single (ICD-10-PCS; principal; 2024-02-27 13:30)
DX: I48.19 Other persistent atrial fibrillation (principal); I48.0 Paroxysmal atrial fibrillation; Z79.01 Long term (current) use of anticoagulants; I42.9 Cardiomyopathy, unspecified; I69.892 Facial weakness following other cerebrovascular disease; I63.131 Cerebral infarction due to embolism of right carotid artery; Z87.891 Personal history of nicotine dependence; Z79.899 Other long term (current) drug therapy
CPT/HCPCS: 92960; 93005; J2003; J2704

== ENCOUNTER → 2024-02-27 11:51 | Outpatient (BNV) | payer MEDICARE, SELFPAY | PROVIDERS: PCP Family Medicine; Visit Provider Internal Medicine | DX: R94.31 Abnormal electrocardiogram [ECG] [EKG] (principal) | CPT/HCPCS: 93010 ==

== ENCOUNTER 2024-03-02 09:36 | Outpatient (AMB) | payer MEDICARE, SELFPAY ==
--- NOTE | 2024-03-02 09:45 | MHC.PC.OV ---
Vital Signs 03/02/24 09:51 Height 5 ft 8 in Weight 234 lb 2 oz BMI 35.6 BP 126/70 Blood Pressure Location Lt brachial Position Sitting Respiration 14 Pulse 87 Pulse Source Pulse Oximeter Pulse Oximetry (%) 97 Oxygen Delivery Method Room Air Intake Visit Reasons: f/u chronic conditions Intake Note: f/u on labs and a1c Allergies No Known Allergies Allergy (Verified 03/02/24 09:48) Tobacco use date assessed: 03/18/23 Dental Screening Dental Screen Date: 12/17/22 HPI f/u chronic conditions HPI Details 68 y/o male presents to f/u recent stroke, paroxysmal AFib, labs. Cardioversion 02/27/24. Blood pressure today 126/70, 87p. He is on metoprolol, Entresto. Has an upcoming appt. with Cardiology Labs drawn 02/04/24. A1c 5.8%. Triglycerides 128. TC 137. LDL 70. HDL 42. PFSH Medical History (Updated 02/27/24 @ 13:23 by Annmarie Barker MD) Embolic stroke Afib Arthritis of right acromioclavicular joint Asthma, mild intermittent, well-controlled Surgical History History of fusion of cervical spine History of repair of laceration History of carpal tunnel release Family History Father Dementia Mother CHF (congestive heart failure) Hypertension Brother Afib Son In good health Daughter In good health Daughter In good health Sister No problems noted. Social History Household Members: Spouse Housing: House Do you presently have visiting nurse or other home services: No Alcohol intake: current Alcohol intake frequency: 0-2 drinks per day Alcohol type: beer Patient Tobacco Use Status: Former Tobacco user Years Smoked: 15 e-Cigarette/Vaping Use: Never Used Second Hand Smoke Exposure: No service: No Current occupational status: retired Current occupational exposures/hazards: No Cognitive needs: No Hearing needs: No Vision needs: Yes (wears glasses) Questionnaire Thrive Questionnaire Date Thrive assessed: 03/02/24 I am a: Patient JOSÉ MIGUEL-7 AMB Questionnaire JOSÉ MIGUEL-7 Date JOSÉ MIGUEL - 7 assessed: 12/17/22 Source: Developed by Drs. Delano Thibodeaux, Toma Del Rosario, Jon Pan and colleagues, with an educational ronn from [employer]. Review of Systems Const Denies chills, Denies fatigue, Denies fever(s), Denies headache(s) and Denies weakness ENT Denies dizziness and Denies headache(s) Card Denies dyspnea Resp Denies cough, Denies dyspnea, Denies wheezing and Denies other (shortness of breath) Musc Denies numbness and Denies tingling Neuro Denies dizziness, Denies headache(s), Denies numbness, Denies tingling and Denies weakness Psych Denies anxiety and Denies depression Endo Denies fatigue Aller/Immun Denies wheezing Physical exam (Primary Care) Vital Signs: Last Vital Signs Pulse 87 03/02/24 09:51 Resp 14 03/02/24 09:51 BP 126/70 03/02/24 09:51 Pulse Ox 97 03/02/24 09:51 Oxygen Delivery Method Room Air 03/02/24 09:51 BMI result Body Mass Index 35.6 Tobacco/Smoking Status: Tobacco use Status Tobacco use date assessed 03/18/23 03/02/24 09:54 Patient Tobacco Use Status Former Tobacco user 03/02/24 09:54 e-Cigarette/Vaping Use Never Used 03/02/24 09:54 Thrive Assessment: Date of Thrive Assessment Date Thrive assessed 03/02/24 03/02/24 09:54 Const General: well developed; No acute distress Nutritional Appearance: well nourished Orientation/consciousness: patient oriented x3 [facility]: Yes normocephalic and Yes atraumatic Eyes General: appearance normal, both eyes and all related structures Pupils: Equal, round and reactive pupils present EOM: EOMs intact bilaterally Resp Effort & Inspection: normal respiratory effort Auscultation: clear to auscultation bilaterally Cardio Rate: regular rate Rhythm: abnormal rhythm Heart sounds: S1 normal heart sound present, S2 normal heart sound present, no gallops, no murmurs and no rubs Neuro General: patient oriented x3 and gait normal Cranial nerves: Yes Equal, round and reactive pupils present Psych Affect: normal affect Coding Level of Care Code Est Pt Level 3 (74774) Diagnoses Paroxysmal A-fib I48.0 Hyperlipidemia E78.5 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 I63.131 Laterality of affected vessel: right Precerebral and cerebral artery: carotid artery Assessment & Plan Assessment & Plan (1) Paroxysmal A-fib: Code(s): I48.0 - Paroxysmal atrial fibrillation Category: Medical Plan: S/p?cardioversion Still?has?a?regular?rhythm?to?auscultation Has?follow-up?with?Cardiology Continue?Eliquis?as?prescribed (2) Hyperlipidemia: Code(s): E78.5 - Hyperlipidemia, unspecified Category: Medical Plan: Lipids?appear?rather?well?controlled. 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 Has?upcoming?follow-up?with?Cardiology?and?remains?anticoagulated. We?discussed?a?referral?to?neurology?as?patient?had?said?he?had?an?appointment?with?Neurology?though?he?seems?to?be?confused?about?this. Discussed?making?a?referral?to?neurology?and?patient?declines?this?now. Will?continue?to?follow.??He?has?follow-up?with?Cardiology?as?mentioned?above.
[2024-03-02 09:51] VITALS: BP 126/70; PULSE 87; RESP 14; O2SAT 97; BMI 35.6
== END 2024-03-02 10:38 | disposition home or self-care (01) ==
PROVIDERS: PCP Family Medicine; Visit Provider Family Medicine
DX: I48.0 Paroxysmal atrial fibrillation (principal); E78.5 Hyperlipidemia, unspecified; I63.131 Cerebral infarction due to embolism of right carotid artery

== ENCOUNTER → 2024-03-02 09:36 | Outpatient (BNVA) | payer MEDICARE, SELFPAY | PROVIDERS: PCP Family Medicine; Visit Provider Family Medicine | DX: I48.0 Paroxysmal atrial fibrillation (principal); E78.5 Hyperlipidemia, unspecified; I63.131 Cerebral infarction due to embolism of right carotid artery | CPT/HCPCS: 99212 ==

== ENCOUNTER 2024-03-12 09:49 | Outpatient (AMB) | payer MEDICARE, SELFPAY ==
[2024-03-12 10:11] VITALS: BP 120/80; PULSE 78; BMI 35.3
--- NOTE | 2024-03-12 10:11 | A.OFFVIS_ITS ---
Vital Signs 03/12/24 10:11 Height 5 ft 8 in Weight 232 lb 5.875 oz BMI 35.3 BP 120/80 Blood Pressure Location Lt brachial Position Sitting Pulse 78 Pulse Source Monitor Intake Visit Reasons: Follow up post cardioversion Intake Note: f/up cardioversion Scrapper Required: No Accompanied by: Spouse Allergies No Known Allergies Allergy (Verified 03/02/24 09:48) Medication List - Last Reconciled 03/12/24 by ANGELITA Garcia apixaban (Eliquis) 5 mg PO BID atorvastatin 40 mg PO BEDTIME cyanocobalamin (vitamin B-12) 1,000 mcg PO DAILY digoxin 125 mcg PO DAILY levalbuterol tartrate 45 mcg/actuation 2 puffs inhalation Q4H PRN magnesium oxide 400 mg PO DAILY metoprolol succinate ER 50 mg See Protocol PO DAILY omega 5-kym-hbr-fish oil 300-1,000 mg (Fish Oil) 1 cap PO DAILY sacubitril-valsartan 24-26 mg (Entresto) 1 tab See Protocol PO BID HPI HPI Follow up post cardioversion: Details: Parrish is a 68-year-old male with past medical history of obesity, mild asthma, newer diagnosis of paroxysmal atrial fibrillation, 08/2022, who was on the appropriate medication management. Then this past year he stopped his medications as he believed his heart condition had stabilized. Then on 01/17/24 he had left mouth droop, drooling, shortness of breath and rapid heart palpitations prompting ER evaluation admission for CVA versus TIA, AFib RVR, acute systolic heart failure. He was restarted on rate slowing medications, Eliquis and put on Entresto. He remained in atrial fib at discharge, then underwent an outpatient cardioversion on 02/27/24, with recurrent AFib days later. He was intolerant to Multaq due to multiple side effects. He was put back on rate slowing medications and now presents for follow-up. Today he reports that he currently feels well. He is not having any shortness of breath at rest or with activity. He is denying any recent heart palpitations. He has no chest discomfort at rest or with activity. No lightheadedness, presyncope, syncope. No new neurological symptoms. His prior mouth droop is mostly resolved. He still has a small amount of drooling at times. He has been doing only light activities. No bleeding issues reported. is present. [facility] Medical History Embolic stroke Afib Arthritis of right acromioclavicular joint Asthma, mild intermittent, well-controlled Surgical History History of fusion of cervical spine History of repair of laceration History of carpal tunnel release Family History Father Dementia Mother CHF (congestive heart failure) Hypertension Brother Afib Son In good health Daughter In good health Daughter In good health Sister No problems noted. Social History Household Members: Spouse Housing: House Do you presently have visiting nurse or other home services: No Alcohol intake: current Alcohol intake frequency: 0-2 drinks per day Alcohol type: beer Patient Tobacco Use Status: Former Tobacco user Years Smoked: 15 e-Cigarette/Vaping Use: Never Used Second Hand Smoke Exposure: No service: No Current occupational status: retired Current occupational exposures/hazards: No Cognitive needs: No Hearing needs: No Vision needs: Yes (wears glasses) Review of Systems Const All systems reviewed & are unremarkable except as noted in HPI and below Denies chills, Denies fatigue, Denies fever(s), Denies frequent falls, Denies weakness, Denies weight gain and Denies weight loss ENT Denies dizziness Card Denies chest pain, Denies leg edema, Denies lightheadedness, Denies palpitations, Denies dyspnea and Reports dyspnea on exertion Resp Denies cough, Denies dyspnea and Reports dyspnea on exertion GI Denies hematochezia Musc Denies abnormal gait, Denies muscle weakness, Denies numbness, Denies radiating pain into limb and Denies tingling Neuro Denies abnormal gait, Denies dizziness, Denies frequent falls, Denies numbness, Denies tingling and Denies weakness Endo Denies fatigue and Denies palpitations Physical Exam Vital Signs: Last Vital Signs Pulse 78 03/12/24 10:11 BP 120/80 03/12/24 10:11 BMI result Body Mass Index 35.3 Const General: cooperative, healthy appearing, comfortable and no acute distress Orientation/consciousness: patient oriented x3 Neck Neck: Yes normal visual inspection and Yes no JVD Resp Effort & Inspection: normal respiratory effort Auscultation: clear to auscultation bilaterally, no crackles, no rales, no rhonchi and no wheezes Cardio Jugular venous distension: no JVD Rate: regular rate Rhythm: abnormal rhythm Heart sounds: S1 normal heart sound present, S2 normal heart sound present, no murmurs and no rubs Neuro General: patient oriented x3 Extrem General: Yes normal to inspection and No no pedal edema Psych Appearance: grossly normal Mental Status: mental status grossly normal Speech and movement: Normal speech and movement present Office Procedures EKG Details: Today, read by me, atrial fibrillation/flutter, incomplete right bundle branch block, rate 78, QTC 428 millisecond [id number], Complete Assessment & Plan Assessment & Plan (1) Atrial fibrillation with RVR: Code(s): I48.91 - Unspecified atrial fibrillation Category: Medical Plan: Newer finding of paroxysmal atrial fibrillation in patient with reports of heart palpitations, 08/2022. A Holter monitor on 08/26/2022 for 5 days showed atrial fibrillation 13.2% of the time. He was treated for heart rate control and with Eliquis for anticoagulation. He did have breakthrough heart palpitations and was put on Multaq. His echocardiogram from 08/26/2022 showed normal EF, mildly dilated left atrium, mildly dilated ascending aorta 3.9 cm, mild AR. Nuclear stress test 12/02/2022 showed good exercise tolerance, no EKG changes, probably normal myocardial perfusion. He was seen in the office on 01/16/2023 and was doing well. Then 1 year later on 01/17/2024 he presented to [facility] with mouth droop, drooling, shortness of breath and heart palpitations. He had not taken any of his medications for the previous 6 months. He was treated for CVA versus TIA, atrial fibrillation with RVR, cardiomyopathy/Congestive heart failure. Echocardiogram showed EF 30-35%, mild increase in the RV cavity size and decrease in the RV systolic function, ascending aorta 3.7 cm. He was restarted on rate slowing agents including metoprolol and digoxin. He was started on Eliquis for anticoagulation and Entresto for neurohormonal modulation. Upon discharge he was still in atrial fibrillation. He underwent a cardioversion with Dr. Wong on 02/27/2024. Follow-up EKG in the office showed recurrent atrial fibrillation and he was put on amiodarone load which he did not tolerate due to multiple side effects. -he has then was put back on metoprolol and digoxin. EKG done today shows atrial fibrillation, rate 78. Today he reports he has been feeling well overall. He is denying fatigue, shortness of breath or heart palpitations. He is interested in getting rid of atrial fibrillation. Discussed atrial fibrillation ablation and he is interested in pursuing this. Reviewed with Dr. Wong. No further plan for antiarrhythmics at this time. Will refer to [facility] EP. Will update echocardiogram to reassess EF. Continue current med management using metoprolol and digoxin. Digoxin of 0.9 done on 01/20/2024. Cardiology follow- up 3 months, sooner if needed. (2) Palpitations: Code(s): R00.2 - Palpitations Category: Medical Plan: As above (3) Paroxysmal A-fib: Code(s): I48.0 - Paroxysmal atrial fibrillation Category: Medical Plan: As above - currently persistent (4) Cardiomyopathy: Code(s): I42.9 - Cardiomyopathy, unspecified Category: Medical Plan: New finding of cardiomyopathy in the setting of AFib RVR. AFib has been persistent and attempts made at rhythm control. He is now being treated with rate control. He does not appear fluid overloaded on exam. He is not requiring diuretics. He is currently on Entresto and metoprolol XL for neurohormonal modulation. Updating echocardiogram to reassess EF. 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 Brain MRI 01/17/2024 shows a small subacute infarct within the right insular cortex, small subacute infarcts within the right boswell radiata. He was evaluated by Neurology. He is back on anticoagulation and reports strict compliance. Plan Time spent on chart review, documentation, interview and assessment Orders: Referrals Cardiac Electrophysiology Referral I48.19 - Other persistent atrial fibrillation Medications: New metoprolol succinate ER 50 mg See Protocol PO BID 180 tabs 1RF Changed From sacubitril-valsartan 24-26 mg (Entresto) 1 tab See Protocol PO BID 60 tabs 0RF To sacubitril-valsartan 24-26 mg (Entresto) 1 tab See Protocol PO BID 90 days 180 tabs 1RF Coding Level of Care Code Est Pt Level 4 (25142) Complex EM visit Add On G2211 Diagnoses Atrial fibrillation with RVR I48.91 Palpitations R00.2 Paroxysmal A-fib I48.0 Cardiomyopathy I42.9 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 I63.131 Precerebral and cerebral artery: carotid artery Laterality of affected vessel: right CPT Codes EKG - CPT: [id number], Complete ([id number]) Time Spent (min) 36
== END 2024-03-12 11:03 | disposition home or self-care (01) ==
PROVIDERS: PCP Family Medicine; Visit Provider Nurse Practitioner Family
DX: I48.91 Unspecified atrial fibrillation (principal); R00.2 Palpitations; I48.0 Paroxysmal atrial fibrillation; I42.9 Cardiomyopathy, unspecified; I63.131 Cerebral infarction due to embolism of right carotid artery
CPT/HCPCS: 93010; 99214; G2211

== ENCOUNTER → 2024-03-12 09:49 | Outpatient (BNVA) | payer MEDICARE, SELFPAY | PROVIDERS: PCP Family Medicine; Visit Provider Nurse Practitioner Family | DX: I48.91 Unspecified atrial fibrillation (principal); I63.131 Cerebral infarction due to embolism of right carotid artery; I42.9 Cardiomyopathy, unspecified; I48.0 Paroxysmal atrial fibrillation; R00.2 Palpitations; I45.19 Other right bundle-branch block; R94.31 Abnormal electrocardiogram [ECG] [EKG] | CPT/HCPCS: 93005; 99212 ==

== ENCOUNTER → 2024-03-29 10:33 | Outpatient (REF) | payer MEDICARE, SELFPAY | LOC: HO.CARD 10:33 | PROVIDERS: PCP Family Medicine; Visit Provider Nurse Practitioner Family | DX: I42.9 Cardiomyopathy, unspecified (principal) | CPT/HCPCS: 93308 ==

== ENCOUNTER → 2024-03-29 10:35 | Outpatient (BNV) | payer MEDICARE, SELFPAY | PROVIDERS: PCP Family Medicine; Visit Provider Internal Medicine Cardiovascular Disease | DX: I50.20 Unspecified systolic (congestive) heart failure (principal); I51.7 Cardiomegaly; I42.8 Other cardiomyopathies | CPT/HCPCS: 93308; 93321 ==

== ENCOUNTER 2024-04-29 13:22 | Outpatient (AMB) | payer MEDICARE, SELFPAY ==
[2024-04-29 13:45] VITALS: BP 100/56; PULSE 102; BMI 36.0
--- NOTE | 2024-04-29 13:45 | A.OFFVIS_ITS ---
Vital Signs 04/29/24 13:45 Height 5 ft 8 in Weight 236 lb 12.423 oz BMI 36.0 BP 100/56 L Blood Pressure Location Lt brachial Position Sitting Pulse 102 H Pulse Source Pulse Oximeter Intake Visit Reasons: 4-6 wk follow up Day Care Aide Required: No Accompanied by: Self / Same As Patient Allergies amiodarone Adverse Reaction (Verified 03/19/24 18:56) Unknown Metoprolol Allergy (Intermediate, Uncoded 03/19/24 18:56) Itching Medication List - Last Reconciled 04/29/24 by Silvio Wong MD apixaban (Eliquis) 5 mg PO BID atorvastatin 40 mg PO BEDTIME bisoprolol fumarate 5 mg PO DAILY digoxin 125 mcg PO DAILY levalbuterol tartrate 45 mcg/actuation 2 puffs inhalation Q4H PRN sacubitril-valsartan 24-26 mg (Entresto) 1 tab See Protocol PO BID 90 days HPI Comments Details: Parrish returns for follow-up. He has a history of paroxysmal atrial fibrillation. He was on Multaq/Eliquis but as he felt good he stopped them for a few months. Subsequently, admitted with a stroke. In that context, he was found to be back in atrial fibrillation but of unknown duration. Echocardiogram at shown cardiomyopathy. Subsequently, attempted cardioversion but he did not stay in sinus rhythm. He is back in atrial fibrillation. He has seen EP and pending ablation. For the most part he states he feels fine. No exertional chest pains. He is biking several miles with no issues. Physically active without any limitations. He is not having any active palpitations at this time. [facility] Medical History (Updated 04/29/24 @ 13:56 by Silvio Wong MD) Embolic stroke Afib Arthritis of right acromioclavicular joint Asthma, mild intermittent, well-controlled Surgical History History of fusion of cervical spine History of repair of laceration History of carpal tunnel release Family History Father Dementia Mother CHF (congestive heart failure) Hypertension Brother Afib Son In good health Daughter In good health Daughter In good health Sister No problems noted. Social History Household Members: Spouse Housing: House Do you presently have visiting nurse or other home services: No Alcohol intake: current Alcohol intake frequency: 0-2 drinks per day Alcohol type: beer Patient Tobacco Use Status: Former Tobacco user Years Smoked: 15 e-Cigarette/Vaping Use: Never Used Second Hand Smoke Exposure: No service: No Current occupational status: retired Current occupational exposures/hazards: No Cognitive needs: No Hearing needs: No Vision needs: Yes (wears glasses) Review of Systems Const Denies chills, Denies fatigue, Denies fever(s), Denies weight gain and Denies weight loss ENT Denies dizziness Card Reports chest pain, Reports irregular heart rhythm, Denies leg edema, Denies lightheadedness, Denies palpitations, Reports dyspnea on exertion, Denies orthopnea and Denies other Resp Denies cough and Reports dyspnea on exertion GI Denies hematochezia and Denies change in stool character Musc Denies abnormal gait, Denies muscle weakness, Denies numbness, Denies radiating pain into limb and Denies tingling Neuro Denies abnormal gait, Denies dizziness, Denies numbness and Denies tingling Endo Denies fatigue and Denies palpitations Physical Exam Vital Signs: Last Vital Signs Pulse 102 H 04/29/24 13:45 BP 100/56 L 04/29/24 13:45 BMI result Body Mass Index 36.0 Const General: comfortable and no acute distress Orientation/consciousness: patient oriented x3 HEENT Other: Unremarkable Head: Yes normal to inspection Neck Neck: Yes normal visual inspection Chest Chest palpation & inspection: normal inspection of the chest Resp Auscultation: clear to auscultation bilaterally Cardio Palpation: normal PMI Heart sounds: S1 normal heart sound present, S2 normal heart sound present, no gallops, no murmurs and no rubs GI Palpation (GI): Soft to palpation Back/Spine/Pelvis Other: unremarkable Skin General skin exam: no rashes or lesions noted Neuro General: patient oriented x3 Extrem General: Yes normal to inspection Psych Mental Status: mental status grossly normal Assessment & Plan Assessment & Plan (1) Persistent atrial fibrillation: Code(s): I48.19 - Other persistent atrial fibrillation Category: Medical Plan: Had cardioversion but back in atrial fibrillation. Could not tolerate amiodarone. Could not tolerate metoprolol. Now on bisoprolol. Also on digoxin. Awaiting ablation. Otherwise, continue anticoagulation without interruption. (2) Cardiomyopathy: Code(s): I42.9 - Cardiomyopathy, unspecified Category: Medical Plan: In the recent echocardiogram, LVEF of 30-35%. Could be related to atrial fibrillation. In 2022, normal LVEF. Myocardial perfusion imaging study with probably normal perfusion. On bisoprolol/Entresto. He has very mild legs for which could be just dependent edema. Less likely related to congestive heart failure. We discussed about diuretics but he states he already urinates a lot and hence holding off. If it gets worse he will contact us. 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 Plan During the discussion, I explained the primary focus is on controlling the atrial fibrillation and its cardiovascular implications. This includes maintaining rhythm control with procedures such as ablation and medication adherence. The benefits, such as symptom reduction, and potential risks associated with the procedure were discussed. I addressed the potential need for diuretics in managing the peripheral edema and emphasized moderation in exercise to avoid inducing arrhythmia. The patient expressed comprehension and agreement with the outlined plan, including the use of diuretics if symptoms worsen. I reiterated the importance of returning for follow-up and to report any significant changes or concerns. Patient Instructions: - Continue taking all prescribed medications.. - Limit exercise intensity to prevent arrhythmia exacerbation. - Monitor swelling; consider as-needed diuretic usage if necessary. - Follow up as directed, particularly following ablation. - Avoid any activity that significantly increases heart rate. - Report any new or worsening symptoms promptly. Coding Level of Care Code Est Pt Level 4 (16647) Complex EM visit Add On G2211 Diagnoses Persistent atrial fibrillation I48.19 Cardiomyopathy I42.9 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 I63.131 Laterality of affected vessel: right Precerebral and cerebral artery: carotid artery
== END 2024-04-29 14:08 | disposition home or self-care (01) ==
LOC: HO.HCS 13:23
PROVIDERS: PCP Family Medicine; Visit Provider Internal Medicine
DX: I48.19 Other persistent atrial fibrillation (principal); I42.9 Cardiomyopathy, unspecified; I63.131 Cerebral infarction due to embolism of right carotid artery
CPT/HCPCS: 99214; G2211

== ENCOUNTER → 2024-04-29 13:22 | Outpatient (BNVA) | payer MEDICARE, SELFPAY | PROVIDERS: PCP Family Medicine; Visit Provider Internal Medicine | DX: I48.19 Other persistent atrial fibrillation (principal); I42.9 Cardiomyopathy, unspecified; Z86.73 Personal history of transient ischemic attack (TIA), and cerebral infarction without residual deficits | CPT/HCPCS: 99212 ==

== ENCOUNTER 2024-05-06 10:33 | Outpatient (AMB) | payer MEDICARE, SELFPAY ==
--- NOTE | 2024-05-06 11:06 | MHC.PC.OV ---
Vital Signs 05/06/24 11:08 Height 5 ft 8 in Weight 236 lb 4 oz BMI 35.9 BP 102/66 Blood Pressure Location Lt brachial Position Sitting Respiration 14 Pulse 72 Pulse Source Pulse Oximeter Temp 98.0 F Temp Source Oral Pulse Oximetry (%) 95 Oxygen Delivery Method Room Air Intake Visit Reasons: f/u hypertension, chronic conditions Intake Note: patient is here to follow up for htn and chronic conditions Chief Service Dispatcher Required: No Allergies amiodarone Adverse Reaction (Verified 05/06/24 11:07) Unknown Metoprolol Allergy (Intermediate, Uncoded 03/19/24 18:56) Itching Tobacco use date assessed: 03/18/23 Dental Screening Dental Screen Date: 12/17/22 HPI f/u hypertension, chronic conditions HPI Details 64 y/o male presents to f/u chronic conditions. Blood pressure today 102/66, 72p. He is on Entresto. Persistent AFib and continues to f/u with Cardiology. Awaiting ablation. Continues to take digoxin, Eliquis, bisoprolol. [facility] Medical History (Updated 05/06/24 @ 11:26 by Satish Kapoor) Embolic stroke Afib Arthritis of right acromioclavicular joint Asthma, mild intermittent, well-controlled Surgical History History of fusion of cervical spine History of repair of laceration History of carpal tunnel release Family History Father Dementia Mother CHF (congestive heart failure) Hypertension Brother Afib Son In good health Daughter In good health Daughter In good health Sister No problems noted. Social History Household Members: Spouse Housing: House Do you presently have visiting nurse or other home services: No Alcohol intake: current Alcohol intake frequency: 0-2 drinks per day Alcohol type: beer Patient Tobacco Use Status: Former Tobacco user Years Smoked: 15 e-Cigarette/Vaping Use: Never Used Second Hand Smoke Exposure: No service: No Current occupational status: retired Current occupational exposures/hazards: No Cognitive needs: No Hearing needs: No Vision needs: Yes (wears glasses) Questionnaire Thrive Questionnaire Date Thrive assessed: 03/02/24 I am a: Patient JOSÉ MIGUEL-7 AMB Questionnaire JOSÉ MIGUEL-7 Date JOSÉ MIGUEL - 7 assessed: 12/17/22 Source: Developed by Drs. Delano Thibodeaux, Toma Del Rosario, Jon Pan and colleagues, with an educational ronn from Home Inventory S[pecialists. Physical exam (Primary Care) Vital Signs: Last Vital Signs Temp 98.0 F 05/06/24 11:08 Pulse 72 05/06/24 11:08 Resp 14 05/06/24 11:08 BP 102/66 05/06/24 11:08 Pulse Ox 95 05/06/24 11:08 Oxygen Delivery Method Room Air 05/06/24 11:08 BMI result Body Mass Index 35.9 Tobacco/Smoking Status: Tobacco use Status Tobacco use date assessed 03/18/23 05/06/24 11:14 Patient Tobacco Use Status Former Tobacco user 05/06/24 11:14 e-Cigarette/Vaping Use Never Used 05/06/24 11:14 Thrive Assessment: Date of Thrive Assessment Date Thrive assessed 03/02/24 05/06/24 11:14 Coding Level of Care Code Est Pt Level 3 (44107) Diagnoses Persistent atrial fibrillation I48.19 Hypertension I10 Assessment & Plan Assessment & Plan (1) Persistent atrial fibrillation: Code(s): I48.19 - Other persistent atrial fibrillation Category: Medical Plan: Ongoing?persistent?atrial?fibrillation. He?is?scheduled?for?ablation?in?May Meantime?he?is?on?digoxin?and?bisoprolol?as?well?as?anticoagulated?with?Eliquis Rate?is?well?controlled Continue?current?medications Follow-up?with?Cardiology?as?recommended (2) Hypertension: Code(s): I10 - Essential (primary) hypertension Category: Medical Plan: Blood?pressure?is?controlled.??Goal?is?less?than?130/80 Feels?well,?no?dizziness?or?weakness Continue?current?medications
[2024-05-06 11:08] VITALS: BP 102/66; PULSE 72; RESP 14; TEMP 36.7; O2SAT 95; BMI 35.9
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
== END 2024-05-06 14:56 | disposition home or self-care (01) ==
LOC: HO.HMCFM 10:34
PROVIDERS: PCP Family Medicine; Visit Provider Family Medicine
DX: I48.19 Other persistent atrial fibrillation (principal); I10 Essential (primary) hypertension

== ENCOUNTER → 2024-05-06 10:33 | Outpatient (BNVA) | payer MEDICARE, SELFPAY | PROVIDERS: PCP Family Medicine; Visit Provider Family Medicine | DX: I48.19 Other persistent atrial fibrillation (principal); I10 Essential (primary) hypertension | CPT/HCPCS: 99212 ==

== ENCOUNTER → 2024-07-09 09:10 | Outpatient (BNVA) | payer MEDICARE, SELFPAY | PROVIDERS: PCP Family Medicine; Visit Provider Internal Medicine | DX: Z13.89 Encounter for screening for other disorder (principal) ==

== ENCOUNTER 2024-08-03 08:48 | Outpatient (AMB) | payer MEDICARE, SELFPAY ==
--- NOTE | 2024-08-03 08:56 | A.OFFVIS_ITS ---
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 He has a history of paroxysmal atrial fibrillation. He was on Multaq/Eliquis but as he felt good he stopped them for a few months. Subsequently, admitted with a stroke. In that context, he was found to be back in atrial fibrillation but of unknown duration. Echocardiogram with cardiomyopathy. Subsequently, attempted cardioversion but he did not stay in sinus rhythm. He is back in atrial fibrillation. He has seen EP and recently underwent ablation. Overall, he states he feels good. Absolutely no cardiac symptoms. [facility] Medical History Embolic stroke Afib Arthritis of right acromioclavicular joint Asthma, mild intermittent, well-controlled Surgical History History of fusion of cervical spine History of repair of laceration History of carpal tunnel release Family History Father Dementia Mother CHF (congestive heart failure) Hypertension Brother Afib Son In good health Daughter In good health Daughter In good health Sister No problems noted. Social History Household Members: Spouse Housing: House Do you presently have visiting nurse or other home services: No Alcohol intake: current Alcohol intake frequency: 0-2 drinks per day Alcohol type: beer Patient Tobacco Use Status: Former Tobacco user Years Smoked: 15 e-Cigarette/Vaping Use: Never Used Second Hand Smoke Exposure: No service: No Current occupational status: retired Current occupational exposures/hazards: No Cognitive needs: No Hearing needs: No Vision needs: Yes (wears glasses) Review of Systems Const Denies chills, Denies fatigue, Denies fever(s), Denies frequent falls, Denies weakness, Denies weight gain and Denies weight loss ENT Denies dizziness Card Denies chest pain, Denies leg edema, Denies lightheadedness, Denies palpitations, Denies dyspnea and Denies dyspnea on exertion Resp Denies cough, Denies dyspnea and Denies dyspnea on exertion GI Denies hematochezia Musc Denies abnormal gait, Denies muscle weakness, Denies numbness, Denies radiating pain into limb and Denies tingling Neuro Denies abnormal gait, Denies dizziness, Denies frequent falls, Denies numbness, Denies tingling and Denies weakness Endo Denies fatigue and Denies palpitations Physical Exam Vital Signs: Last Vital Signs Pulse 54 08/03/24 08:57 BP 120/72 08/03/24 08:57 BMI result Body Mass Index 34.1 Const General: comfortable and no acute distress Orientation/consciousness: patient oriented x3 HEENT Other: Unremarkable Head: Yes normal to inspection Neck Neck: Yes normal visual inspection Chest Chest palpation & inspection: normal inspection of the chest Resp Auscultation: clear to auscultation bilaterally Cardio Palpation: normal PMI Heart sounds: S1 normal heart sound present, S2 normal heart sound present, no gallops, no murmurs and no rubs GI Palpation (GI): Soft to palpation Back/Spine/Pelvis Other: unremarkable Skin General skin exam: no rashes or lesions noted Neuro General: patient oriented x3 Extrem General: Yes normal to inspection Psych Mental Status: mental status grossly normal Assessment & Plan Assessment & Plan (1) Persistent atrial fibrillation: Code(s): I48.19 - Other persistent atrial fibrillation Category: Medical Plan: Failed cardioversion. Now status post ablation. Many medication tolerance including amiodarone, metoprolol. Currently stable on bisoprolol and continue that. Digoxin can be stopped. Continue anticoagulation. Check Holter. (2) Cardiomyopathy: Code(s): I42.9 - Cardiomyopathy, unspecified Category: Medical Plan: In the recent echocardiogram, LVEF of 30-35%. Could be related to atrial fibrillation. In 202, normal LVEF. Myocardial perfusion imaging study with probably normal perfusion. On bisoprolol/Entresto. We will recheck echocardiogram to see if the LVEF has improved or not. 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 Listed to be on statins but he is not sure if he is actually taking it. Plan Discussion Notes I discussed the continuation of medications including Eliquis, Entresto, and bisoprolol. The importance of tracking heart function through echocardiogram and rhythm monitoring before the next appointment was emphasized. We reviewed past digoxin therapy, agreed on discontinuation, and addressed the history of atorvastatin use, considering the prior significant cholesterol reduction. We discussed the importance of lipid profile monitoring. I advised continuing physical activity, as the patient reported good tolerance and weight loss. A follow-up appointment in three months was agreed upon to assess the patient's cardiovascular progress and lipid management. Patient was informed and verbally consented to the use of an ambient scribe for clinic note documentation during this visit. Orders: Orders ECG 3 day holter monitor 3 Months I48.19 - Other persistent atrial fibrillation CA echo transthoracic complete 3 Months I48.19 - Other persistent atrial fibrillation Comprehensive [place]. Panel Fast 3 Months I48.91 - Unspecified atrial fibrillation, Z00.00 - Encounter for general adult medical examination without abnormal findings Lipid Panel 3 Months E78.5 - Hyperlipidemia, unspecified, Z00.00 - Encounter for general adult medical examination without abnormal findings Medications: Refilled sacubitril-valsartan 24-26 mg (Entresto) 1 tab See Protocol PO BID 180 tabs 3RF 90 days Discontinued digoxin Discontinued Reason: Doctor's Order 125 mcg PO DAILY 90 tabs 3RF Patient Instructions: - Continue taking Eliquis, Entresto, and bisoprolol. - Do not take digoxin anymore. - Regularly exercise, like biking. - Be prepared for an echocardiogram and heart monitor before the next visit. - Report any changes in symptoms or new issues. - Follow-up in three months. - Maintain a healthy diet to manage cholesterol. Coding Level of Care Code Est Pt Level 4 (52032) Complex EM visit Add On G2211 Diagnoses Persistent atrial fibrillation I48.19 Cardiomyopathy I42.9 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 I63.131 Laterality of affected vessel: right Precerebral and cerebral artery: carotid artery
[2024-08-03 08:57] VITALS: BP 120/72; PULSE 54; BMI 34.1
== END 2024-08-03 09:15 | disposition home or self-care (01) ==
LOC: HO.HCS 08:49
PROVIDERS: PCP Family Medicine; Visit Provider Internal Medicine
DX: I48.19 Other persistent atrial fibrillation (principal); I42.9 Cardiomyopathy, unspecified; I63.131 Cerebral infarction due to embolism of right carotid artery
CPT/HCPCS: 99214; G2211

== ENCOUNTER → 2024-08-03 08:48 | Outpatient (BNVA) | payer MEDICARE, SELFPAY | PROVIDERS: PCP Family Medicine; Visit Provider Internal Medicine | DX: I48.19 Other persistent atrial fibrillation (principal); I42.9 Cardiomyopathy, unspecified; I63.131 Cerebral infarction due to embolism of right carotid artery | CPT/HCPCS: 99212 ==

== ENCOUNTER → 2024-10-29 09:38 | Outpatient (REF) | payer MEDICARE, SELFPAY ==
--- NOTE | 2024-10-29 09:39 | CA_ITS ---
Transthoracic Echocardiogram Patient (Last, First, Middle): Parrish Kaiser, Gender: M Date of : 1955 Age: 69 Procedure Date: 10/29/2024 Procedure Type: Transthoracic Echocardiogram Location: OP Height: 172.72 cm Weight: 95.26 kg BSA: 2.09 m2 Heart Rate: 58 bpm BP: 130 / 78 mmHg Rehabilitation Therapy Technician: TO Referring MD: Silvio Wong MD Yoker: Salvador Rodriguez MD Symptoms: I48.19 - Other persistent atrial fibrillation Study Quality: Adequate w contrast ECG Rhythm: Sinus Conclusions: - 1. Low normal LV ejection fraction of 50-55% with grade 1 diastolic dysfunction 2. Mildly dilated left atrium 3. Mild aortic and mitral regurgitation 4. Mildly dilated ascending aorta at 3.7 cm 5. Normal RV systolic pressure 6. No gross pericardial effusion Findings Procedure Information Contrast agent, definity, is being given per protocol without apparent complications. Left Ventricle Normal left ventricular cavity size. There is normal left ventricular wall thickness. The left ventricular systolic function is low normal. The visually estimated ejection fraction is between 50-55%. Spectral Doppler is indicative of an impaired relaxation filling pattern. E/E prime ratio is <8, consistent with normal filling pressures. Evidence suggests grade I (mild) diastolic dysfunction. Right Ventricle Normal right ventricular cavity size and systolic function. Atria The left atrium is mildly dilated. There is no evidence of interatrial shunt. The right atrium is normal in size. Aortic Valve There is mild calcification of the aortic valve. There is no aortic valve stenosis. There is mild aortic valve regurgitation. Mitral Valve There is mild anterior and posterior mitral leaflet thickening. There is mild mitral annular calcification. There is mild mitral valve regurgitation. There is no mitral valve stenosis. Pulmonic Valve The pulmonic valve was not well visualized. Tricuspid Valve Likely normal tricuspid valve structure and function. There is trace tricuspid valve regurgitation. The right ventricular systolic pressure is normal. The right ventricular systolic pressure is 23 mmHg. Normal right atrial pressure. There is no evidence of pulmonary hypertension. Great Vessels The pulmonary artery was not well visualized. There is mild dilatation of the ascending aorta measuring 3.70 cm. Venous The inferior vena cava is normal in size and collapses greater than 50% with inspiration. Pericardium/Pleural There is no evidence of pericardial effusion. Prior Study Comparison Significant changes compared to prior study dated: 03/29/2024. LV function has improved to low normal range Measurements 2D Linear Measurements IVSd: 0.84 0.6-0.9/0.6-1.0 cm LVIDd: 5.65 3.9-5.3/4.2-5.9 cm LVIDd Index: 2.70 2.4-3.2/2.2-3.1 cm/m2 LVIDs: 3.58 2.0-3.6 cm LVPWd: 0.70 0.7-1.1 cm LA Diam: 4.30 2.7-3.8/3.0-4.0 cm LAIDs Index: 2.06 1.5-2.3 cm/m2 LV Mass: 198.50 67-162/88-224 g LV Mass Index: 94.98 43-95/49-115 g/m2 LVOT Diam: 2.30 3.0+(-)1.3 cm Mitral Valve MV Pk E: 0.52 MV PK A: 0.45 MV Decel Time: 208.00 E/A: 1.20 E'Lateral: 7.40 E'Medial: 5.22 E/E' Med: 9.90 E/E' Lat: 7.00 PHT: 61.00 MVA PHT: 3.61 Decel Cobb: 2.50 Aortic Valve AoV Pk Alfie: 1.49 AoV Mn Alfie: 1.00 AoV VTI: 0.31 AoV Pk Grad: 9.00 Aov Mn Grad: 5.00 JENELLE Cont.VTI: 2.27 AI Pk Alfie: 4.25 AI Cobb: 1.48 LVOT LVOT Pk Alfie: 0.79 LVOT Mn Alfie: 0.59 LVOT VTI: 0.17 LVOT Pk Grad: 2.00 LVOT Mn Grad: 1.00 LVOT Diam: 2.30 LVOT Area: 4.15 Diastolic Function MV Pk E: 0.52 MV Pk A: 0.45 E/A: 1.20 E'Medial: 5.22 E/E' Med: 9.90 E' Laterial: 7.40 E/E' Lat: 7.00 Right Ventricle TAPSE (mm): 24.30 TVS' Alfie: 12.20 Tricuspid Valve TR Pk Alfie: 2.23 TR Pk Grad: 20.00 RA Press: 3.00 RVSP: 23.00 Great Vessels Aorta Sinus of Valsalva: 3.60 2.0-3.5 cm Ao Asc: 3.70 2.1-3.4 cm Ao Arch: 3.20 Updated in Other Vendor System with Status of Final Salvador Rodriguez MD electronically signed on 10/29/2024 3:30:33 PM with status of Final
--- NOTE | 2024-10-29 09:39 | HM_ITS ---
* Total monitoring time 3 days. * Underlying rhythm is sinus with an average rate of 80/Min. * Rare supraventricular ectopy. * Rare ventricular ectopy. * No significant pauses or high-grade AV blocks. * No patient markers or diary events. MTDD
== END ==
LOC: HO.CARD 09:38
PROVIDERS: PCP Family Medicine; Visit Provider Internal Medicine
DX: I48.19 Other persistent atrial fibrillation (principal)
CPT/HCPCS: 93242; 93306; Q9957

== ENCOUNTER → 2024-10-29 09:39 | Outpatient (BNV) | payer MEDICARE, SELFPAY | PROVIDERS: PCP Family Medicine; Visit Provider Internal Medicine Cardiovascular Disease | DX: I48.19 Other persistent atrial fibrillation (principal); I35.1 Nonrheumatic aortic (valve) insufficiency; I34.0 Nonrheumatic mitral (valve) insufficiency | CPT/HCPCS: 93306 ==

== ENCOUNTER 2024-12-09 07:49 | Outpatient (AMB) | payer MEDICARE, SELFPAY ==
[2024-12-09 08:16] VITALS: BP 116/62; PULSE 71; BMI 35.1
--- NOTE | 2024-12-09 08:16 | MHC.OFFVIS ---
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 He has a history of paroxysmal atrial fibrillation. He was on Multaq/Eliquis but as he felt good he stopped them for a few months. Subsequently, admitted with a stroke. In that context, he was found to be back in atrial fibrillation but of unknown duration. Echocardiogram with cardiomyopathy. Subsequently, attempted cardioversion but he did not stay in sinus rhythm and back in atrial fibrillation. He has seen EP and recently underwent ablation. Overall, he states he feels good. He was taking bisoprolol and Entresto but he states that he gets a lot of side effects which she believes are all medication related and is not taking them regularly. [facility] Medical History Embolic stroke Afib Arthritis of right acromioclavicular joint Asthma, mild intermittent, well-controlled Surgical History History of fusion of cervical spine History of repair of laceration History of carpal tunnel release Family History Father Dementia Mother CHF (congestive heart failure) Hypertension Brother Afib Son In good health Daughter In good health Daughter In good health Sister No problems noted. Social History Household Members: Spouse Housing: House Do you presently have visiting nurse or other home services: No Alcohol intake: current Alcohol intake frequency: 0-2 drinks per day Alcohol type: beer Patient Tobacco Use Status: Former Tobacco user Years Smoked: 15 e-Cigarette/Vaping Use: Never Used Second Hand Smoke Exposure: No service: No Current occupational status: retired Current occupational exposures/hazards: No Cognitive needs: No Hearing needs: No Vision needs: Yes (wears glasses) Review of Systems Const Denies daytime sleepiness, Denies difficulty sleeping, Denies snoring, Denies stops breathing during sleep and Denies weakness Card Denies chest pain, Denies rapid heart rate, Denies irregular heart rhythm, Denies claudication, Denies leg edema, Denies lightheadedness, Denies palpitations, Reports dyspnea, Denies dyspnea on exertion, Denies orthopnea, Denies paroxysmal nocturnal dyspnea and Denies slow heart rate Resp Denies cough, Reports dyspnea, Denies dyspnea on exertion and Denies snoring GI Reports no additional complaints, Denies hematochezia, Denies change in stool character and Denies dyspepsia Musc Denies abnormal gait, Denies muscle weakness and Denies numbness Neuro Denies abnormal gait, Denies numbness and Denies weakness Endo Denies palpitations Physical Exam Vital Signs: Last Vital Signs Pulse 71 12/09/24 08:16 BP 116/62 12/09/24 08:16 BMI result Body Mass Index 35.1 Const General: comfortable and no acute distress Orientation/consciousness: patient oriented x3 HEENT Other: Unremarkable Head: Yes normal to inspection Neck Neck: Yes normal visual inspection Chest Chest palpation & inspection: normal inspection of the chest Resp Auscultation: clear to auscultation bilaterally Cardio Palpation: normal PMI Heart sounds: S1 normal heart sound present, S2 normal heart sound present, no gallops, no murmurs and no rubs GI Palpation (GI): Soft to palpation Back/Spine/Pelvis Other: unremarkable Skin General skin exam: no rashes or lesions noted Neuro General: patient oriented x3 Extrem General: Yes normal to inspection Psych Mental Status: mental status grossly normal Assessment & Plan Assessment & Plan (1) Paroxysmal A-fib: Code(s): I48.0 - Paroxysmal atrial fibrillation Category: Medical Plan: Failed cardioversion. Now status post ablation. Many medication intolerances including amiodarone, metoprolol. He was then taking bisoprolol but he stopped that too saying he cannot tolerate it. Recommended that he at least continues the Eliquis without interruption. (2) Cardiomyopathy: Code(s): I42.9 - Cardiomyopathy, unspecified Category: Medical Plan: In the echocardiogram, LVEF is 50-55%. Previously, as low as 30-35%. Suspect tachycardia induced cardiomyopathy with mostly recovered LVEF. Myocardial perfusion imaging study with probably normal perfusion. Medication noncompliance+/-intolerances and he is no longer taking either the bisoprolol or the Entresto. We discussed about this today but unlikely that he is going to take any meds. 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 Plan Discussion Notes During the consultation, we discussed the patient's atrial fibrillation management, emphasizing the importance of continuing Eliquis to prevent complications. Patient was informed and verbally consented to the use of an ambient scribe for clinic note documentation during this visit. Patient Instructions: - Continue taking Eliquis as prescribed. - Report any new or worsening symptoms to your healthcare provider. - Follow up in six months or sooner if needed. Coding Level of Care Code Est Pt Level 4 (88631) Complex EM visit Add On G2211 Diagnoses Paroxysmal A-fib I48.0 Cardiomyopathy I42.9 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 I63.131 Laterality of affected vessel: right Precerebral and cerebral artery: carotid artery
== END 2024-12-09 08:31 | disposition home or self-care (01) ==
LOC: HO.HCS 07:50
PROVIDERS: PCP Family Medicine; Visit Provider Internal Medicine
DX: I48.0 Paroxysmal atrial fibrillation (principal); I42.9 Cardiomyopathy, unspecified; I63.131 Cerebral infarction due to embolism of right carotid artery
CPT/HCPCS: 99214; G2211

== ENCOUNTER → 2024-12-09 07:49 | Outpatient (BNVA) | payer MEDICARE, SELFPAY | PROVIDERS: PCP Family Medicine; Visit Provider Internal Medicine | DX: I48.0 Paroxysmal atrial fibrillation (principal); I42.9 Cardiomyopathy, unspecified; I63.131 Cerebral infarction due to embolism of right carotid artery | CPT/HCPCS: 99212 ==

== ENCOUNTER 2024-12-17 10:51 | Outpatient (AMB) | payer MEDICARE, SELFPAY ==
[2024-12-17 10:54] VITALS: BP 142/78; PULSE 85; TEMP 36.8; O2SAT 98; BMI 34.5
--- NOTE | 2024-12-17 10:54 | AM.OFFWIN_ITS ---
Intake Vital Signs 12/17/24 10:54 Height 5 ft 8 in Weight 227 lb BMI 34.5 BP 142/78 H Blood Pressure Location Lt brachial Position Sitting Pulse 85 Pulse Source Pulse Oximeter Temp 98.2 F Temp Source Oral Pulse Oximetry (%) 98 Oxygen Delivery Method Room Air Intake Visit Reasons: EP-lt side chest tick bite Intake Note: pt presents with beginning of a bulls eye rash left chest s/p tick removal 2 days ago Patient Tobacco Use Status: Former Tobacco user Allergies metoprolol Allergy (Mild, Verified 12/17/24 10:56) Itching amiodarone Adverse Reaction (Verified 12/17/24 10:56) Unknown Do you need a note to return to daycare/school/sports/work: No HPI HPI Comments History of Present Illness Details This is a 69-year-old male with a past medical history of atrial fibrillation currently maintained on Eliquis presenting for evaluation of redness around the site of a tick bite that occurred earlier this week. Patient states on Friday he noted a tick imbedded in the left anterior chest wall and he was able to remove the entire tick at that time. Patient noted today that there was redness surrounding this lesion. Patient denies having any fevers, chills or pain at the site of the tick removal. [facility] History Embolic stroke Afib Arthritis of right acromioclavicular joint Asthma, mild intermittent, well-controlled Surgical History History of fusion of cervical spine History of repair of laceration History of carpal tunnel release Family History Father Dementia Mother CHF (congestive heart failure) Hypertension Brother Afib Son In good health Daughter In good health Daughter In good health Sister No problems noted. Social History Household Members: Spouse Housing: House Do you presently have visiting nurse or other home services: No Alcohol intake: current Alcohol intake frequency: 0-2 drinks per day Alcohol type: beer Patient Tobacco Use Status: Former Tobacco user Years Smoked: 15 e-Cigarette/Vaping Use: Never Used Second Hand Smoke Exposure: No service: No Current occupational status: retired Current occupational exposures/hazards: No Cognitive needs: No Hearing needs: No Vision needs: Yes (wears glasses) Review of Systems Const All systems reviewed & are unremarkable except as noted in HPI and below Denies body aches, Denies chills, Denies fatigue and Denies fever(s) Eyes Reports no additional complaints Card Reports no additional complaints Resp Reports no additional complaints Musc Reports no additional complaints, Denies myalgias, Denies muscle cramps and Denies muscle weakness Skin/Breast Reports system reviewed and no additional complaints, except as documented and Reports change in pigmentation (left anterior chest wall) Neuro Reports no additional complaints Psych Reports no additional complaints Endo Reports no additional complaints and Denies fatigue Aller/Immun Reports no additional complaints Physical Exam Vital Signs: BMI result Body Mass Index 34.5 Const General: cooperative, healthy appearing, comfortable, no acute distress, well developed, alert, awake and Physically active Nutritional Appearance: average body habitus Orientation/consciousness: patient oriented x3 Limitations: no limitations Skin Other: single excoriation left anterior chest wall with annular macular erythema s urrounding lesion with central clearing -- erythema measuring 15cm in diameter. Neuro General: patient oriented x3 Psych Appearance: grossly normal Mental Status: mental status grossly normal Insight: Good insight present (Psych) Judgement: Good judgement present (Psych) Assessment & Plan Assessment & Plan (1) Erythema migrans (Lyme disease): Comment: Patient's history coupled with his examination is consistent with an erythema migrans lesion and he will be discharged home with doxycycline. Code(s): A69.20 - Lyme disease, unspecified Plan: Doxycycline 100 mg b.i.d. times 14 days. Testing for Lyme disease is deferred at this time. Medications: New doxycycline monohydrate 100 mg PO BID 28 caps 0RF 14 days Coding Level of Care Code Est Pt Level 3 (12559) Diagnoses Erythema migrans (Lyme disease) A69.20 Time Spent (min) 20
== END 2024-12-17 11:10 | disposition home or self-care (01) ==
PROVIDERS: PCP Family Medicine; Visit Provider Physician Assistant
DX: A69.20 Lyme disease, unspecified (principal)

== ENCOUNTER → 2024-12-17 10:51 | Outpatient (BNVA) | payer MEDICARE, SELFPAY | PROVIDERS: PCP Family Medicine; Visit Provider Physician Assistant | DX: A69.20 Lyme disease, unspecified (principal) | CPT/HCPCS: 99212 ==